=== PATIENT | female | born 1945 | race African-American/Black ===

== ENCOUNTER 2020-12-20 21:20 | Emergency (ER) | payer OTHER, SELFPAY ==
[2020-12-20 21:18] VITALS: BP 150/97; PULSE 90; RESP 14; TEMP 35.9; O2SAT 100
[2020-12-20 22:38] VITALS: PULSE 88; RESP 12; O2SAT 100
[2020-12-20 23:45] VITALS: PULSE 92; RESP 14
[2020-12-20 23:47] VITALS: BP 140/83; PULSE 92; RESP 13
[2020-12-21] VITALS: PULSE 93; RESP 16
[2020-12-21 00:02] VITALS: BP 143/106; PULSE 84; RESP 13
[2020-12-21 00:03] VITALS: PULSE 95; RESP 18
--- NOTE | 2020-12-21 01:14 | ED.WOUNDLAC ---
HPI - Wound/Laceration General Chief Complaint: Wound/Laceration Stated Complaint: leg pain Time Seen by Provider: 12/21/20 01:12 Source: EMS and RN notes reviewed Mode of arrival: EMS History of Present Illness HPI narrative: Patient is 75 years old -[place] female brought to the emergency room by ambulance from residential because of laceration at the left lower leg. Patient was trying to move out of their wheelchair to a bed and somehow lacerated her leg during this process. Patient denies other injuries. Related Data Allergies Allergy/AdvReac Type Severity Reaction Status Date / Time No Known Allergies Allergy Verified 12/20/20 21:56 Review of Systems Review of Systems: ROS unobtainable: Yes unobtainable due to mental status Exam Narrative: General appearance: Well-developed, well-nourished Skin: Normal color, laceration left ankle medially Head: Normocephalic, nontraumatic Eyes: Clear conjunctiva ENT: Oropharynx normal, ears normal, nose normal Neck: Supple, nontender Chest and respiratory: Airway patent, no respiratory distress, no accessory muscle use Heart: Regular rate/rhythm Abdomen: Soft, nontender, no organomegaly, quiet bowel sounds Vascular: Normal peripheral pulses, normal capillary refill. Musculoskeletal: Normal range of motion, nontender back Neurologic: Alert and oriented to her name and age only Course Course Emergency Course: Improved Vital Signs Vital signs: Vital Signs Temperature 35.9 C L 12/20/20 21:18 Pulse Rate 90 12/20/20 21:18 Respiratory Rate 14 12/20/20 21:18 Blood Pressure 150/97 H 12/20/20 21:18 Pulse Oximetry 100 12/20/20 21:18 Temperature 35.9 C L 12/20/20 21:18 Pulse Rate 90 12/20/20 21:18 Respiratory Rate 14 12/20/20 21:18 Blood Pressure 150/97 H 12/20/20 21:18 Pulse Oximetry 100 12/20/20 21:18 Procedures Laceration Laceration 1: Date: 12/21/20 Time: 01:29 Site: lower extremity Side (If applicable): left Size (cm): 7 Description: irregular Depth: simple, single layer Pre-repair: wound explored ====== Skin Level ====== Skin layer closed with: yoan (7) ====== Subcutaneous Layer ====== ====== Muscle Layer ====== ====== Tendon Layer ====== MDM - Wound/Laceration Differential Diagnosis Differential diagnosis: Likely laceration Critical Care Time Critical Care Time Critical Care Time: No Discharge Plan Discharge Clinical Impression: Laceration Patient Disposition: NH Correction/Asst Living Condition: Stable Instructions: Antibiotic Form, Laceration (DC) Additional Instructions: Return if symptoms are worsening , call your family physician for appointment, take Tylenol as as needed for aches and pain, continue home medications. Remove yoan in 10 days Prescriptions: New cephalexin 500 mg capsule 500 mg PO Q8H Qty: 30 RF: 0 Follow-up/Referrals: Keanu Bello MD [Physician] - UNKNOWN,DOCTOR [Primary Care Provider] -
[2020-12-21] MEDS: TETANUS,DIPHTHERIA,AC PERTUSSIS ADULT (0.5 ML) BOOSTRIX IM (03:15)
[2020-12-21] MEDS: CEPHALEXIN 500 MG CAPSULE PO (03:20)
--- NOTE | 2020-12-21 03:58 | PC.NURSE ---
Report to [facility] staff nurse at 0130.
== END 2020-12-21 04:06 ==
PROVIDERS: Emergency Provider Emergency Medicine
DX: S81.812A Laceration without foreign body, left lower leg, initial encounter (principal); W26.9XXA Contact with unspecified sharp object(s), initial encounter; Z23 Encounter for immunization
CPT/HCPCS: 12001; 90471; 90715; 99283; A9270

== ENCOUNTER 2022-04-28 10:43 | Inpatient (IN) | payer OTHER, SELFPAY ==
[2022-04-28] VITALS (20 sets, daily range): BP systolic 110–132; BP diastolic 57–75; PULSE 82–111; RESP 12–23; TEMP 35.8–36.2; O2SAT 96–100; BMI 21.4
--- NOTE | ~2022-04-28 | CT_ITS ---
EXAMINATION: CT abdomen pelvis w con DATE: 04/28/2022 12:21 INDICATION: Abdominal pain, nausea and vomiting TECHNIQUE: Computed tomography (CT) of the abdomen and pelvis was performed with 100 CC Omnipaque 350 intravenous contrast. Automated exposure control and iterative reconstruction technique were employe d. Exam dose: 580.06 mGy-cm total exam DLP. COMPARISON: None. FINDINGS: Mild atelectasis at the lung bases. Cardiomegaly. No pericardial or pleural effusion. Numerous stones and sludge are noted in the dependent aspect of the gallbladder. No gallbladder wall thickening or pericholecystic fluid or fat stranding is detected. No hepatic space-occupying mass lesion is detected. Normal splenic size. The pancreas is not optimall y outlined. No bile duct or pancreatic duct dilatation is evident. No adrenal mass lesion is evident. No renal mass lesion. Moderate bilateral hydronephrosis and very prominently distended urinary bladder. There is a Elias ca theter balloon inflated the junction of the urethra and urinary bladder. There is a very large uterus, measuring in excess of 20 cm vertical dimension with very prominent fib roid change of the fundus, which measures up to 9.7 cm AP dimension, with associated scattered calcif ications. There is atherosclerotic calcification of the abdominal aorta and iliac arteries; no abdominal aortic aneurysm. No bowel obstruction or intraperitoneal free air is evident. Diverticulosis of the colon; no apparent diverticulitis. Moderate anterior wedge compression fracture deformity of T12. Moderate chronic compression fracture deformity of L4. There is borderline grade 2/grade 3 anterolisthesis at L4-5 due to degenerative change at the apophys eal joints. There is moderately severe degenerative disc disease at L4-5. Moderately severe degenerative disc disease at L5-S1. IMPRESSION: Huge fibroid uterus Prominently distended urinary bladder; Elias catheter balloon inflated and junction of the urethra an d bladder; consider advancement of the Elias catheter further into the bladder. Moderate bilateral hydronephrosis Cholelithiasis Cardiomegaly Compression fracture deformities of T12 and L4 Borderline grade 2/grade 3 L4-5 anterolisthesis Moderately severe degenerative disc disease at L4-5 and L5-S1 Reviewed, dictated and finalized at [facility]. Reviewed, dictated and finalized at [facility]. [employer] SEWING MACHINE OPERATOR IMPRESSION: Huge fibroid uterus Prominently distended urinary bladder; Elias catheter balloon inflated and junc tion of the urethra and bladder; consider advancement of the Elias catheter fur ther into the bladder. Moderate bilateral hydronephrosis Cholelithiasis Cardiomegaly Compression fracture deformities of T12 and L4 Borderline grade 2/grade 3 L4-5 anterolisthesis Moderately severe degenerative disc disease at L4-5 and L5-S1
--- NOTE | 2022-04-28 11:02 | ECG_ITS ---
Measurements Intervals [place] Rate: 95 P: 71 SD: 223 QRS: -17 QRSD: 95 T: 42 QT: 381 QTc: 479 Interpretive Statements SINUS RHYTHM WITH FIRST DEGREE AV BLOCK NONSPECIFIC T-WAVE ABNORMALITY NO PREVIOUS ECG AVAILABLE FOR COMPARISON Electronically Signed On 04-28-2022 17:20:13 COSTUME TECHNICIAN by Jordon Crane M.D.
[2022-04-28] MEDS: ONDANSETRON INJ 4 MG/2 ML VIAL IV PUSH (11:12)
[2022-04-28] MEDS: LACTATED RINGERS 1,000 ML 999 ML IV CONT ×2 (11:13→13:45)
[2022-04-28 11:20] LABS: Basophils Percent Auto 0.2 % (0.2-1.2); Hematocrit 32.9 % (37.0-47.0); Hemoglobin 10.6 g/dL (12.0-15.0); Immature Granulocyte Absolute 0.04 K/mm3 (0.00-0.031); Immature Granulocyte Percent A 0.4 % (0-0.5); Lymphocytes Percent Auto 2.1 % (18.3-44.2); Mean Corpuscular HGB Conc 32.2 g/dl (32-36); Mean Corpuscular Hemoglobin 32.1 pg (26-34); Mean Corpuscular Volume 99.7 fl (80-100); Mean Platelet Volume 8.9 fl (7.4-10.4); Monocytes Absolute Auto 0.6 K/mm3 (0.1-0.6); Monocytes Percent Auto 5.8 % (2.6-8.5); Neutrophils Absolute Auto 8.6 K/mm3 (1.3-6.7); Neutrophils Percent Auto 91.5 % (45.5-73.1); Platelet Count Result 163 k/mm3 (150-375); White Blood Count 9.4 K/mm3 (4.5-10.0)
[2022-04-28 11:25] LABS: Alanine Aminotransferase 29 U/L (6-35); Albumin Level 3.8 g/dL (3.5-5.1); Alkaline Phosphatase 81 U/L (38-126); Anion Gap 7 mmol/L (8-16); Aspartate Amino Transferase 42 U/L (14-36); Bilirubin,Total 0.4 mg/dL (0.2-1.3); Blood Urea Nitrogen 30 mg/dL (7-17); Calcium 9.5 mg/dL (8.4-10.2); Carbon Dioxide 27 mmol/L (22-30); Chloride 105 mmol/L (98-107); Estimated CRCL calculation 37 ml/min; Estimated Glomerular Filt Rate > 60; Glucose 149 mg/dL (65-110); Lipase 39 U/L (23-300); Potassium 3.8 mmol/L (3.4-5.0); Sodium 139 mmol/L (137-145)
[2022-04-28 12:11] LABS: INR 1.5; Prothrombin Time 17.3 Seconds (11.1-14.7)
[2022-04-28 12:34] LABS: Lactic Acid Reflex 12.4 mmol/L (0.7-2.0)
[2022-04-28 12:38] LABS: Influenza A QL RT-PCR Negative (Negative); Influenza B QL RT-PCR Negative (Negative); SARS-CoV-2 RNA PCR Negative
[2022-04-28 12:59] LABS: Phenytoin Dilantin < 3 ug/mL (10-20)
--- NOTE | 2022-04-28 13:02 | ED.NAVMDI ---
HPI - Nausea/Vomiting/Diarrhea General Chief complaint: Nausea/Vomiting/Diarrhea Stated complaint: vomiting brown/green since last night Time Seen by Provider: 04/28/22 10:46 Source: EMS and RN notes reviewed Mode of arrival: EMS Limitations: other (poor historian) History of Present Illness HPI Narrative: This is a 76 year old female with history of epilepsy, hypertension, COPD who presents for evaluation of nausea and vomiting. Patient started having abdominal pain with nausea and vomiting last night. It is reported that she has green and brown emesis on her clothes. She also has chronic indwelling cohn catheter. FAmily reports patient had catheter changed last month when she was admitted to [facility] for a UTI. No fever, chills, chest pain or shortness of breath. Related Data Home Medications Medication Instructions Recorded Confirmed acetaminophen 325 mg capsule 650 mg PO ONCE PRN Pain 04/28/22 04/28/22 (Tylenol) amlodipine 10 mg tablet 10 mg PO DAILY 04/28/22 04/28/22 atorvastatin 80 mg tablet 80 mg PO HS 04/28/22 04/28/22 buspirone 7.5 mg tablet 7.5 mg PO BID 04/28/22 04/28/22 cholecalciferol (vitamin D3) 25 25 mcg PO DAILY 04/28/22 04/28/22 mcg (1,000 unit) tablet (Vitamin D3) diclofenac sodium 1 % topical gel 2 g topical QID PRN Pain 04/28/22 04/28/22 doxazosin 2 mg tablet 2 mg PO HS 04/28/22 04/28/22 ferrous sulfate 325 mg (65 mg 325 mg PO DAILY 04/28/22 04/28/22 iron) capsule,extended release hydralazine 25 mg tablet 25 mg PO BID 04/28/22 04/28/22 hydroxyzine pamoate 25 mg capsule 25 mg PO TID PRN Anxiety 04/28/22 04/28/22 (Vistaril) irbesartan 300 mg tablet (Avapro) 300 mg PO DAILY 04/28/22 04/28/22 multivit with minerals-iron 18 1 tablet PO DAILY 04/28/22 04/28/22 mg-folic ac 400 mcg-vit K 25 mcg tablet (Adults Multivitamin) tramadol 50 mg tablet 25 mg PO Q8H PRN Pain 04/28/22 04/28/22 trolamine salicylate 10 % topical 1 applic topical TID PRN Pain 04/28/22 04/28/22 cream Allergies Allergy/AdvReac Type Severity Reaction Status Date / Time No Known Allergies Allergy Verified 04/28/22 17:35 Review of Systems Review of Systems: All systems reviewed & are unremarkable except as noted in HPI and below Constitutional: Constitutional: Denies chills, Reports fatigue and Denies fever(s) Cardiovascular: Cardiovascular: Denies chest pain and Denies rapid heart rate Respiratory: Respiratory: Denies chest congestion, Denies cough and Denies dyspnea Musculoskeletal: Musculoskeletal: Reports back pain [facility] Past Medical History Medical History (Updated 04/28/22 @ 19:20 by Maryjo Corona MD) Hyperlipidemia Hypertension Surgical History Surgical History (Updated 04/28/22 @ 19:14 by Maryjo Corona MD) Surgical history unknown Social History Social History Alcohol intake: never Substance use: never Lack of Transportation: No Lack of Food: Never True Current Housing: I Have Housing Concerned About Future Housing: No Difficulty Paying Gas/Electric Bills: No Difficulty Paying for Meds: No Currently Unemployed: No Education: High School Diploma/GED Difficulty w/ Childcare or Family Care: No Spiritual care concerns: No Exam Const: General: no acute distress and alert Other: oriented to person, place and dater of HENMT: Face and sinus: normal facial exam Mouth: Yes Normal oral and palatal mucosa present, Yes lip normal and Yes moist mucous membranes Eyes: EOM: EOMs intact bilaterally Chest: Chest palpation & inspection: normal inspection of the chest Resp: Effort & Inspection: normal respiratory effort Auscultation: clear to auscultation bilaterally Cardio: Rate: regular rate Rhythm: regular rhythm Heart sounds: no murmurs GI: GI Palp: Yes Soft to palpation, Yes Tenderness to palpation present (GI) (Diffuse), No Guarding due to palpation present (GI), No Rigid due to palpation
[2022-04-28 13:25] LABS: Valproic Acid < 10.0 ug/mL (50-120)
[2022-04-28 13:35] LABS: Add Urine Microscopic? YES; Appearance Urine Turbid (Clear); Color Urine Yellow (Yellow)
[2022-04-28 13:50] LABS: Mucus Urine Heavy /lpf
[2022-04-28 14:02] LABS: Bacteria Urine 3+ /hpf; Triple Phosphate Crystal Urine Present /hpf
[2022-04-28 14:03] LABS: WBC Clumps Urine Present /hpf; WBC Urine >75 /hpf (0-3)
[2022-04-28 14:58] LABS: Reflex Lactic Acid Yes or No Add Lactic
[2022-04-28] MEDS: levoFLOXacin 500 MG/D5W 100 ML 500 MG/100 ML BAG 100 MG IVPB (15:02)
[2022-04-28 15:30] LABS: Lactic Acid 1.6 mmol/L (0.7-2.0)
[2022-04-28] MEDS: PANTOPRAZOLE SODIUM IV 40 MG VIAL IV PUSH ×2 (15:42→20:18)
[2022-04-28] MEDS: LACTATED RINGERS 1,000 ML 125 ML IV CONT (15:50)
--- NOTE | 2022-04-28 16:22 | PC.NURSE ---
regular diet tray ordered
--- NOTE | 2022-04-28 17:45 | ADMGEN ---
This patient, Jeane Villagomez, was admitted to Medical Room 347-. Patient/family oriented to hospital policies and general routines including ID bracelet, bed and alarms, visiting hours, pain management, procedures, bathroom and other care routines, personal items, smoking policy, room service/diet, and visiting hours. Information on how to activate the Rapid Response Team has been discussed. Patient/Family are encouraged to report perceived risks to care and to ask questions if they do not understand what they are told or what they should do.
--- NOTE | 2022-04-28 23:10 | PM.IMHP ---
H&P: HPI History of Present Illness Date/Time: 04/28/22 23:10 Chief Complaint: Nausea vomiting and diarrhea since last night. Narrative: This is a 76-year-old female patient who resides at [facility]. She does have a history of dementia and is a poor historian. The patient has a history of epilepsy, hypertension and COPD. The patient presented with evaluation for nausea vomiting. She also complained of abdominal pain. She has a chronic indwelling Elias catheter. The catheter was changed last month. The patient was recently treated at [facility] within the last couple weeks for UTI. The patient denies any fever chills or any shortness of breath. Abdominal pelvis CT was read as the following IMPRESSION:? Huge fibroid uterus Prominently distended urinary bladder; Elias catheter balloon inflated and junction of the urethra and bladder; consider advancement of the Elias catheter further into the bladder. Moderate bilateral hydronephrosis Cholelithiasis Cardiomegaly Compression fracture deformities of T12 and L4 Borderline grade 2/grade 3 L4-5 anterolisthesis Moderately severe degenerative disc disease at L4-5 and L5-S1 The Elias catheter was changed in the emergency room. H&H is 10.6 and 32.9. Neutrophil 91.5. Her lactic initially was 12.4 and the repeat was 1.6. Glucose 149. Patient was positive for UTI. Negative for influenza A/B and COVID. The patient was given Zofran, lactated Ringer's and Levaquin as well as Protonix in the emergency room. The patient is being admitted to observation status on the date of service of 04/28/2022. Review of Systems Review of Systems: See HPi All systems reviewed & are unremarkable except as noted in HPI and below Constitutional: Constitutional: Reports as per HPI and Reports no additional constitutional complaints Eyes: Eyes: Reports as per HPI and Reports no additional eye complaints ENT: Reports system reviewed and no additional complaints, except as documented and Reports Normal hearing present Cardiovascular: Cardiovascular: Reports no additional cardiovascular complaints Respiratory: Respiratory: Reports no additional respiratory complaints and Reports no additional respiratory complaints Gastrointestinal: Gastrointestinal: Reports as per HPI and Reports no additional gastrointestinal complaints Musculoskeletal: Musculoskeletal: Reports no additional musculoskeletal complaints Integumentary/Breasts: Skin/Breast: Reports system reviewed and no additional complaints, except as docu and Reports as per HPI Neurologic: Reports system reviewed and no additional complaints, except as documented, Reports as per HPI and Reports Normal hearing present Psychiatric: Psychiatric: Reports no additional psychiatric complaints and Reports as per HPI Endocrine: Endocrine: Reports no additional endocrine complaints Hematologic/Lymphatic: Hematologic/Lymphatic: Reports no additional hematologic/lymphatic complaints Allergic/Immunologic: Allergic/Immunologic: Reports no additional allergic/immunologic complaints [facility] Past Medical History Medical History (Updated 04/28/22 @ 23:17 by Darshana Booker NP) Anxiety Chronic indwelling Elias catheter Degenerative disc disease Dementia History of seizure disorder Hyperlipidemia Hypertension Neurogenic bladder Uterine fibroid UTI (urinary tract infection) Surgical History Surgical History (Updated 04/28/22 @ 19:14 by Maryjo Corona MD) Surgical history unknown Family History Family History (Updated 04/28/22 @ 23:18 by Darshana Booker NP) Unknown Unknown family medical history Social History Social History (Updated 04/28/22 @ 23:19 by Darshana Booker NP) Social History: The patient resides at [facility]. She tells me that she has 4 children and that she single. She stated that she has never smoked. She does not use alcohol marijuana or illicit drugs. According to the records she is and retir
[2022-04-29] MEDS: ATORVASTATIN 40 MG TABLET 80 MG PO ×2 (00:09→20:33)
[2022-04-29] MEDS: busPIRone HCL 2.5 MG TABLET PO ×3 (00:09→20:33)
[2022-04-29] MEDS: DOXAZOSIN MESYLATE 2 MG TABLET PO ×2 (00:09→20:33)
[2022-04-29] MEDS: busPIRone HCL 5 MG TABLET PO ×3 (00:10→20:33)
[2022-04-29] MEDS: LACTATED RINGERS 1,000 ML 125 ML IV CONT ×3 (00:10→20:34)
[2022-04-29] MEDS: hydrALAZINE HCL 25 MG TABLET PO ×3 (00:10→20:36)
[2022-04-29 06:00] VITALS: BP 109/53; PULSE 88; RESP 16; TEMP 35.8; O2SAT 98
[2022-04-29 07:27] LABS: Alanine Aminotransferase 29 U/L (6-35); Albumin Level 3.1 g/dL (3.5-5.1); Alkaline Phosphatase 61 U/L (38-126); Anion Gap 4 mmol/L (8-16); Aspartate Amino Transferase 57 U/L (14-36); Bilirubin,Total 0.8 mg/dL (0.2-1.3); Blood Urea Nitrogen 19 mg/dL (7-17); Calcium 8.8 mg/dL (8.4-10.2); Carbon Dioxide 26 mmol/L (22-30); Chloride 110 mmol/L (98-107); Estimated CRCL calculation 51 ml/min; Estimated Glomerular Filt Rate > 60; Glucose 75 mg/dL (65-110); Magnesium 1.6 mg/dL (1.6-2.3); Phosphorus 3.1 mg/dL (2.5-4.5); Potassium 3.7 mmol/L (3.4-5.0); Sodium 140 mmol/L (137-145)
[2022-04-29 08:43] LABS: Basophils Percent Auto 0.1 % (0.2-1.2); Eosinophils Percent Auto 0.3 % (0-4.4); Hematocrit 28.2 % (37.0-47.0); Immature Granulocyte Absolute 0.05 K/mm3 (0.00-0.031); Immature Granulocyte Percent A 0.4 % (0-0.5); Lymphocytes Absolute Auto 0.84 K/mm3 (0.9-3.2); Lymphocytes Percent Auto 7.4 % (18.3-44.2); Mean Corpuscular HGB Conc 31.9 g/dl (32-36); Mean Corpuscular Hemoglobin 31.7 pg (26-34); Mean Corpuscular Volume 99.3 fl (80-100); Mean Platelet Volume 9.1 fl (7.4-10.4); Monocytes Absolute Auto 0.7 K/mm3 (0.1-0.6); Monocytes Percent Auto 5.9 % (2.6-8.5); Neutrophils Absolute Auto 9.7 K/mm3 (1.3-6.7); Neutrophils Percent Auto 85.9 % (45.5-73.1); Platelet Count Result 132 k/mm3 (150-375); Red Blood Count 2.84 M/mm3 (4.2-5.4); White Blood Count 11.3 K/mm3 (4.5-10.0)
[2022-04-29] MEDS: amLODIPine BESYLATE 5 MG TABLET 10 MG PO (08:59)
[2022-04-29] MEDS: PANTOPRAZOLE SODIUM IV 40 MG VIAL IV PUSH ×2 (09:00→20:33)
[2022-04-29] MEDS: IRBESARTAN 150 MG TABLET 300 MG PO (09:00)
[2022-04-29] MEDS: MULTIVITAMINS /C LUTEIN (CENTRUM SILVER) TABLET *BKC 1 TAB PO (09:00)
[2022-04-29] MEDS: FERROUS SULFATE 324 MG TABLET PO ×2 (09:00→14:35)
[2022-04-29] MEDS: CHOLECALCIFEROL 1,000 UNITS TABLET 1000 UNITS PO (09:00)
--- NOTE | 2022-04-29 09:05 | PM.IMPN ---
Progress Note: A&P Assessment and Plan (1) UTI (urinary tract infection): Code(s): N39.0 - Urinary tract infection, site not specified Status: Acute Assessment and Plan: -lactic acid on admission 12.4 now stable at 1.6 -the patient was placed on Rocephin as per protocol. -tailor antibiotics to urine and blood cultures. -new Elias catheter placement (2) Chronic indwelling Elias catheter: Code(s): Z97.8 - Presence of other specified devices Status: Acute Assessment and Plan: The patient's Elias catheter was replaced in the emergency room. (3) Anemia: Code(s): D64.9 - Anemia, unspecified Status: Acute Assessment and Plan: Patient's hemoglobin on admission 10.6 and today hemoglobin 9.0 Trend H&H Anemia labs revealed low iron, TIBC and transferrin; normal ferritin Normal vitamin B12 and folate Stool occult blood ordered Protonix 40 mg b.i.d. Ferrous sulfate 324 mg daily ordered (4) Hypertension: Code(s): I10 - Essential (primary) hypertension Status: Acute Assessment and Plan: -continue with hydralazine -continue with Norvasc -continue with Avapro (5) Hyperlipidemia: Code(s): E78.5 - Hyperlipidemia, unspecified Status: Acute Assessment and Plan: -continue with atorvastatin (6) Neurogenic bladder: Code(s): N31.9 - Neuromuscular dysfunction of bladder, unspecified Status: Acute Assessment and Plan: Chronic indwelling Elias catheter (7) Anxiety: Code(s): F41.9 - Anxiety disorder, unspecified Status: Acute Assessment and Plan: Continue with hydroxyzine (8) Uterine fibroid: Code(s): D25.9 - Leiomyoma of uterus, unspecified Status: Acute Assessment and Plan: -I am not sure if the patient has followed up with Gynecology. A was an incidental finding on the CT scan (9) Degenerative disc disease: Status: Acute Assessment and Plan: Continue with tramadol and and continue with Aspercreme (10) Dementia: Code(s): F03.90 - Unspecified dementia, unspecified severity, without behavioral disturbance, psychotic disturbance, mood disturbance, and anxiety Status: Acute Assessment and Plan: The patient has been on BuSpar for behavior Continue with hydroxyzine for the anxiety Time Spent With Patient Time with patient: Greater than 35 minutes Subjective Date/time seen: 04/29/22 09:05 Interval history: 66-year-old female with a history of dementia, chronic indwelling catheter, seizure disorder, hypertension, neurogenic bladder, and hyperlipidemia. Patient is pleasantly confused when being interviewed. Patient does state that she has some abdominal pain but unable to elaborate. Patient denies chest pain, shortness a breath, nausea, vomiting, body aches and chills. Patient has not had an episode of emesis since arriving to the hospital. Patient's daughter is in the room during the interview. Answered all of patient's daughter's questions. Review of Systems Review of Systems: All systems reviewed & are unremarkable except as noted in HPI and below Exam Narrative: GENERAL: Comfortable, no acute distress, HENMT: moist mucous membranes NECK: no lymphadenopathy RESPIRATORY: clear to auscultation CARDIO: RRR GI: soft, nontender, bowel sounds present SKIN: no rashes EXTREMITIES: no edema, redness or tenderness NEURO: alert and oriented to time and self. Patient disoriented to place and situation. Objective Data Vital Signs Vital Signs: Vital Signs - 24 hr 04/28/22 10:49 04/28/22 11:31 04/28/22 11:46 Temperature 97.2 F L Pulse Rate 95 94 93 Respiratory Rate 16 19 15 Blood Pressure 132/75 125/72 121/74 Pulse Oximetry 100 99 100 Oxygen Delivery Room Air 04/28/22 11:47 04/28/22 12:30 04/28/22 12:52 Temperature Pulse Rate 94 95 93 Respiratory Rate 15 13 20 Blood Pressure Pulse Oximetry 100 100 97 Oxygen Delivery
[2022-04-29 11:16] LABS: Transferrin 138 mg/dL (206-381)
[2022-04-29 12:16] LABS: Folic Acid 15.3 ng/mL (2.76->20)
[2022-04-29 12:36] LABS: Iron 22 ug/dL (37-170)
[2022-04-29 12:45] LABS: Percent Iron Saturation 11 % (20-50)
[2022-04-29 13:08] LABS: Thyroid Stimulating Hormone Reflex 0.365 uIU/mL (0.465-4.68)
[2022-04-29 14:44] VITALS: BP 94/51; PULSE 74; RESP 14; TEMP 35.9; O2SAT 97
[2022-04-29 15:00] LABS: Free T4 Free Thyroxine Reflex 1.35 ng/dL (0.78-2.19)
[2022-04-29 16:10] LABS: Total Triiodothyronine (T3) 0.52 NG/ML (0.97-1.69)
[2022-04-29 16:30] LABS: Hemoglobin 9.1 g/dL (12.0-15.0)
[2022-04-29 20:23] VITALS: BP 147/63; PULSE 71; RESP 16; TEMP 36.4; O2SAT 97
[2022-04-29 22:07] LABS: Hematocrit 27.6 % (37.0-47.0); Hemoglobin 8.8 g/dL (12.0-15.0)
[2022-04-30 04:32] VITALS: BP 125/66; PULSE 79; RESP 18; TEMP 37.2; O2SAT 100
[2022-04-30] MEDS: LACTATED RINGERS 1,000 ML 125 ML IV CONT ×3 (04:38→20:22)
[2022-04-30 06:13] LABS: Hematocrit 28.1 % (37.0-47.0); Hemoglobin 8.8 g/dL (12.0-15.0)
[2022-04-30] MEDS: amLODIPine BESYLATE 5 MG TABLET 10 MG PO (08:33)
[2022-04-30] MEDS: FERROUS SULFATE 324 MG TABLET PO (08:33)
[2022-04-30] MEDS: busPIRone HCL 2.5 MG TABLET PO ×2 (08:33→20:21)
[2022-04-30] MEDS: CHOLECALCIFEROL 1,000 UNITS TABLET 1000 UNITS PO (08:33)
[2022-04-30] MEDS: busPIRone HCL 5 MG TABLET PO ×2 (08:33→20:22)
[2022-04-30] MEDS: hydrALAZINE HCL 25 MG TABLET PO ×2 (08:34→20:22)
[2022-04-30] MEDS: PANTOPRAZOLE SODIUM IV 40 MG VIAL IV PUSH ×2 (08:34→20:22)
[2022-04-30] MEDS: MULTIVITAMINS /C LUTEIN (CENTRUM SILVER) TABLET *BKC 1 TAB PO (08:34)
[2022-04-30] MEDS: IRBESARTAN 150 MG TABLET 300 MG PO (08:34)
[2022-04-30 10:37] LABS: Hematocrit 34.5 % (37.0-47.0); Hemoglobin 10.9 g/dL (12.0-15.0); Mean Corpuscular HGB Conc 31.6 g/dl (32-36); Mean Corpuscular Hemoglobin 31.3 pg (26-34); Mean Corpuscular Volume 99.1 fl (80-100); Mean Platelet Volume 9.2 fl (7.4-10.4); Platelet Count Result 155 k/mm3 (150-375); Red Blood Count 3.48 M/mm3 (4.2-5.4); Red Cell Distribution Width 13.8 % (11.5-14.5); White Blood Count 7.9 K/mm3 (4.5-10.0)
[2022-04-30 10:47] LABS: Anion Gap 6 mmol/L (8-16); Blood Urea Nitrogen 15 mg/dL (7-17); Calcium 9.3 mg/dL (8.4-10.2); Carbon Dioxide 29 mmol/L (22-30); Chloride 110 mmol/L (98-107); Estimated CRCL calculation 51 ml/min; Estimated Glomerular Filt Rate > 60; Glucose 117 mg/dL (65-110); Potassium 3.3 mmol/L (3.4-5.0); Sodium 145 mmol/L (137-145)
[2022-04-30] MEDS: POTASSIUM CHLORIDE 20 MEQ PACKET (FOR LIQUID) 40 MEQ PO (12:58)
[2022-04-30 13:58] VITALS: BP 116/54; PULSE 70; RESP 16; TEMP 36.2; O2SAT 99
--- NOTE | 2022-04-30 14:14 | PM.IMPN ---
Progress Note: A&P Assessment and Plan (1) UTI (urinary tract infection): Code(s): N39.0 - Urinary tract infection, site not specified Status: Acute Assessment and Plan: -lactic acid on admission 12.4 now stable at 1.6 -the patient was placed on Rocephin as per protocol. -1 blood culture preliminary result revealed staphylococcal epidermidis. This could possibly be a contaminant. Repeat blood culture pending. -urine culture revealed Gram-negative bacilli. -sensitivities pending. Will tailor antibiotics to appropriate treatment. (2) Chronic indwelling Elias catheter: Code(s): Z97.8 - Presence of other specified devices Status: Acute Assessment and Plan: The patient's Elias catheter was replaced in the emergency room. (3) Anemia: Code(s): D64.9 - Anemia, unspecified Status: Acute Assessment and Plan: Patient's hemoglobin on admission 10.6 and today hemoglobin 10.9 Trend H&H Anemia labs revealed low iron, TIBC and transferrin; normal ferritin Normal vitamin B12 and folate Stool occult blood ordered Protonix 40 mg b.i.d. Ferrous sulfate 324 mg daily ordered (4) Hypertension: Code(s): I10 - Essential (primary) hypertension Status: Acute Assessment and Plan: -continue with hydralazine -continue with Norvasc -continue with Avapro (5) Hyperlipidemia: Code(s): E78.5 - Hyperlipidemia, unspecified Status: Acute Assessment and Plan: -continue with atorvastatin (6) Neurogenic bladder: Code(s): N31.9 - Neuromuscular dysfunction of bladder, unspecified Status: Acute Assessment and Plan: Chronic indwelling Elias catheter (7) Anxiety: Code(s): F41.9 - Anxiety disorder, unspecified Status: Acute Assessment and Plan: Continue with hydroxyzine (8) Uterine fibroid: Code(s): D25.9 - Leiomyoma of uterus, unspecified Status: Acute Assessment and Plan: -I am not sure if the patient has followed up with Gynecology. A was an incidental finding on the CT scan -daughter unsure if they had known about the fibroid or not. (9) Degenerative disc disease: Status: Acute Assessment and Plan: Continue with tramadol and and continue with Aspercreme (10) Dementia: Code(s): F03.90 - Unspecified dementia, unspecified severity, without behavioral disturbance, psychotic disturbance, mood disturbance, and anxiety Status: Acute Assessment and Plan: The patient has been on BuSpar for behavior Continue with hydroxyzine for the anxiety Time Spent With Patient Time with patient: Greater than 35 minutes Subjective Date/time seen: 04/30/22 14:14 Interval history: 66-year-old female with a history of dementia, chronic indwelling catheter, seizure disorder, hypertension, neurogenic bladder, and hyperlipidemia. Patient is pleasantly confused when being interviewed. Patient states that she has some lower extremity pain the unable to describe to me the specifics. Patient does have a history of contracture on lower extremities. Patient denies chest pain, shortness a breath, nausea, vomiting, abdominal pain, diarrhea, fever, cough, congestion. Review of Systems Review of Systems: All systems reviewed & are unremarkable except as noted in HPI and below Exam Narrative: GENERAL: Comfortable, no acute distress, HENMT: moist mucous membranes NECK: no lymphadenopathy RESPIRATORY: clear to auscultation CARDIO: RRR GI: soft, nontender, bowel sounds present SKIN: Small sore/ulcer on left back upper leg/buttock EXTREMITIES: no edema, redness or tenderness NEURO: alert and oriented to time and self. Patient disoriented to place and situation. Objective Data Vital Signs Vital Signs: Vital Signs - 24 hr 04/29/22 14:44 04/29/22 20:23 04/30/22 04:32 Temperature 96.6 F L 97.6 F 98.9 F Pulse Rate 74 71 79
[2022-04-30 20:00] VITALS: PULSE 70; RESP 16; O2SAT 99
[2022-04-30] MEDS: ATORVASTATIN 40 MG TABLET 80 MG PO (20:21)
[2022-04-30] MEDS: DOXAZOSIN MESYLATE 2 MG TABLET PO (20:22)
[2022-04-30 22:00] VITALS: BP 139/80; PULSE 76; RESP 20; TEMP 37.3; O2SAT 100
[2022-05-01] MEDS: LACTATED RINGERS 1,000 ML 125 ML IV CONT ×3 (05:10→20:27)
[2022-05-01 06:00] VITALS: BP 130/78; PULSE 74; RESP 20; TEMP 37.2; O2SAT 100
[2022-05-01 06:08] LABS: Alanine Aminotransferase 28 U/L (6-35); Albumin Level 2.6 g/dL (3.5-5.1); Alkaline Phosphatase 60 U/L (38-126); Anion Gap 1 mmol/L (8-16); Aspartate Amino Transferase 50 U/L (14-36); Bilirubin,Total 0.5 mg/dL (0.2-1.3); Blood Urea Nitrogen 10 mg/dL (7-17); Calcium 8.3 mg/dL (8.4-10.2); Carbon Dioxide 28 mmol/L (22-30); Chloride 108 mmol/L (98-107); Estimated CRCL calculation 59 ml/min; Estimated Glomerular Filt Rate > 60; Glucose 91 mg/dL (65-110); Potassium 3.1 mmol/L (3.4-5.0); Sodium 137 mmol/L (137-145)
[2022-05-01 06:11] LABS: Hematocrit 27.9 % (37.0-47.0); Hemoglobin 8.8 g/dL (12.0-15.0); Immature Platelet Fraction Pct 1.7 % (0.9-11.2); Mean Corpuscular HGB Conc 31.5 g/dl (32-36); Mean Corpuscular Hemoglobin 31.7 pg (26-34); Mean Corpuscular Volume 100.4 fl (80-100); Mean Platelet Volume 9.5 fl (7.4-10.4); Platelet Count Result 148 k/mm3 (150-375); Red Blood Count 2.78 M/mm3 (4.2-5.4); Red Cell Distribution Width 13.6 % (11.5-14.5); White Blood Count 5.2 K/mm3 (4.5-10.0)
[2022-05-01] MEDS: amLODIPine BESYLATE 5 MG TABLET 10 MG PO (08:54)
[2022-05-01] MEDS: busPIRone HCL 2.5 MG TABLET PO ×2 (08:55→20:22)
[2022-05-01] MEDS: PANTOPRAZOLE SODIUM IV 40 MG VIAL IV PUSH ×2 (08:55→20:22)
[2022-05-01] MEDS: IRBESARTAN 150 MG TABLET 300 MG PO (08:55)
[2022-05-01] MEDS: hydrALAZINE HCL 25 MG TABLET PO ×2 (08:55→20:23)
[2022-05-01] MEDS: FERROUS SULFATE 324 MG TABLET PO (08:55)
[2022-05-01] MEDS: MULTIVITAMINS /C LUTEIN (CENTRUM SILVER) TABLET *BKC 1 TAB PO (08:55)
[2022-05-01] MEDS: CHOLECALCIFEROL 1,000 UNITS TABLET 1000 UNITS PO (08:55)
[2022-05-01] MEDS: busPIRone HCL 5 MG TABLET PO ×2 (08:55→20:22)
--- NOTE | 2022-05-01 09:35 | PM.IMPN ---
Progress Note: A&P Assessment and Plan (1) UTI (urinary tract infection): Code(s): N39.0 - Urinary tract infection, site not specified Status: Acute Assessment and Plan: -lactic acid on admission 12.4 now stable at 1.6 -the patient was placed on Rocephin as per protocol. -1 blood culture preliminary result revealed staphylococcal epidermidis. This could possibly be a contaminant. Repeat blood culture pending. -urine culture positive for Proteus mirabilis -sensitivity to ceftriaxone -continue current antibiotic regimen -it is unknown whether UTI was caused by catheter placement or not. Patient unable to be discharged today due to lack of placement. Hopefully plan for discharge tomorrow. (2) Chronic indwelling Elias catheter: Code(s): Z97.8 - Presence of other specified devices Status: Acute Assessment and Plan: The patient's Elias catheter was replaced in the emergency room. (3) Anemia: Code(s): D64.9 - Anemia, unspecified Status: Acute Assessment and Plan: Patient's hemoglobin on admission 10.6 and today hemoglobin 10.9 Trend H&H Anemia labs revealed low iron, TIBC and transferrin; normal ferritin Normal vitamin B12 and folate Stool occult blood ordered Protonix 40 mg b.i.d. Ferrous sulfate 324 mg daily ordered (4) Hypertension: Code(s): I10 - Essential (primary) hypertension Status: Acute Assessment and Plan: -continue with hydralazine -continue with Norvasc -continue with Avapro (5) Hyperlipidemia: Code(s): E78.5 - Hyperlipidemia, unspecified Status: Acute Assessment and Plan: -continue with atorvastatin (6) Neurogenic bladder: Code(s): N31.9 - Neuromuscular dysfunction of bladder, unspecified Status: Acute Assessment and Plan: Chronic indwelling Elias catheter (7) Anxiety: Code(s): F41.9 - Anxiety disorder, unspecified Status: Acute Assessment and Plan: Continue with hydroxyzine (8) Uterine fibroid: Code(s): D25.9 - Leiomyoma of uterus, unspecified Status: Acute Assessment and Plan: -I am not sure if the patient has followed up with Gynecology. A was an incidental finding on the CT scan -daughter unsure if they had known about the fibroid or not. (9) Degenerative disc disease: Status: Acute Assessment and Plan: Continue with tramadol and and continue with Aspercreme (10) Dementia: Code(s): F03.90 - Unspecified dementia, unspecified severity, without behavioral disturbance, psychotic disturbance, mood disturbance, and anxiety Status: Acute Assessment and Plan: The patient has been on BuSpar for behavior Continue with hydroxyzine for the anxiety (11) Hypokalemia: Code(s): E87.6 - Hypokalemia Status: Acute Assessment and Plan: Patient potassium this morning 3.1. Patient given 60 mEq of potassium. Time Spent With Patient Time with patient: Greater than 35 minutes Subjective Date/time seen: 05/01/22 09:35 Interval history: 66-year-old female with a history of dementia, chronic indwelling catheter, seizure disorder, hypertension, neurogenic bladder, and hyperlipidemia. Patient is pleasantly confused when being interviewed. Patient continues to have lower extremity pain. Patient denies chest pain, shortness a breath, nausea, vomiting, abdominal pain, diarrhea, fever, cough, congestion. Review of Systems Review of Systems: All systems reviewed & are unremarkable except as noted in HPI and below Exam Narrative: GENERAL: Comfortable, no acute distress, HENMT: moist mucous membranes NECK: no lymphadenopathy RESPIRATORY: clear to auscultation CARDIO: RRR GI: soft, nontender, bowel sounds present SKIN: Small sore/ulcer on left back upper leg/buttock EXTREMITIES: no edema, redness or tenderness NEURO: alert and oriented to time and ernie
[2022-05-01] MEDS: POTASSIUM CHLORIDE 20 MEQ PACKET (FOR LIQUID) 60 MEQ PO (10:04)
--- NOTE | 2022-05-01 13:24 | P.CDI_ITS ---
CDI Query Clarified Diagnosis Clarified Diagnosis: Urine culture from 04/28 grew >100,000 proteus mirabilis. Chronic indwelling catheter documented. Changed in ER. Pt started on Ceftriaxone. Clarification request - UTI has been documented, chronic indwelling cohn catheter documented. Please clarify if UTI is: * due to/associated with chronic indwelling cohn catheter * not due to/associated with chronic indwelling cohn catheter * unable to determine
--- NOTE | 2022-05-01 13:28 | PM.DS ---
DS: Admitting Diagnosis Discharge Date 05/01/2022 Admitting Diagnosis UTI, nausea vomiting DS: Discharge Diagnosis Discharge Diagnosis (1) UTI (urinary tract infection): Code(s): N39.0 - Urinary tract infection, site not specified Status: Acute (2) Chronic indwelling Elias catheter: Code(s): Z97.8 - Presence of other specified devices Status: Acute (3) Anemia: Code(s): D64.9 - Anemia, unspecified Status: Acute (4) Hypertension: Code(s): I10 - Essential (primary) hypertension Status: Acute (5) Hyperlipidemia: Code(s): E78.5 - Hyperlipidemia, unspecified Status: Acute (6) Neurogenic bladder: Code(s): N31.9 - Neuromuscular dysfunction of bladder, unspecified Status: Acute (7) Anxiety: Code(s): F41.9 - Anxiety disorder, unspecified Status: Acute (8) Uterine fibroid: Code(s): D25.9 - Leiomyoma of uterus, unspecified Status: Acute (9) Degenerative disc disease: Status: Acute (10) Dementia: Code(s): F03.90 - Unspecified dementia, unspecified severity, without behavioral disturbance, psychotic disturbance, mood disturbance, and anxiety Status: Acute (11) Hypokalemia: Code(s): E87.6 - Hypokalemia Status: Acute DS: Summary Hospital Course Reason for hospitalization: UTI, nausea vomiting Hospital Course: 76-year-old female with history of epilepsy, hypertension, COPD and dementia. Patient arrived to the ER on 04/28/2022 due to nausea vomiting. Patient has known chronic indwelling Elias catheter that had been changed last month when patient was admitted for UTI. CT abdomen pelvis revealed huge fibroid uterus, prominently distended urinary bladder, Elias catheter balloon inflated and junction of the urethra bladder, and moderate bilateral hydronephrosis. Patient's Elias catheter changed in ER. Patient's initial lactic acid 12.4 and repeat was 1.6. UA revealed 11-20 RBC, >75 WBC, heavy mucus, +3 bacteria. Patient's white blood cell count 11.3 on admission. White blood cell count trended down into normal range during patient's hospitalization. Patient was pleasantly confused during her stay. Patient was started on ceftriaxone 1 g IV. Urine culture revealed Proteus mirabilis. Sensitivity confirm that Proteus was sensitive to ceftriaxone. Patient had 1 blood culture positive for Staphylococcus epidermidis. Repeat blood cultures no growth to date. Will monitor blood culture. Under the assumption that Staph epidermis was a contaminant. Patient is stable for discharge. Will continue patient on p.o. antibiotics. Status at Discharge Functional status at discharge: wheelchair bound Overall status at discharge: patient is progressing back to baseline Time Spent with Patient Time attestation: Total time spent providing and/or coordinating discharge services: DS: Data Data Completed and Pending Labs on day of discharge: Labs from last 24 hours 05/01/22 05/01/22 05:39 05:39 WBC 5.2 RBC 2.78 L Hgb 8.8 L Hct 27.9 L MCV 100.4 H MCH 31.7 MCHC 31.5 L RDW 13.6 Plt Count 148 L MPV 9.5 % Immature Plt Fraction 1.7 Sodium 137 Potassium 3.1 L Chloride 108 H Carbon Dioxide 28 Anion Gap 1 L BUN 10 D Creatinine 0.60 L Estim Creat Clear Calc 59 Estimated GFR > 60 Glucose 91 Calcium 8.3 L Total Bilirubin 0.5 AST 50 H ALT 28 Alkaline Phosphatase 60 Total Protein 6.0 L Albumin 2.6 L Preliminary micro results at discharge 04/30/22 10:28 Blood Culture - Preliminary Blood 04/30/22 10:27 Blood Culture - Preliminary Blood 04/28/22 15:02 Blood Culture - Preliminary Blood Staphylococcus epidermis 04/28/22 15:02 Blood Culture - Preliminary Blood Discharge Plan Discharge Attending physician on discharge: Zach Cardona Discharging Clinician: Destiny Hernandez Patient Disposition: SNF Activity:
[2022-05-01 15:15] VITALS: BP 137/75; PULSE 73; RESP 18; TEMP 36.3; O2SAT 100
[2022-05-01 20:00] VITALS: PULSE 69; RESP 14; O2SAT 100
[2022-05-01] MEDS: ATORVASTATIN 40 MG TABLET 80 MG PO (20:22)
[2022-05-01] MEDS: DOXAZOSIN MESYLATE 2 MG TABLET PO (20:23)
[2022-05-01] MEDS: traMADol HCL (*CRX) 25 MG TABLET PO (20:23)
[2022-05-01 21:59] VITALS: BP 116/48; PULSE 69; RESP 14; TEMP 36.5; O2SAT 100
[2022-05-02 05:51] LABS: Hematocrit 31.8 % (37.0-47.0); Mean Corpuscular HGB Conc 31.4 g/dl (32-36); Mean Corpuscular Hemoglobin 31.6 pg (26-34); Mean Corpuscular Volume 100.6 fl (80-100); Mean Platelet Volume 9.3 fl (7.4-10.4); Platelet Count Result 140 k/mm3 (150-375); Red Blood Count 3.16 M/mm3 (4.2-5.4); Red Cell Distribution Width 13.2 % (11.5-14.5); White Blood Count 3.9 K/mm3 (4.5-10.0)
[2022-05-02 06:00] VITALS: BP 155/88; PULSE 69; RESP 16; TEMP 36.7; O2SAT 100
[2022-05-02 06:17] LABS: Alanine Aminotransferase 34 U/L (6-35); Alkaline Phosphatase 71 U/L (38-126); Anion Gap 2 mmol/L (8-16); Aspartate Amino Transferase 51 U/L (14-36); Bilirubin,Total 0.5 mg/dL (0.2-1.3); Blood Urea Nitrogen 6 mg/dL (7-17); Calcium 8.7 mg/dL (8.4-10.2); Carbon Dioxide 29 mmol/L (22-30); Chloride 110 mmol/L (98-107); Estimated CRCL calculation 69 ml/min; Estimated Glomerular Filt Rate > 60; Glucose 96 mg/dL (65-110); Potassium 3.4 mmol/L (3.4-5.0); Sodium 141 mmol/L (137-145)
[2022-05-02] MEDS: amLODIPine BESYLATE 5 MG TABLET 10 MG PO (09:16)
[2022-05-02] MEDS: CHOLECALCIFEROL 1,000 UNITS TABLET 1000 UNITS PO (09:16)
[2022-05-02] MEDS: IRBESARTAN 150 MG TABLET 300 MG PO (09:16)
[2022-05-02] MEDS: hydrALAZINE HCL 25 MG TABLET PO (09:17)
[2022-05-02] MEDS: FERROUS SULFATE 324 MG TABLET PO (09:17)
[2022-05-02] MEDS: busPIRone HCL 2.5 MG TABLET PO (09:17)
[2022-05-02] MEDS: busPIRone HCL 5 MG TABLET PO (09:17)
[2022-05-02] MEDS: MULTIVITAMINS /C LUTEIN (CENTRUM SILVER) TABLET *BKC 1 TAB PO (09:18)
[2022-05-02 14:00] VITALS: BP 120/76; PULSE 79; RESP 16; TEMP 36.3; O2SAT 100
--- NOTE | 2022-05-02 15:47 | PM.DS ---
DS: Admitting Diagnosis Discharge Date 05/02/22 Admitting Diagnosis UTI, nausea vomiting DS: Discharge Diagnosis Discharge Diagnosis (1) UTI (urinary tract infection): Code(s): N39.0 - Urinary tract infection, site not specified Status: Acute (2) Chronic indwelling Elias catheter: Code(s): Z97.8 - Presence of other specified devices Status: Acute (3) Anemia: Code(s): D64.9 - Anemia, unspecified Status: Acute (4) Hypertension: Code(s): I10 - Essential (primary) hypertension Status: Acute (5) Hyperlipidemia: Code(s): E78.5 - Hyperlipidemia, unspecified Status: Acute (6) Neurogenic bladder: Code(s): N31.9 - Neuromuscular dysfunction of bladder, unspecified Status: Acute (7) Anxiety: Code(s): F41.9 - Anxiety disorder, unspecified Status: Acute (8) Uterine fibroid: Code(s): D25.9 - Leiomyoma of uterus, unspecified Status: Acute (9) Degenerative disc disease: Status: Acute (10) Dementia: Code(s): F03.90 - Unspecified dementia, unspecified severity, without behavioral disturbance, psychotic disturbance, mood disturbance, and anxiety Status: Acute (11) Hypokalemia: Code(s): E87.6 - Hypokalemia Status: Acute DS: Summary Hospital Course Reason for hospitalization: UTI, nausea vomiting Hospital Course: 76-year-old female with history of epilepsy, hypertension, COPD and dementia.? Patient arrived to the ER on 04/28/2022 due to nausea vomiting.? Patient has known chronic indwelling Elias catheter that had been changed last month when patient was admitted for UTI.? CT abdomen pelvis revealed huge fibroid uterus, prominently distended urinary bladder, Elias catheter balloon inflated and junction of the urethra bladder, and moderate bilateral hydronephrosis.? Patient's Elias catheter changed in ER.? Patient's initial lactic acid 12.4 and repeat was 1.6.? UA revealed 11-20 RBC, >75 WBC, heavy mucus, +3 bacteria.? Patient's white blood cell count 11.3 on admission.? White blood cell count trended down into normal range during patient's hospitalization.? Patient was pleasantly confused during her stay.? Patient was started on ceftriaxone 1 g IV.? Urine culture revealed Proteus mirabilis.? Sensitivity confirm that Proteus was sensitive to ceftriaxone.? Patient had 1 blood culture positive for Staphylococcus epidermidis.? Repeat blood cultures no growth to date.? Will monitor blood culture.? Under the assumption that Staph epidermis was a contaminant.? Patient discharged after 48 hours of clear blood cultures. Blood cultures will be monitored until finalized. Patient will be contacted if necessary pending culture results. Patient is stable for discharge.? Will continue patient on p.o. antibiotics. Time Spent with Patient Time attestation: Total time spent providing and/or coordinating discharge services: Exam Narrative: GENERAL: Comfortable, no acute distress, HENMT: moist mucous membranes NECK: no lymphadenopathy RESPIRATORY: clear to auscultation CARDIO: RRR GI: soft, nontender, bowel sounds present SKIN: Small sore/ulcer on left back upper leg/buttock EXTREMITIES: no edema, redness or tenderness NEURO: alert and oriented to time and self. Patient disoriented to place and situation. DS: Data Data Completed and Pending Labs on day of discharge: Labs from last 24 hours 05/02/22 05/02/22 05:37 05:37 WBC 3.9 L RBC 3.16 L Hgb 10.0 L Hct 31.8 L MCV 100.6 H MCH 31.6 MCHC 31.4 L RDW 13.2 Plt Count 140 L MPV 9.3 Sodium 141 Potassium 3.4 Chloride 110 H Carbon Dioxide 29 Anion Gap 2 L BUN 6 L Creatinine 0.50 L Estim Creat Clear Calc 69 Estimated GFR > 60 Glucose 96 Calcium 8.7 Total Bilirubin 0.5 AST 51 H ALT 34 Alkaline Phosphatase 71 Total Protein 6.0 L Albumin 3.0 L Preliminary micro results at discharge
[2022-05-02 17:41] LABS: EDCOVIDSCREEN Negative (Negative)
--- NOTE | 2022-05-06 13:32 | PC.NURSE ---
Blood cx are negative.
== END 2022-05-02 19:30 | DRG 463 ==
LOC: ANHED 11:58 → ANH3MED 16:57
PROVIDERS: Nurse Practitioner; Admitting Provider Family Medicine; Emergency Provider General Practice; Visit Provider Internal Medicine Critical Care Medicine
DX: N39.0 Urinary tract infection, site not specified (principal); D64.9 Anemia, unspecified; N31.9 Neuromuscular dysfunction of bladder, unspecified; B96.4 Proteus (mirabilis) (morganii) as the cause of diseases classified elsewhere; E87.6 Hypokalemia; E86.0 Dehydration; I10 Essential (primary) hypertension; J44.9 Chronic obstructive pulmonary disease, unspecified; E78.5 Hyperlipidemia, unspecified; D25.9 Leiomyoma of uterus, unspecified; M51.36 Other intervertebral disc degeneration, lumbar region; G40.909 Epilepsy, unspecified, not intractable, without status epilepticus; F41.9 Anxiety disorder, unspecified; F03.90 Unspecified dementia, unspecified severity, without behavioral disturbance, psychotic disturbance, mood disturbance, and anxiety; Z20.822 Contact with and (suspected) exposure to COVID-19; Z96.0 Presence of urogenital implants; Z97.8 Presence of other specified devices
CPT/HCPCS: 36415; 51702; 74177; 80048; 80053; 80164; 80185; 81001; 82607; 82728; 82746; 83540; 83550; 83605; 83690; 83735; 84100; 84439; 84443; 84466; 84480; 85014; 85018; 85025; 85027; 85055; 85610; 85730; 87040; 87077; 87086; 87147; 87181; 87186; 87426; 87636; 93005; 96361; 96365; 96375; 96376; 99285; A9270; C9113; C9803; G0378; G0379; J0131; J0696; J1956; J2405; J7120; Q9967

== ENCOUNTER 2023-12-29 11:29 | Inpatient (IN) | payer OTHER, SELFPAY ==
[2023-12-29] VITALS (26 sets, daily range): BP systolic 90–154; BP diastolic 59–130; PULSE 79–112; RESP 16–22; TEMP 36.5–37.9; O2SAT 95–100; BMI 25.1
--- NOTE | ~2023-12-29 | XR_ITS ---
MODIFIED ESOPHAGRAM HISTORY: Dysphagia. TECHNIQUE: Modified barium esophagram was performed on 12/31/2023. I administered fluoroscopy and perf ormed the exam with speech pathologist. Patient was seated for lateral fluoroscopic imaging for mary alice stion of thin liquids, pudding, solids and quantified amounts, followed by thin liquids in uncontroll ed amounts. This was recorded on tape. A single fluoroscopic spot image was also recorded. The DAP fo r this procedure was 3.96 Gycm2. The amount of fluoroscopy time used during this procedure was 1.5 mi nutes. FINDINGS: Oral stage: There is abnormal oral holding. Additionally oral residue spilled into the pharynx. Pharyngeal stage: Couple episodes of flash laryngeal penetration small amount of contrast which immed iately cleared without aspiration. There is with retention of residual contrast within the vallecula and in the capacious piriform sinuses. Cervical/esophageal stage: Adequate function. IMPRESSION: Oropharyngeal dysphagia with flash laryngeal penetration without aspiration. Please senthil elate with speech pathologist findings and specific feeding recommendations. Reviewed, dictated and finalized at location A. IMPRESSION: Oropharyngeal dysphagia with flash laryngeal penetration without as piration. Please correlate with speech pathologist findings and specific feedi ng recommendations.
--- NOTE | ~2023-12-29 | US_ITS ---
EXAMINATION: US abdomen limited DATE: 12/29/2023 16:13 INDICATION: Abnormal liver function tests. TECHNIQUE: Multiple grayscale and Doppler ultrasound images of the abdomen were obtained. COMPARISON: CT abdomen and pelvis 04/28/2022 FINDINGS: The visualized portions of the head and body of the pancreas are normal. The liver is boni l without focal lesion. There is normal flow in main portal vein. The gallbladder is normal in size a nd contains gallstones. No gallbladder wall thickening or sonographic Carlson sign. The common duct is normal and measures 3 mm. IMPRESSION: 1. Cholelithiasis. No evidence of acute cholecystitis. Reviewed, dictated and finalized at location E.
--- NOTE | ~2023-12-29 | MR_ITS ---
EXAMINATION: MR brain/brain stem wo con DATE: 12/30/2023 12:50 INDICATION: Altered mental status. TECHNIQUE: Magnetic resonance imaging (MRI) of the brain and brainstem was performed without intraven ous contrast. COMPARISON: Head CT 12/29/2023 FINDINGS: There are old infarcts involving the left temporal, parietal, and occipital lobes and left insula. There is an old infarct in right frontal parietal region. There are old infarcts in the bilat eral thalami and right basal ganglia. There are scattered areas of nonspecific increased T2-weighted signal intensity in the cerebral white matter. There is no intracranial hemorrhage, acute infarction, or abnormal intracranial mass lesion. There is ex vacuo dilatation of left lateral ventricle. There is mucosal thickening in the paranasal sinuses. The orbits are normal. The mastoid air cells are norm al. IMPRESSION: 1. Old infarcts in the brain. 2. Moderate nonspecific cerebral white matter disease, which likely represents chronic small vessel i schemic disease. Reviewed, dictated and finalized at location E. IMPRESSION: 1. Old infarcts in the brain. 2. Moderate nonspecific cerebral white matter disease, which likely represents chronic small vessel ischemic disease.
--- NOTE | ~2023-12-29 | XR_ITS ---
EXAMINATION: XR chest 1V DATE: 12/29/2023 13:11 INDICATION: Altered mental status. Fever. TECHNIQUE: A single frontal view of the chest was obtained. COMPARISON: CT abdomen and pelvis 04/28/2022 FINDINGS: There are airspace opacities in right perihilar region and at right lung base. No pleural e ffusion or pneumothorax. The heart size is normal. IMPRESSION: 1. Airspace opacities in right perihilar region and at right lung base, consistent with atelectasis/s carring versus pneumonia. Reviewed, dictated and finalized at location A. IMPRESSION: 1. Airspace opacities in right perihilar region and at right lung base, consist ent with atelectasis/scarring versus pneumonia.
--- NOTE | ~2023-12-29 | CT_ITS ---
EXAMINATION: CT brain wo con DATE: 12/29/2023 13:20 INDICATION: Altered mental status. TECHNIQUE: Computed tomography (CT) of the head was performed without intravenous contrast. The mA wa s adjusted according to patient size. Iterative reconstruction technique was employed. The dose-lengt h product was 605.33 mGy-cm. COMPARISON: None FINDINGS: There is an old infarct involving left temporal, parietal, and occipital lobes and left ins jaron. There is an old infarct in right frontal parietal region. There are old infarcts in the bilatera l thalami. There are scattered areas of low attenuation in the cerebral white matter. There is no in tracranial hemorrhage, acute infarction, or abnormal intracranial mass lesion. There is ex vacuo dila tation of left lateral ventricle. The paranasal sinuses are clear. The orbits are normal. The mastoid air cells are normal. There is cerumen in the external auditory canals. IMPRESSION: 1. Old infarcts involving the left temporal, parietal, and occipital lobes and left insula, right frontal parietal region, and bilateral thalami. 2. Moderate nonspecific cerebral white matter disease, which likely represents chronic small vessel i schemic disease. Reviewed, dictated and finalized at location A. IMPRESSION: 1. Old infarcts involving the left temporal, parietal, and occipital lobes and left insula, right frontal parietal region, and bilater al thalami. 2. Moderate nonspecific cerebral white matter disease, which likely represents chronic small vessel ischemic disease.
--- NOTE | 2023-12-29 11:42 | ECG_ITS ---
Test Date: 2023-12-29 13:26:54 Measurements Intervals [place] Rate: 89 P: 45 AL: 223 QRS: -26 QRSD: 112 T: 134 QT: 356 QTc: 435 Interpretive Statements SINUS RHYTHM WITH FIRST DEGREE AV BLOCK WITH OCCASIONAL ECTOPIC PREMATURE COMPLEXES BORDERLINE LEFT AXIS DEVIATION [QRS AXIS < -20] MODERATE INTRAVENTRICULAR CONDUCTION DELAY [110+ ms QRS DURATION] NONSPECIFIC ST & T-WAVE ABNORMALITY No previous ECG available for comparison Electronically Signed On 12-30-2023 13:37:40 CDT by Frank Kirkland M.D.
--- NOTE | 2023-12-29 12:08 | ED.AMS ---
HPI - Altered Mental Status General Chief Complaint: Altered Mental Status Stated Complaint: FTT Time Seen by Provider: 12/29/23 11:52 Source: patient, family (daughters) and EMS Mode of arrival: EMS Limitations: altered mental status History of Present Illness HPI narrative: Patient presents initially with 2 daughters (later a third) who provide history. Initially reported to be presenting for failure to thrive by EMS. Family reports patient has baseline anxiety and it was reported that she had been having decreased sleep and increased anxiety recently so facility started her on Xanax and trazodone but then she became altered/more somnolent. Given this, they discontinued these medications, last dose Xanax on Sunday and last dose Trazodone on Sunday. She has had more swelling in her hands and face since Sunday. She continued to be less alert/oriented than normal so was taken to [place] on and diagnosed with a UTI; given IV antibiotic dose and discharged with Rx for PO but patient has had decreased oral intake (food or drink) for the past 2 days so hasn't been taking it. At baseline she is occasionally confused but generally normally very talkative. Lately she has not been following commands which is unusual. Not normally on O2. No history of diabetes mellitus. EMS noted her initial blood sugar was 50mg/dL for which she was given glucagon. Related Data Home Medications Medication Instructions Recorded Confirmed acetaminophen 325 mg capsule 650 mg PO ONCE PRN Pain 04/28/22 12/29/23 (Tylenol) amlodipine 10 mg tablet 10 mg PO DAILY 04/28/22 12/29/23 atorvastatin 80 mg tablet 80 mg PO HS 04/28/22 12/29/23 cholecalciferol (vitamin D3) 25 25 mcg PO DAILY 04/28/22 12/29/23 mcg (1,000 unit) tablet (Vitamin D3) diclofenac sodium 1 % topical gel 2 g topical QID PRN Pain 04/28/22 12/29/23 doxazosin 2 mg tablet 2 mg PO HS 04/28/22 12/29/23 ferrous sulfate 325 mg (65 mg 325 mg PO DAILY 04/28/22 12/29/23 iron) capsule,extended release hydralazine 25 mg tablet 25 mg PO BID 04/28/22 12/29/23 irbesartan 300 mg tablet (Avapro) 300 mg PO DAILY 04/28/22 12/29/23 tramadol 50 mg tablet 25 mg PO BID PRN Pain 04/28/22 12/29/23 trolamine salicylate 10 % topical 1 applic topical TID PRN Pain 04/28/22 12/29/23 cream Adults Multivitamin 1 tablet PO DAILY 12/29/23 12/29/23 buspirone 10 mg tablet 10 mg PO TID 12/29/23 12/29/23 cephalexin 500 mg capsule 500 mg PO Q6H 12/29/23 12/29/23 levothyroxine 75 mcg tablet 37.5 mcg PO DAILY 12/29/23 12/29/23 mirtazapine 15 mg tablet 15 mg PO HS 12/29/23 12/29/23 Allergies Allergy/AdvReac Type Severity Reaction Status Date / Time No Known Allergies Allergy Verified 04/28/22 17:35 [facility] Past Medical History Medical History Anemia Anxiety Cerebrovascular accident Chronic indwelling Elias catheter Degenerative disc disease Dementia Hyperlipidemia Hypertension Hypothyroidism Neurogenic bladder Osteoarthritis Seizure disorder Uterine fibroid Surgical History Surgical History (Updated 12/29/23 @ 21:46 by Nadira Wright PA-C) History of section Family History Family History Unknown Unknown family medical history Social History Social History Social History: Patient has 3 daughters and a son Code status: Full code. Code status full code per ME documentation and POLST signed 12/09/20; confirmed by family in conversation 12/29/2023 Smoking status: Never smoker Alcohol intake: never Substance use: never Do You Feel Safe in your Home?: Yes Lack of Transportation: No Lack of Food: Never True Current Housing: I Have Housing Concerned About Future Housing: No Difficulty Paying Gas/Electric Bills: No Difficulty Paying for Meds: No Currently Unemployed: No Education: High School Diploma/GED Difficulty w/ Childcare or Family Care: No Additional living arrangements comments: . Lives at [facility] in [place]. Spiritual care concerns: No Exam Narrative: HEAD: Normocephalic, atraumatic. EYES: Non injected, non icteric ENT: Nares clear, no rhinorrhea or epistaxis. Dry lips and mucous membranes. NECK: Supple. CHEST: No respiratory distress. HEART: Regular rate and rhythm. . ABDOMEN: Soft, nondistended. EXTREMITIES: Lower extremity edema and edema in RUE. SKIN: Warm, dry, no rash. NEURO:Alert to verbal stimuli but not following commands. PSYCH: Congruent mood and affect. Course Vital Signs Vital signs: Vital Signs Temperature 100.3 F H 12/29/23 11:34 Pulse Rate 95 12/29/23 11:34 Respiratory Rate 22 H 12/29/23 11:34 Blood Pressure 125/75 12/29/23 11:34 Pulse Oximetry 95 12/29/23 11:34 Oxygen Delivery Nasal Cannula 12/29/23 11:34 Oxygen Flow Rate 2 12/29/23 11:34 Temperature 98.0 F 12/30/23 20:37 Pulse Rate 76 12/30/23 20:37 Respiratory Rate 16 12/30/23 20:37 Blood Pressure 100/58 L 12/30/23 20:37 Pulse Oximetry 95 12/30/23 20:37 Oxygen Delivery Room Air 12/30/23 10:00 Oxygen Flow Rate 2 12/29/23 21:05 MDM - Altered Mental Status MDM Narrative Medical decision making narrative: Patient initially reports with report of Failure to thrive given decreased PO intake for 2 days. Family reports she had been having decreased sleep and report of increased anxiety for which she was started on both Xanax and trazodone but became somnolent with this so discontinued; last dose of each Sunday and Sunday respectively. Diagnosed with a UTI at [place] on and given IV Abx but not taking PO Abx given not eating/drinking since. Patient arrives to the Emergency Department on nasal cannula at 2 liters/minute and is borderline febrile at 100.3 F with mild tachypnea but otherwise without tachycardia (though borderline) and not hypotension. EMS had noted BS 50mg/dL s/p administration of glucagon. Given concern for sepsis, will try to identify a source of infection with UA and CXR and obtain labs as well as blood culture and give IV fluids; no contraindication per review of NH documentation however she does have some edema in her arms (R > L) so will defer full 30cc/kg at this time and reassess. Will also given acetaminophen initially with low threshold to initiate antibiotics. Patient was diagnosed with a urinary tract infection when she was seen at [place] emergency department on and received 1 dose of IV antibiotics with a prescription for the rest but has not been tolerating p.o. thus has not had antibiotics since . Will attempt to obtain results of urinalysis and urine culture if available and will initiate broad spectrum antibiotics in the interim. Cr is double what it had been previously and BUN 4 fold higher than previous consistent with acute kidney injury and possible degree of acute renal failure. She also has transaminitis and mild hypoalbuminemia. Normocytic anemia which has been chronic/stable from previous. Patient has also had a chronic thrombocytopenia with slight worsening today. Given constellation of borderline febrile, anemia, thrombocytopenia, renal dysfunction, and mental status changes in addition with liver abnormalities, there is concern for TTP. Discussed with lab via phone at 13:40 regarding the CBC with diff and clinical laboratory technician reviews slides and confirms none initially seen but will add a manual differential. ADAMTS 13 is a send out lab which won't result same day. Lab returns phone call at 14:00; morphology has been entered. Schistocytes NOT seen. PLASMIC Score 4 points (+1 for INR <1.5, +1 for Cr <2.0, +1 for No active cancer , +1 no history solid organ/stem cell transplant); low risk, 0% risk of [id number] deficiency. DIMER slightly elevated though can be age-adjusted so will defer further investigation to assess for PE. Will add azithromycin for full broad-spectrum coverage given consideration of possible pneumonia. Patient admitted to on-call hospitalist Dr. Zavaleta after discussing with WILLIAM Mccarthy who recommends adding on RUQ US given elevated LFTs. Ordered and phone call placed given weekend coverage. Family updated and in agreement. Patient is slightly more alert, opening her eyes and intermittently following commands but still not verbally providing responses. Abnormal TSH results; T4 and T3 ordered. Gonzalez-Wartofsky Point Scale for Thyrotoxicosis Predicts likelihood that biochemical thyrotoxicosis is thyroid storm. Temperature: +10 TEST DEVELOPMENT ENGINEER effects: +20 GI-hepatic dysfunction: 0 HR (bpm): +5 CHF: +5 Atrial fibrillation present: 0 Precipitating event: 0 Result: 40, suggests possible impending thyroid storm. I do believe patient has multiple other reasons for her mentation changes as above however did notify WILLIAM Waddell who will watch for T4 and T3 results and assess. Notified her RUQ was also performed and resulted. Differential Diagnosis Differential diagnosis: Likely altered mental status, delirium, dementia, hypoglycemia, hyponatremia, subarachnoid hemorrhage and sepsis (infection due to UTI versus PNA vs alternative infection; considered TTP as above; PE; acute heart failure) Lab Data Attestation: I reviewed the patient's lab results. 12/30/23 04:48 12/30/23 16:08 Labs: Lab Results 12/29/23 12/29/23 12/29/23 Range/Units 12:10 12:11 12:13 WBC 9.4 (4.5-10.0) K/mm3 RBC 3.65 L (4.2-5.4) M/mm3 Hgb 10.8 L (12.0-15.0) g/dL Hct 33.9 L (37.0-47.0) % MCV 92.9 (80-100) fl MCH 29.6 (26-34) pg MCHC 31.9 L (32-36) g/dl RDW 14.1 (11.5-14.5) % Plt Count 87 L (150-375) k/mm3 MPV 11.3 H (7.4-10.4) fl Immature Gran % (Auto) 0.3 (0-0.5) % Neut % (Auto) 87.8 H (45.5-73.1) % Lymph % (Auto) 5.8 L (18.3-44.2) % [place] % (Auto) 5.7 (2.6-8.5) % Eos % (Auto) 0.1 (0-4.4) % Baso % (Auto) 0.3 (0.2-1.2) % Lymph # (Auto) 0.54 L (0.9-3.2) K/mm3 [place] # (Auto) 0.5 (0.1-0.6) K/mm3 Eos # (Auto) 0.0 (0-0.3) K/mm3 Baso # (Auto) 0.0 (0.0-0.1) K/mm3 Abs Immat Gran (auto) 0.03 (0.00-0.031) K/mm3 Absolute Neuts (auto) 8.2 H (1.3-6.7) K/mm3 Absolute Nucleated RBC 0.030 H (0.0-0.012) K/mm3 Nucleated RBC % 0.3 H (0.0-0.2) % Platelet Estimate Decreased (Adequate) % Immature Plt Fraction 7.2 (0.9-11.2) % Hypochromasia 1+ Poikilocytosis Anisocytosis 1+ Microcytosis 1+ (NORMAL) Ovalocytes 1+ [place] Cells 1+ Schistocytes None seen ESR (0-20) mm/hr Absolute Retic 0.02 (0.02-0.10) 10^6/uL Percent Retic 0.64 L (0.7-4.3) % Immature Retic Fraction 8.6 (3.0-15.9) % Retic Hgb Content 33.6 (28.2-36.6) pg Haptoglobin Pending PT 14.8 H (11.1-14.7) Seconds INR 1.1 APTT 33.7 (22.3-36.8) Seconds Fibrinogen 436 (215-510) mg/dl D-Dimer 0.73 H (<0.48) ug/mL [id number] Activity [id number] Activity Intrp Sodium 143 (137-145) mmol/L Potassium 3.5 (3.4-5.0) mmol/L Chloride 109 H (98-107) mmol/L Carbon Dioxide 21 L (22-30) mmol/L Anion Gap 13 H (4-12) mmol/L BUN 37 H D (7-17) mg/dL Creatinine 1.10 H (0.7-1.0) mg/dL Estim Creat Clear Calc Not Reportable Estimated GFR 58 L (59 - ) Glucose 62 L (65-110) mg/dL POC Capillary Glucose (65-105) mg/dl Lactic Acid 0.6 L (0.7-2.0) mmol/L Calcium 9.2 (8.4-10.2) mg/dL Magnesium 1.8 (1.6-2.3) mg/dL Iron (37-170) ug/dL TIBC (261-462) ug/dL % Saturation (20-50) % Ferritin (11.1-264) ng/mL Total Bilirubin 1.1 (0.2-1.3) mg/dL AST 246 H (14-36) U/L ALT 230 H (6-35) U/L Alkaline Phosphatase 150 H (38-126) U/L Ammonia (9-30) umol/L Lactate Dehydrogenase 247 H (120-246) U/L Total Creatine Kinase (30-135) U/L Troponin I 0.019 (0.000-0.034) ng/mL C-Reactive Protein 0.6 (<1.0) mg/dL NT-Pro-B Natriuret Pep 1040 H (19.9-100) pg/mL Total Protein 7.0 (6.3-8.2) g/dL Albumin 3.3 L (3.5-5.1) g/dL Vitamin B12 (239-931) pg/mL Folate (2.76->20) ng/mL TSH (0.465-4.680) uIU/mL TSH (Reflex) (0.465-4.68) uIU/mL Free T4 (0.78-2.19) ng/mL Free T3 pg/mL Total T3 (0.97-1.69) NG/ML Urine Color (Yellow) Urine Appearance (Clear) Urine pH (5.0-9.0) Ur Specific [place] (1.001-1.035) Urine Protein (Negative) mg/dL Urine Glucose (UA) (Negative) mg/dL Urine Ketones (Negative) mg/dL Ur Blood (Man) (Negative) Urine Nitrate (Negative) Urine Bilirubin (Negative) Urine Urobilinogen (<2.0) mg/dL Leukocyte Esterase Rfl (Negative) SHAMEKA/UL Urine RBC (0-2) /hpf Urine WBC (0-3) /hpf Ur Squamous Epith Cells (Few) /hpf Urine Bacteria /hpf Urine Casts Nasal MRSA (PCR) (NOT DETECTE) Salicylates < 1.0 L (2-20) mg/dL Urine Opiates Screen (Negative) Urine Methadone Screen (Negative) Acetaminophen < 10 L (10-30) ug/mL Ur Barbiturates Screen (Negative) Ur Phencyclidine Scrn (Negative) Ur Amphetamine Screen (Negative) U Benzodiazepines Scrn (Negative) Urine Cocaine Screen (Negative) U Cannabinoids Screen (Negative) Hepatitis A IgM Ab (Negative) Hep Bs Antigen (Negative) Hep B Core IgM Ab (Negative) Hepatitis C Ab Screen (Negative) Influenza A (RT-PCR) (Negative) Influenza B (RT-PCR) (Negative) RSV (RT-PCR) (Negative) SARS-CoV-2 RNA (RT-PCR) (Negative) 12/29/23 12/29/23 12/29/23 Range/Units 13:48 13:49 13:54 WBC (4.5-10.0) K/mm3 RBC (4.2-5.4) M/mm3 Hgb (12.0-15.0) g/dL Hct (37.0-47.0) % MCV (80-100) fl MCH (26-34) pg MCHC (32-36) g/dl RDW (11.5-14.5) % Plt Count (150-375) k/mm3 MPV (7.4-10.4) fl Immature Gran % (Auto) (0-0.5) % Neut % (Auto) (45.5-73.1) % Lymph % (Auto) (18.3-44.2) % [place] % (Auto) (2.6-8.5) % Eos % (Auto) (0-4.4) % Baso % (Auto) (0.2-1.2) % Lymph # (Auto) (0.9-3.2) K/mm3 [place] # (Auto) (0.1-0.6) K/mm3 Eos # (Auto) (0-0.3) K/mm3 Baso # (Auto) (0.0-0.1) K/mm3 Abs Immat Gran (auto) (0.00-0.031) K/mm3 Absolute Neuts (auto) (1.3-6.7) K/mm3 Absolute Nucleated RBC (0.0-0.012) K/mm3 Nucleated RBC % (0.0-0.2) % Platelet Estimate (Adequate) % Immature Plt Fraction (0.9-11.2) % Hypochromasia Poikilocytosis Anisocytosis Microcytosis (NORMAL) Ovalocytes [place] Cells Schistocytes ESR (0-20) mm/hr Absolute Retic (0.02-0.10) 10^6/uL Percent Retic (0.7-4.3) % Immature Retic Fraction (3.0-15.9) % Retic Hgb Content (28.2-36.6) pg Haptoglobin PT (11.1-14.7) Seconds INR APTT (22.3-36.8) Seconds Fibrinogen (215-510) mg/dl D-Dimer (<0.48) ug/mL [id number] Activity Pending [id number] Activity Intrp Pending Sodium (137-145) mmol/L Potassium (3.4-5.0) mmol/L Chloride (98-107) mmol/L Carbon Dioxide (22-30) mmol/L Anion Gap (4-12) mmol/L BUN (7-17) mg/dL Creatinine (0.7-1.0) mg/dL Estim Creat Clear Calc Estimated GFR (59 - ) Glucose (65-110) mg/dL POC Capillary Glucose (65-105) mg/dl Lactic Acid (0.7-2.0) mmol/L Calcium (8.4-10.2) mg/dL Magnesium (1.6-2.3) mg/dL Iron (37-170) ug/dL TIBC (261-462) ug/dL % Saturation (20-50) % Ferritin (11.1-264) ng/mL Total Bilirubin (0.2-1.3) mg/dL AST (14-36) U/L ALT (6-35) U/L Alkaline Phosphatase (38-126) U/L Ammonia (9-30) umol/L Lactate Dehydrogenase (120-246) U/L Total Creatine Kinase (30-135) U/L Troponin I (0.000-0.034) ng/mL C-Reactive Protein (<1.0) mg/dL NT-Pro-B Natriuret Pep (19.9-100) pg/mL Total Protein (6.3-8.2) g/dL Albumin (3.5-5.1) g/dL Vitamin B12 (239-931) pg/mL Folate (2.76->20) ng/mL TSH (0.465-4.680) uIU/mL TSH (Reflex) (0.465-4.68) uIU/mL Free T4 (0.78-2.19) ng/mL Free T3 pg/mL Total T3 (0.97-1.69) NG/ML Urine Color Yellow (Yellow) Urine Appearance Clear (Clear) Urine pH 5.5 (5.0-9.0) Ur Specific [place] 1.021 (1.001-1.035) Urine Protein Trace (Negative) mg/dL Urine Glucose (UA) Negative (Negative) mg/dL Urine Ketones 2+ H (Negative) mg/dL Ur Blood (Man) 2+ H (Negative) Urine Nitrate Negative (Negative) Urine Bilirubin Negative (Negative) Urine Urobilinogen 0.2 (<2.0) mg/dL Leukocyte Esterase Rfl 2+ H (Negative) SHAMEKA/UL Urine RBC 0-2 (0-2) /hpf Urine WBC 21-50 H (0-3) /hpf Ur Squamous Epith Cells None seen (Few) /hpf Urine Bacteria None seen /hpf Urine Casts 0-2 Nasal MRSA (PCR) (NOT DETECTE) Salicylates (2-20) mg/dL Urine Opiates Screen Negative (Negative) Urine Methadone Screen Negative (Negative) Acetaminophen (10-30) ug/mL Ur Barbiturates Screen Negative (Negative) Ur Phencyclidine Scrn Negative (Negative) Ur Amphetamine Screen Negative (Negative) U Benzodiazepines Scrn Negative (Negative) Urine Cocaine Screen Negative (Negative) U Cannabinoids Screen Negative (Negative) Hepatitis A IgM Ab (Negative) Hep Bs Antigen (Negative) Hep B Core IgM Ab (Negative) Hepatitis C Ab Screen (Negative) Influenza A (RT-PCR) Negative (Negative) Influenza B (RT-PCR) Negative (Negative) RSV (RT-PCR) Negative (Negative) SARS-CoV-2 RNA (RT-PCR) Negative (Negative) 12/29/23 12/29/23 12/29/23 Range/Units 14:25 15:49 17:02 WBC (4.5-10.0) K/mm3 RBC (4.2-5.4) M/mm3 Hgb (12.0-15.0) g/dL Hct (37.0-47.0) % MCV (80-100) fl MCH (26-34) pg MCHC (32-36) g/dl RDW (11.5-14.5) % Plt Count (150-375) k/mm3 MPV (7.4-10.4) fl Immature Gran % (Auto) (0-0.5) % Neut % (Auto) (45.5-73.1) % Lymph % (Auto) (18.3-44.2) % [place] % (Auto) (2.6-8.5) % Eos % (Auto) (0-4.4) % Baso % (Auto) (0.2-1.2) % Lymph # (Auto) (0.9-3.2) K/mm3 [place] # (Auto) (0.1-0.6) K/mm3 Eos # (Auto) (0-0.3) K/mm3 Baso # (Auto) (0.0-0.1) K/mm3 Abs Immat Gran (auto) (0.00-0.031) K/mm3 Absolute Neuts (auto) (1.3-6.7) K/mm3 Absolute Nucleated RBC (0.0-0.012) K/mm3 Nucleated RBC % (0.0-0.2) % Platelet Estimate (Adequate) % Immature Plt Fraction (0.9-11.2) % Hypochromasia Poikilocytosis Anisocytosis Microcytosis (NORMAL) Ovalocytes [place] Cells Schistocytes ESR 134 H (0-20) mm/hr Absolute Retic (0.02-0.10) 10^6/uL Percent Retic (0.7-4.3) % Immature Retic Fraction (3.0-15.9) % Retic Hgb Content (28.2-36.6) pg Haptoglobin PT (11.1-14.7) Seconds INR APTT (22.3-36.8) Seconds Fibrinogen (215-510) mg/dl D-Dimer (<0.48) ug/mL [id number] Activity [id number] Activity Intrp Sodium (137-145) mmol/L Potassium (3.4-5.0) mmol/L Chloride (98-107) mmol/L Carbon Dioxide (22-30) mmol/L Anion Gap (4-12) mmol/L BUN (7-17) mg/dL Creatinine (0.7-1.0) mg/dL Estim Creat Clear Calc Estimated GFR (59 - ) Glucose (65-110) mg/dL POC Capillary Glucose (65-105) mg/dl Lactic Acid (0.7-2.0) mmol/L Calcium (8.4-10.2) mg/dL Magnesium (1.6-2.3) mg/dL Iron 70 (37-170) ug/dL TIBC 245 L (261-462) ug/dL % Saturation 29 (20-50) % Ferritin 279.00 H (11.1-264) ng/mL Total Bilirubin (0.2-1.3) mg/dL AST (14-36) U/L ALT (6-35) U/L Alkaline Phosphatase (38-126) U/L Ammonia < 9 L (9-30) umol/L Lactate Dehydrogenase (120-246) U/L Total Creatine Kinase 313 H (30-135) U/L Troponin I (0.000-0.034) ng/mL C-Reactive Protein (<1.0) mg/dL NT-Pro-B Natriuret Pep (19.9-100) pg/mL Total Protein (6.3-8.2) g/dL Albumin (3.5-5.1) g/dL Vitamin B12 > 1000.0 H (239-931) pg/mL Folate > 20.0 H (2.76->20) ng/mL TSH 0.249 L (0.465-4.680) uIU/mL TSH (Reflex) 0.240 L (0.465-4.68) uIU/mL Free T4 1.53 (0.78-2.19) ng/mL Free T3 pg/mL Total T3 (0.97-1.69) NG/ML Urine Color (Yellow) Urine Appearance (Clear) Urine pH (5.0-9.0) Ur Specific [place] (1.001-1.035) Urine Protein (Negative) mg/dL Urine Glucose (UA) (Negative) mg/dL Urine Ketones (Negative) mg/dL Ur Blood (Man) (Negative) Urine Nitrate (Negative) Urine Bilirubin (Negative) Urine Urobilinogen (<2.0) mg/dL Leukocyte Esterase Rfl (Negative) SHAMEKA/UL Urine RBC (0-2) /hpf Urine WBC (0-3) /hpf Ur Squamous Epith Cells (Few) /hpf Urine Bacteria /hpf Urine Casts Nasal MRSA (PCR) Not detected (NOT DETECTE) Salicylates (2-20) mg/dL Urine Opiates Screen (Negative) Urine Methadone Screen (Negative) Acetaminophen (10-30) ug/mL Ur Barbiturates Screen (Negative) Ur Phencyclidine Scrn (Negative) Ur Amphetamine Screen (Negative) U Benzodiazepines Scrn (Negative) Urine Cocaine Screen (Negative) U Cannabinoids Screen (Negative) Hepatitis A IgM Ab (Negative) Hep Bs Antigen (Negative) Hep B Core IgM Ab (Negative) Hepatitis C Ab Screen (Negative) Influenza A (RT-PCR) (Negative) Influenza B (RT-PCR) (Negative) RSV (RT-PCR) (Negative) SARS-CoV-2 RNA (RT-PCR) (Negative) 12/29/23 12/29/23 12/29/23 Range/Units 17:02 17:16 20:57 WBC (4.5-10.0) K/mm3 RBC (4.2-5.4) M/mm3 Hgb (12.0-15.0) g/dL Hct (37.0-47.0) % MCV (80-100) fl MCH (26-34) pg MCHC (32-36) g/dl RDW (11.5-14.5) % Plt Count (150-375) k/mm3 MPV (7.4-10.4) fl Immature Gran % (Auto) (0-0.5) % Neut % (Auto) (45.5-73.1) % Lymph % (Auto) (18.3-44.2) % [place] % (Auto) (2.6-8.5) % Eos % (Auto) (0-4.4) % Baso % (Auto) (0.2-1.2) % Lymph # (Auto) (0.9-3.2) K/mm3 [place] # (Auto) (0.1-0.6) K/mm3 Eos # (Auto) (0-0.3) K/mm3 Baso # (Auto) (0.0-0.1) K/mm3 Abs Immat Gran (auto) (0.00-0.031) K/mm3 Absolute Neuts (auto) (1.3-6.7) K/mm3 Absolute Nucleated RBC (0.0-0.012) K/mm3 Nucleated RBC % (0.0-0.2) % Platelet Estimate (Adequate) % Immature Plt Fraction (0.9-11.2) % Hypochromasia Poikilocytosis Anisocytosis Microcytosis (NORMAL) Ovalocytes [place] Cells Schistocytes ESR (0-20) mm/hr Absolute Retic (0.02-0.10) 10^6/uL Percent Retic (0.7-4.3) % Immature Retic Fraction (3.0-15.9) % Retic Hgb Content (28.2-36.6) pg Haptoglobin PT (11.1-14.7) Seconds INR APTT (22.3-36.8) Seconds Fibrinogen (215-510) mg/dl D-Dimer (<0.48) ug/mL [id number] Activity [id number] Activity Intrp Sodium (137-145) mmol/L Potassium (3.4-5.0) mmol/L Chloride (98-107) mmol/L Carbon Dioxide (22-30) mmol/L Anion Gap (4-12) mmol/L BUN (7-17) mg/dL Creatinine (0.7-1.0) mg/dL Estim Creat Clear Calc Estimated GFR (59 - ) Glucose (65-110) mg/dL POC Capillary Glucose 73 113 H (65-105) mg/dl Lactic Acid (0.7-2.0) mmol/L Calcium (8.4-10.2) mg/dL Magnesium (1.6-2.3) mg/dL Iron (37-170) ug/dL TIBC (261-462) ug/dL % Saturation (20-50) % Ferritin (11.1-264) ng/mL Total Bilirubin (0.2-1.3) mg/dL AST (14-36) U/L ALT (6-35) U/L Alkaline Phosphatase (38-126) U/L Ammonia (9-30) umol/L Lactate Dehydrogenase (120-246) U/L Total Creatine Kinase (30-135) U/L Troponin I (0.000-0.034) ng/mL C-Reactive Protein (<1.0) mg/dL NT-Pro-B Natriuret Pep (19.9-100) pg/mL Total Protein (6.3-8.2) g/dL Albumin (3.5-5.1) g/dL Vitamin B12 (239-931) pg/mL Folate (2.76->20) ng/mL TSH (0.465-4.680) uIU/mL TSH (Reflex) (0.465-4.68) uIU/mL Free T4 1.37 (0.78-2.19) ng/mL Free T3 pg/mL Pending Total T3 0.60 L (0.97-1.69) NG/ML Urine Color (Yellow) Urine Appearance (Clear) Urine pH (5.0-9.0) Ur Specific [place] (1.001-1.035) Urine Protein (Negative) mg/dL Urine Glucose (UA) (Negative) mg/dL Urine Ketones (Negative) mg/dL Ur Blood (Man) (Negative) Urine Nitrate (Negative) Urine Bilirubin (Negative) Urine Urobilinogen (<2.0) mg/dL Leukocyte Esterase Rfl (Negative) SHAMEKA/UL Urine RBC (0-2) /hpf Urine WBC (0-3) /hpf Ur Squamous Epith Cells (Few) /hpf Urine Bacteria /hpf Urine Casts Nasal MRSA (PCR) (NOT DETECTE) Salicylates (2-20) mg/dL Urine Opiates Screen (Negative) Urine Methadone Screen (Negative) Acetaminophen (10-30) ug/mL Ur Barbiturates Screen (Negative) Ur Phencyclidine Scrn (Negative) Ur Amphetamine Screen (Negative) U Benzodiazepines Scrn (Negative) Urine Cocaine Screen (Negative) U Cannabinoids Screen (Negative) Hepatitis A IgM Ab Negative (Negative) Hep Bs Antigen Negative (Negative) Hep B Core IgM Ab Negative (Negative) Hepatitis C Ab Screen Negative (Negative) Influenza A (RT-PCR) (Negative) Influenza B (RT-PCR) (Negative) RSV (RT-PCR) (Negative) SARS-CoV-2 RNA (RT-PCR) (Negative) 12/30/23 12/30/23 12/30/23 Range/Units 00:21 04:48 05:11 WBC 5.6 (4.5-10.0) K/mm3 RBC 3.10 L (4.2-5.4) M/mm3 Hgb 9.1 L (12.0-15.0) g/dL Hct 29.1 L (37.0-47.0) % MCV 93.9 (80-100) fl MCH 29.4 (26-34) pg MCHC 31.3 L (32-36) g/dl RDW 13.9 (11.5-14.5) % Plt Count 77 L (150-375) k/mm3 MPV 10.9 H (7.4-10.4) fl Immature Gran % (Auto) 0.2 (0-0.5) % Neut % (Auto) 77.6 H (45.5-73.1) % Lymph % (Auto) 13.2 L (18.3-44.2) % [place] % (Auto) 8.1 (2.6-8.5) % Eos % (Auto) 0.7 (0-4.4) % Baso % (Auto) 0.2 (0.2-1.2) % Lymph # (Auto) 0.74 L (0.9-3.2) K/mm3 [place] # (Auto) 0.5 (0.1-0.6) K/mm3 Eos # (Auto) 0.0 (0-0.3) K/mm3 Baso # (Auto) 0.0 (0.0-0.1) K/mm3 Abs Immat Gran (auto) 0.01 (0.00-0.031) K/mm3 Absolute Neuts (auto) 4.3 (1.3-6.7) K/mm3 Absolute Nucleated RBC 0.020 H (0.0-0.012) K/mm3 Nucleated RBC % 0.4 H (0.0-0.2) % Platelet Estimate Decreased (Adequate) % Immature Plt Fraction 7.5 (0.9-11.2) % Hypochromasia 1+ Poikilocytosis 1+ Anisocytosis 1+ Microcytosis 1+ (NORMAL) Ovalocytes 1+ [place] Cells Schistocytes None seen ESR (0-20) mm/hr Absolute Retic (0.02-0.10) 10^6/uL Percent Retic (0.7-4.3) % Immature Retic Fraction (3.0-15.9) % Retic Hgb Content (28.2-36.6) pg Haptoglobin PT (11.1-14.7) Seconds INR APTT (22.3-36.8) Seconds Fibrinogen (215-510) mg/dl D-Dimer (<0.48) ug/mL [id number] Activity [id number] Activity Intrp Sodium 146 H (137-145) mmol/L Potassium 3.6 (3.4-5.0) mmol/L Chloride 115 H (98-107) mmol/L Carbon Dioxide 25 (22-30) mmol/L Anion Gap 6 (4-12) mmol/L BUN 29 H (7-17) mg/dL Creatinine 0.80 (0.7-1.0) mg/dL Estim Creat Clear Calc 40 Estimated GFR > 60 (59 - ) Glucose 96 (65-110) mg/dL POC Capillary Glucose 117 H 93 (65-105) mg/dl Lactic Acid (0.7-2.0) mmol/L Calcium 8.5 (8.4-10.2) mg/dL Magnesium 1.8 (1.6-2.3) mg/dL Iron (37-170) ug/dL TIBC (261-462) ug/dL % Saturation (20-50) % Ferritin (11.1-264) ng/mL Total Bilirubin 1.2 (0.2-1.3) mg/dL AST 187 H (14-36) U/L ALT 186 H (6-35) U/L Alkaline Phosphatase 119 (38-126) U/L Ammonia (9-30) umol/L Lactate Dehydrogenase (120-246) U/L Total Creatine Kinase 296 H (30-135) U/L Troponin I (0.000-0.034) ng/mL C-Reactive Protein (<1.0) mg/dL NT-Pro-B Natriuret Pep (19.9-100) pg/mL Total Protein 6.0 L (6.3-8.2) g/dL Albumin 2.9 L (3.5-5.1) g/dL Vitamin B12 (239-931) pg/mL Folate (2.76->20) ng/mL TSH (0.465-4.680) uIU/mL TSH (Reflex) (0.465-4.68) uIU/mL Free T4 (0.78-2.19) ng/mL Free T3 pg/mL Total T3 (0.97-1.69) NG/ML Urine Color (Yellow) Urine Appearance (Clear) Urine pH (5.0-9.0) Ur Specific [place] (1.001-1.035) Urine Protein (Negative) mg/dL Urine Glucose (UA) (Negative) mg/dL Urine Ketones (Negative) mg/dL Ur Blood (Man) (Negative) Urine Nitrate (Negative) Urine Bilirubin (Negative) Urine Urobilinogen (<2.0) mg/dL Leukocyte Esterase Rfl (Negative) SHAMEKA/UL Urine RBC (0-2) /hpf Urine WBC (0-3) /hpf Ur Squamous Epith Cells (Few) /hpf Urine Bacteria /hpf Urine Casts Nasal MRSA (PCR) (NOT DETECTE) Salicylates (2-20) mg/dL Urine Opiates Screen (Negative) Urine Methadone Screen (Negative) Acetaminophen (10-30) ug/mL Ur Barbiturates Screen (Negative) Ur Phencyclidine Scrn (Negative) Ur Amphetamine Screen (Negative) U Benzodiazepines Scrn (Negative) Urine Cocaine Screen (Negative) U Cannabinoids Screen (Negative) Hepatitis A IgM Ab (Negative) Hep Bs Antigen (Negative) Hep B Core IgM Ab (Negative) Hepatitis C Ab Screen (Negative) Influenza A (RT-PCR) (Negative) Influenza B (RT-PCR) (Negative) RSV (RT-PCR) (Negative) SARS-CoV-2 RNA (RT-PCR) (Negative) 12/30/23 12/30/23 12/30/23 Range/Units 13:34 16:08 16:12 WBC (4.5-10.0) K/mm3 RBC (4.2-5.4) M/mm3 Hgb (12.0-15.0) g/dL Hct (37.0-47.0) % MCV (80-100) fl MCH (26-34) pg MCHC (32-36) g/dl RDW (11.5-14.5) % Plt Count (150-375) k/mm3 MPV (7.4-10.4) fl Immature Gran % (Auto) (0-0.5) % Neut % (Auto) (45.5-73.1) % Lymph % (Auto) (18.3-44.2) % [place] % (Auto) (2.6-8.5) % Eos % (Auto) (0-4.4) % Baso % (Auto) (0.2-1.2) % Lymph # (Auto) (0.9-3.2) K/mm3 [place] # (Auto) (0.1-0.6) K/mm3 Eos # (Auto) (0-0.3) K/mm3 Baso # (Auto) (0.0-0.1) K/mm3 Abs Immat Gran (auto) (0.00-0.031) K/mm3 Absolute Neuts (auto) (1.3-6.7) K/mm3 Absolute Nucleated RBC (0.0-0.012) K/mm3 Nucleated RBC % (0.0-0.2) % Platelet Estimate (Adequate) % Immature Plt Fraction (0.9-11.2) % Hypochromasia Poikilocytosis Anisocytosis Microcytosis (NORMAL) Ovalocytes [place] Cells Schistocytes ESR (0-20) mm/hr Absolute Retic (0.02-0.10) 10^6/uL Percent Retic (0.7-4.3) % Immature Retic Fraction (3.0-15.9) % Retic Hgb Content (28.2-36.6) pg Haptoglobin PT (11.1-14.7) Seconds INR APTT (22.3-36.8) Seconds Fibrinogen (215-510) mg/dl D-Dimer (<0.48) ug/mL [id number] Activity [id number] Activity Intrp Sodium 146 H (137-145) mmol/L Potassium 3.3 L (3.4-5.0) mmol/L Chloride 114 H (98-107) mmol/L Carbon Dioxide 23 (22-30) mmol/L Anion Gap 9 (4-12) mmol/L BUN 25 H (7-17) mg/dL Creatinine 0.80 (0.7-1.0) mg/dL Estim Creat Clear Calc 40 Estimated GFR > 60 (59 - ) Glucose 86 (65-110) mg/dL POC Capillary Glucose 82 82 (65-105) mg/dl Lactic Acid (0.7-2.0) mmol/L Calcium 8.9 (8.4-10.2) mg/dL Magnesium (1.6-2.3) mg/dL Iron (37-170) ug/dL TIBC (261-462) ug/dL % Saturation (20-50) % Ferritin (11.1-264) ng/mL Total Bilirubin (0.2-1.3) mg/dL AST (14-36) U/L ALT (6-35) U/L Alkaline Phosphatase (38-126) U/L Ammonia (9-30) umol/L Lactate Dehydrogenase (120-246) U/L Total Creatine Kinase (30-135) U/L Troponin I (0.000-0.034) ng/mL C-Reactive Protein (<1.0) mg/dL NT-Pro-B Natriuret Pep (19.9-100) pg/mL Total Protein (6.3-8.2) g/dL Albumin (3.5-5.1) g/dL Vitamin B12 (239-931) pg/mL Folate (2.76->20) ng/mL TSH (0.465-4.680) uIU/mL TSH (Reflex) (0.465-4.68) uIU/mL Free T4 (0.78-2.19) ng/mL Free T3 pg/mL Total T3 (0.97-1.69) NG/ML Urine Color (Yellow) Urine Appearance (Clear) Urine pH (5.0-9.0) Ur Specific [place] (1.001-1.035) Urine Protein (Negative) mg/dL Urine Glucose (UA) (Negative) mg/dL Urine Ketones (Negative) mg/dL Ur Blood (Man) (Negative) Urine Nitrate (Negative) Urine Bilirubin (Negative) Urine Urobilinogen (<2.0) mg/dL Leukocyte Esterase Rfl (Negative) SHAMEKA/UL Urine RBC (0-2) /hpf Urine WBC (0-3) /hpf Ur Squamous Epith Cells (Few) /hpf Urine Bacteria /hpf Urine Casts Nasal MRSA (PCR) (NOT DETECTE) Salicylates (2-20) mg/dL Urine Opiates Screen (Negative) Urine Methadone Screen (Negative) Acetaminophen (10-30) ug/mL Ur Barbiturates Screen (Negative) Ur Phencyclidine Scrn (Negative) Ur Amphetamine Screen (Negative) U Benzodiazepines Scrn (Negative) Urine Cocaine Screen (Negative) U Cannabinoids Screen (Negative) Hepatitis A IgM Ab (Negative) Hep Bs Antigen (Negative) Hep B Core IgM Ab (Negative) Hepatitis C Ab Screen (Negative) Influenza A (RT-PCR) (Negative) Influenza B (RT-PCR) (Negative) RSV (RT-PCR) (Negative) SARS-CoV-2 RNA (RT-PCR) (Negative) ABG Data ABG results: 12/29/23 12:36 Puncture Site Right radial ABG pH 7.446 ABG pCO2 35.0 ABG pO2 82.4 ABG PO2/FiO2 Ratio 2.75 ABG HCO3 23.6 ABG O2 Saturation 96.6 ABG O2 Content 15.7 L ABG Base Excess -0.1 A-a Gradient 90.4 Oxyhemoglobin 95.2 Total Hemoglobin 11.7 L O2 Delivery Device Nasal cannula O2 Liters/Min 2.5 FiO2 30 Attestation: I personally reviewed and interpreted this ABG as follows: Interpretation: Acute Primary respiratory alkalosis with metabolic acidosis; appropriate compensation Imaging Data Attestation: I personally reviewed and interpreted this imaging study as follows: My impression: Nondescript findings at right lung base Radiologist's impression: Impressions Chest X-Ray 12/29/23 13:16 IMPRESSION: 1. Airspace opacities in right perihilar region and at right lung base, consistent with atelectasis/scarring versus pneumonia. Head CT 12/29/23 13:34 IMPRESSION: 1. Old infarcts involving the left temporal, parietal, and occipital lobes and left insula, right frontal parietal region, and bilateral thalami. 2. Moderate nonspecific cerebral white matter disease, which likely represents chronic small vessel ischemic disease. ECG Data EKG #1: Attestation: I personally reviewed and interpreted this ECG as follows: ECG completion date: 12/29/23 ECG completion time: 13:26 Interpretation: Normal sinus rhythm at a rate of 89 beats per minute. Prolonged HI interval at 223 milliseconds consistent with a first-degree AV block. QRS 112. QT/QTC 356/403. Occasional ectopic complexes. Poor R-wave progression across the precordial leads. No T-wave inversions except those associated with aberrant beats. Discharge Plan Discharge Clinical Impression: Acute kidney injury, Edema due to hypoalbuminemia, Hypoalbuminemia, Transaminitis, Normocytic anemia, Thrombocytopenia, UTI (urinary tract infection), Elevated brain natriuretic peptide (BNP) level, Altered mental status, Cholelithiasis Patient Disposition: Still a Patient Condition: Serious
[2023-12-29 12:26] LABS: Basophils Percent Auto 0.3 % (0.2-1.2); Eosinophils Percent Auto 0.1 % (0-4.4); Hematocrit 33.9 % (37.0-47.0); Hemoglobin 10.8 g/dL (12.0-15.0); Immature Granulocyte Absolute 0.03 K/mm3 (0.00-0.031); Immature Granulocyte Percent A 0.3 % (0-0.5); Immature Platelet Fraction Pct 7.2 % (0.9-11.2); Lymphocytes Absolute Auto 0.54 K/mm3 (0.9-3.2); Lymphocytes Percent Auto 5.8 % (18.3-44.2); Mean Corpuscular HGB Conc 31.9 g/dl (32-36); Mean Corpuscular Hemoglobin 29.6 pg (26-34); Mean Corpuscular Volume 92.9 fl (80-100); Mean Platelet Volume 11.3 fl (7.4-10.4); Monocytes Absolute Auto 0.5 K/mm3 (0.1-0.6); Monocytes Percent Auto 5.7 % (2.6-8.5); Neutrophils Absolute Auto 8.2 K/mm3 (1.3-6.7); Neutrophils Percent Auto 87.8 % (45.5-73.1); Nucleated Red Blood Cells Perc 0.3 % (0.0-0.2); Platelet Count Result 87 k/mm3 (150-375); Red Blood Count 3.65 M/mm3 (4.2-5.4); Red Cell Distribution Width 14.1 % (11.5-14.5); White Blood Count 9.4 K/mm3 (4.5-10.0)
[2023-12-29 12:34] LABS: Alanine Aminotransferase 230 U/L (6-35); Albumin Level 3.3 g/dL (3.5-5.1); Alkaline Phosphatase 150 U/L (38-126); Anion Gap 13 mmol/L (4-12); Aspartate Amino Transferase 246 U/L (14-36); Bilirubin,Total 1.1 mg/dL (0.2-1.3); Blood Urea Nitrogen 37 mg/dL (7-17); Calcium 9.2 mg/dL (8.4-10.2); Carbon Dioxide 21 mmol/L (22-30); Chloride 109 mmol/L (98-107); Estimated Glomerular Filt Rate 58; Glucose 62 mg/dL (65-110); Potassium 3.5 mmol/L (3.4-5.0); Sodium 143 mmol/L (137-145)
[2023-12-29 12:35] LABS: Lactic Acid Reflex 0.6 mmol/L (0.7-2.0)
[2023-12-29 12:44] LABS: INR 1.1; Prothrombin Time 14.8 Seconds (11.1-14.7)
[2023-12-29 12:45] LABS: Partial Thromboplastin Time 33.7 Seconds (22.3-36.8)
[2023-12-29 12:48] LABS: Alveolar/Arterial O2 Gradient 90.4 mmHg; Base Excess ABG -0.1 mEq/l (+/-2.0); Device NASAL CANNULA; Fractional Inspired Oxygen 30 %; HCO3 ABG 23.6 mEq/l (22.0-26.0); Liters per Minute 2.5 LPM; Modified Allen's Test Pass; Oxygen Content ABG 15.7 %vol (16.0-22.0); Oxygen Saturation ABG 96.6 % (95.0-100.0); Oxyhemoglobin 95.2 % THb (90.0-100.0); PO2 ABG 82.4 mmHg (80.0-100.0); PO2 FiO2 Ratio Arterial Blood 2.75 %; Site Drawn RIGHT RADIAL; Total Hemoglobin 11.7 g/dL (12.0-18.0); pH ABG 7.446 (7.350-7.450)
[2023-12-29 13:14] LABS: Acetaminophen < 10 ug/mL (10-30); Salicylate < 1.0 mg/dL (2-20)
[2023-12-29 13:21] LABS: Troponin I 0.019 ng/mL (0.000-0.034)
[2023-12-29 13:30] LABS: CRP 0.6 mg/dL (<1.0)
[2023-12-29] MEDS: SODIUM CHLORIDE 0.9% IV 1,000 ML 999 ML IV CONT (13:35)
[2023-12-29] MEDS: ACETAMINOPHEN 650 MG SUPPOSITORY RECTAL (13:36)
[2023-12-29 13:46] LABS: Platelet Estimate Decreased (Adequate)
[2023-12-29 13:47] LABS: Anisocytosis 1+; Burr Cells 1+; Hypochromasia 1+; Microcytosis 1+ (NORMAL)
[2023-12-29 13:48] LABS: Ovalocytes 1+; Schistocytes None Seen
[2023-12-29 13:51] LABS: Fibrinogen 436 mg/dl (215-510)
[2023-12-29 13:54] LABS: Immature Reticulocyte Fraction 8.6 % (3.0-15.9); Reticulocyte Hemoglobin Conten 33.6 pg (28.2-36.6); Reticulocyte Percent 0.64 % (0.7-4.3); Reticulocytes Absolute 0.02 10^6/uL (0.02-0.10)
[2023-12-29 13:59] LABS: Magnesium 1.8 mg/dL (1.6-2.3)
[2023-12-29 14:00] LABS: Lactate Dehydrogenase 247 U/L (120-246)
[2023-12-29 14:01] LABS: D Dimer 0.73 ug/mL (<0.48)
[2023-12-29 14:06] LABS: NT Pro B Type Natriuretic Pept 1040 pg/mL (19.9-100)
[2023-12-29 14:14] LABS: Add Urine Microscopic? YES; Appearance Urine Clear (Clear); Bacteria Urine None Seen /hpf; Bilirubin Urine Negative (Negative); Blood Urine 2+ (Negative); Color Urine Yellow (Yellow); Glucose Urine UA Negative (Negative); Ketones Urine 2+ mg/dL (Negative); Leukocyte Esterase Ur 2+ LEU/UL (Negative); Nitrate Urine Negative (Negative); Non Pathogenic Casts 0-2; Protein Urine Trace mg/dL (Negative); RBC Urine 0-2 /hpf (0-2); Specific Grav Ur 1.021 (1.001-1.035); Squamous Epithelial Cell Urine None Seen /hpf (Few); Urobilinogen Urine 0.2 mg/dL (<2.0); WBC Urine 21-50 /hpf (0-3); pH Urine 5.5 (5.0-9.0)
[2023-12-29 14:28] LABS: Amphetamine Screen Urine Negative (Negative); Barbiturate Screen Urine Negative (Negative); Benzodiazepines Screen Urine Negative (Negative); Cannabinoid Screen Urine Negative (Negative); Cocaine Screen Urine Negative (Negative); Methadone Screen Urine Negative (Negative); Opiate Screen Urine Negative (Negative); Phencyclidine Screen Urine Negative (Negative)
[2023-12-29] MEDS: CEFEPIME 1 GM/NS 50 ML 1 GM/50 ML BAG IVPB (14:31)
[2023-12-29] MEDS: VANCOMYCIN 1,500 MG/NS 500 ML 1,500 MG/500 ML BAG 250 MG IVPB (14:37)
[2023-12-29 14:48] LABS: Influenza A QL RT-PCR Negative (Negative); Influenza B QL RT-PCR Negative (Negative); RSV RNA, RT-PCR Negative (Negative); SARS-CoV-2 RNA PCR Negative (Negative)
[2023-12-29 15:51] LABS: MRSA (PCR) NOT DETECTED (NOT DETECTE)
--- NOTE | 2023-12-29 16:10 | P.HP_ITS ---
H&P: HPI History of Present Illness Date/Time: 12/29/23 16:10 Chief Complaint: Altered mental status. Narrative: This is a 78-year-old female with history of stroke, seizures, dementia, hypertension, and hyperlipidemia who presented to the emergency department via EMS from [facility] in [place] for evaluation of altered mental status. She is not able to provide an accurate history and a majority the following is obtained via a review of her EMR as well as information provided by her family. According to family members she is typically able to hold a conversation but she does have good and bad days with regards to confusion. The last several days she has been essentially babbling and unable to hold conversation. She has not been eating or drinking much either. She was seen in the ED at [facility] several days ago for evaluation and she was diagnosed with urinary tract infection. She has not been taking her antibiotics however as her daughter states ?it seems like she forgot how to swallow.? With further questioning the daughter reports that the patient was recently started on alprazolam and trazodone as she seems to have become increasingly more anxious though it does not sound as though she has had those medications for days either. There have been no reports of fever, cough, vomiting, diarrhea, falls, or focal neurologic changes from baseline. In the ED: Temperature was 100.3? F on arrival. She had 1 blood pressure of 90/77 but the remainder of her blood pressures have been well within normal limits. She is in sinus tachycardia with rates in the 90s to low 100s. Labs are significant for WBC count of 9.4, hemoglobin 10.8, platelet 87, BUN 37, creatinine 1.10, lactic acid 0.6, total bilirubin 1.1, AST 246, ALT 230, alkaline phosphatase 150, CRP 0.6, proBNP 1040. Urinalysis was positive for 2+ ketones, 2+ blood, 2+ leukocyte esterase, 21 to 50 WBC; no bacteria were seen on microscopy. Urine drug screen was negative. She tested negative for influenza, RSV, and COVID. Brain CT showed no acute findings. Chest x-ray showed airspace opacities in the right perihilar region at the right lung base consistent with atelectasis/scarring versus pneumonia. She was given a dose of azithromycin, cefepime, and vancomycin in addition to 1800 mL normal saline bolus and she is being admitted in this setting for further treatment and evaluation. Review of Systems Review of Systems: Unable to be obtained accurately given altered mental status. [facility] Past Medical History Medical History Anemia Anxiety Cerebrovascular accident Chronic indwelling Elias catheter Degenerative disc disease Dementia Hyperlipidemia Hypertension Hypothyroidism Neurogenic bladder Osteoarthritis Seizure disorder Uterine fibroid Surgical History Surgical History (Updated 12/29/23 @ 21:46 by Nadira Wright PA-C) History of section Family History Family History Unknown Unknown family medical history Social History Social History Social History: Code status: Full code. Code status full code per [place] documentation and POLST signed 12/09/20; confirmed by family in conversation 12/29/2023 Smoking status: Never smoker Alcohol intake: never Substance use: never Do You Feel Safe in your Home?: Yes Lack of Transportation: No Lack of Food: Never True Current Housing: I Have Housing Concerned About Future Housing: No Difficulty Paying Gas/Electric Bills: No Difficulty Paying for Meds: No Currently Unemployed: No Education: High School Diploma/GED Difficulty w/ Childcare or Family Care: No Additional living arrangements comments: . Lives at [facility] in [place]. Spiritual care concerns: No Meds Home Medications and Allergies Home Medications Medication Instructions Recorded Confirmed Type acetaminophen 325 mg capsule 650 mg PO ONCE PRN Pain 04/28/22 12/29/23 History (Tylenol) amlodipine 10 mg tablet 10 mg PO DAILY 04/28/22 12/29/23 History atorvastatin 80 mg tablet 80 mg PO HS 04/28/22 12/29/23 History cholecalciferol (vitamin D3) 25 25 mcg PO DAILY 04/28/22 12/29/23 History mcg (1,000 unit) tablet (Vitamin D3) diclofenac sodium 1 % topical gel 2 g topical QID PRN Pain 04/28/22 12/29/23 History doxazosin 2 mg tablet 2 mg PO HS 04/28/22 12/29/23 History ferrous sulfate 325 mg (65 mg 325 mg PO DAILY 04/28/22 12/29/23 History iron) capsule,extended release hydralazine 25 mg tablet 25 mg PO BID 04/28/22 12/29/23 History irbesartan 300 mg tablet (Avapro) 300 mg PO DAILY 04/28/22 12/29/23 History tramadol 50 mg tablet 25 mg PO BID PRN Pain 04/28/22 12/29/23 History trolamine salicylate 10 % topical 1 applic topical TID PRN Pain 04/28/22 12/29/23 History cream Adults Multivitamin 1 tablet PO DAILY 12/29/23 12/29/23 History buspirone 10 mg tablet 10 mg PO TID 12/29/23 12/29/23 History cephalexin 500 mg capsule 500 mg PO Q6H 12/29/23 12/29/23 History levothyroxine 75 mcg tablet 37.5 mcg PO DAILY 12/29/23 12/29/23 History mirtazapine 15 mg tablet 15 mg PO HS 12/29/23 12/29/23 History Allergies Allergy/AdvReac Type Severity Reaction Status Date / Time No Known Allergies Allergy Verified 04/28/22 17:35 Vital Signs Vital Signs - 24 hr 12/29/23 11:34 12/29/23 11:40 12/29/23 11:41 Temperature 100.3 F H Pulse Rate 95 96 Respiratory Rate 22 H Blood Pressure 125/75 Pulse Oximetry 95 96 Oxygen Delivery Nasal Cannula Nasal Cannula Oxygen Flow Rate 2 2 12/29/23 11:45 12/29/23 14:20 12/29/23 12:00 Temperature 99.0 F Pulse Rate 96 92 94 Respiratory Rate 20 21 H 20 Blood Pressure 126/87 90/77 L 127/88 Pulse Oximetry 96 100 98 Oxygen Delivery Oxygen Flow Rate 12/29/23 12:15 12/29/23 12:30 12/29/23 12:46 Temperature Pulse Rate 94 93 91 Respiratory Rate 20 22 H 20 Blood Pressure 105/62 124/69 121/90 Pulse Oximetry 99 98 99 Oxygen Delivery Oxygen Flow Rate 12/29/23 13:30 12/29/23 13:45 12/29/23 14:00 Temperature Pulse Rate 99 89 88 Respiratory Rate 20 20 20 Blood Pressure 118/72 128/73 123/82 Pulse Oximetry 97 100 100 Oxygen Delivery Oxygen Flow Rate 12/29/23 14:55 12/29/23 15:01 12/29/23 15:02 Temperature Pulse Rate 91 79 94 Respiratory Rate 22 H 20 20 Blood Pressure 105/93 H Pulse Oximetry 97 97 98 Oxygen Delivery Oxygen Flow Rate 12/29/23 15:15 12/29/23 15:17 12/29/23 15:30 Temperature Pulse Rate 92 95 112 H Respiratory Rate 20 21 H 17 Blood Pressure 122/98 H Pulse Oximetry 97 97 96 Oxygen Delivery Oxygen Flow Rate 12/29/23 15:31 12/29/23 15:46 12/29/23 14:06 Temperature 99.0 F Pulse Rate 89 92 Respiratory Rate 18 18 Blood Pressure 154/130 H Pulse Oximetry 97 96 Oxygen Delivery Oxygen Flow Rate Exam Narrative: General: Mildly ill-appearing female in the semi-Monreal position in bed. Weight: 62.3 kg. BMI: 25.1. HEENT: Normocephalic, atraumatic. PERRL, EOMI. Sclera anicteric. Dry mucous membranes. Oropharynx not visualized as she would not open her mouth very far for exam. Neck: Supple. No obvious JVD, lymphadenopathy, or thyromegaly. Respiratory: Respirations are nonlabored. Lung sounds are a bit coarse with inspiration at the right base but are otherwise clear to auscultation. Cardiovascular: Regular rate and rhythm with S1-S2. Gastrointestinal: Abdomen is soft, nontender, and nondistended with positive bowel sounds. No obvious organomegaly. No guarding or rebound tenderness. Skin: Warm and dry. Extremities: No cyanosis, clubbing, or significant edema. Radial and pedal pulses intact. Neurological: Alert. She does not answer questions or follow commands but she does track with her eyes. Cranial nerves 2-12 are grossly intact. She babbles but her words are nonsensical. No obvious facial asymmetry. She has chronic left-sided weakness from a prior stroke and is contracted the lower extremities which family members state is baseline. Psychiatric: Pleasantly confused. H&P: Results Labs Labs: Short CBC 12/29/23 Range/Units 12:10 WBC 9.4 (4.5-10.0) K/mm3 Hgb 10.8 L (12.0-15.0) g/dL Hct 33.9 L (37.0-47.0) % Plt Count 87 L (150-375) k/mm3 [facility] 12/29/23 12:10 Sodium 143 Potassium 3.5 Chloride 109 H Carbon Dioxide 21 L BUN 37 H D Creatinine 1.10 H Glucose 62 L Calcium 9.2 Cardiac Enzymes 12/29/23 Range/Units 12:10 Troponin I 0.019 (0.000-0.034) ng/mL Liver Function 12/29/23 Range/Units 12:10 Total Bilirubin 1.1 (0.2-1.3) mg/dL AST 246 H (14-36) U/L ALT 230 H (6-35) U/L Alkaline Phosphatase 150 H (38-126) U/L Albumin 3.3 L (3.5-5.1) g/dL Urine 12/29/23 Range/Units 13:49 Urine Color Yellow (Yellow) Urine Appearance Clear (Clear) Urine pH 5.5 (5.0-9.0) Ur Specific [place] 1.021 (1.001-1.035) Urine Protein Trace (Negative) mg/dL Urine Glucose (UA) Negative (Negative) mg/dL Imaging Chest X-Ray 12/29/23 13:16 IMPRESSION: 1. Airspace opacities in right perihilar region and at right lung base, consistent with atelectasis/scarring versus pneumonia. Head CT 12/29/23 13:34 IMPRESSION: 1. Old infarcts involving the left temporal, parietal, and occipital lobes and left insula, right frontal parietal region, and bilateral thalami. 2. Moderate nonspecific cerebral white matter disease, which likely represents chronic small vessel ischemic disease. Assessment and Plan Assessment and plan (1) Encephalopathy: Code(s): G93.40 - Encephalopathy, unspecified Status: Acute Assessment and Plan: Etiology is not entirely clear; consider infection (UTI), medication-related (alprazolam and trazodone), dehydration, stroke, other. Continue empiric antibiotics and IV fluid rehydration. Urine drug screen is negative; hold alprazolam and trazodone. Check TSH, B12, and ammonia rule out other causes. Consider brain MRI if no improvement tomorrow. (2) Recent urinary tract infection: Code(s): Z87.440 - Personal history of urinary (tract) infections Status: Acute Assessment and Plan: Continue ceftriaxone pending urine culture. Records request from [facility] from recent ED visit. (3) Hypoxia: Code(s): R09.02 - Hypoxemia Status: Acute Assessment and Plan: Chest x-ray shows airspace opacities the right perihilar region and at the right lung base. Currently on 2 L nasal cannula with an SpO2 of 100%; wean oxygen as tolerated. Add azithromycin to ceftriaxone to cover possible underlying pneumonia. Modified barium swallow study ordered given daughters concerns that she ?forgot how to swallow.? (4) Acute kidney injury: Code(s): N17.9 - Acute kidney failure, unspecified Status: Acute Assessment and Plan: She has not had labs done at this facility for over 1.5 years but at that time her creatinine was 0.50. Creatinine today is 1.10 and is most likely related to dehydration given poor oral intake the last several days. Continue IV fluid rehydration overnight with repeat renal function in a.m. (5) Thrombocytopenia: Code(s): D69.6 - Thrombocytopenia, unspecified Status: Acute Assessment and Plan: Platelets have been low before but she is currently 87,000 today. No recent heparin to family's knowledge. (6) Transaminitis: Code(s): R74.01 - Elevation of levels of liver transaminase levels Status: Acute Assessment and Plan: AST and ALT are elevated with normal total bilirubin and alkaline phosphatase. Abdominal exam is benign and right upper quadrant ultrasound did not show any acute findings but did note cholelithiasis. Check CK and hepatitis panel and monitor closely for now. Hold statin. (7) Hypertension: Code(s): I10 - Essential (primary) hypertension Status: Acute Assessment and Plan: Blood pressures were reviewed and she has had some readings at the low end of normal. Antihypertensives will be reviewed and resumed as appropriate. Plan The patient has been admitted under observation status. Quality VTE Prophylaxis VTE prophylaxis: mechanical ordered If No VTE Prophylaxis Answer both mechanical and pharmacologic: Reason no pharmacologic proph: medical contraindication thrombocytopenia Hospitalist [facility] Advance Care Plan I have confirmed that the patient's Advanced Care Plan is present, code status is documented, or surrogate decision maker is listed in patient medical record.: Yes Medication Reconciliation I have utilized all available resources to obtain, update and review the patients current medications (includes all prescriptions, OTC, herbals, cannabis, and nutritional supplements).: Yes
--- NOTE | 2023-12-29 16:30 | ADMGEN ---
This patient, Jeane Villagomez, was admitted to Medical Room 250-01. Patient/family oriented to hospital policies and general routines including ID bracelet, bed and alarms, visiting hours, pain management, procedures, bathroom and other care routines, personal items, smoking policy, room service/diet, and visiting hours. Information on how to activate the Rapid Response Team has been discussed. Patient/Family are encouraged to report perceived risks to care and to ask questions if they do not understand what they are told or what they should do.
[2023-12-29 16:35] LABS: Thyroid Stimulating Hormone 0.249 uIU/mL (0.465-4.680)
[2023-12-29 17:22] LABS: Glucose Point of Care 73 mg/dl (65-105)
[2023-12-29 17:24] LABS: Ammonia < 9 umol/L (9-30); Creatine Kinase 313 U/L (30-135)
[2023-12-29] MEDS: AZITHROMYCIN 500 MG/NS 250 ML 500 MG/250 ML BAG 250 MG IVPB (17:30)
[2023-12-29] MEDS: DEXTROSE 5%/0.9% SOD CHL 1,000 ML 100 ML IV CONT (17:30)
[2023-12-29 17:38] LABS: Iron 70 ug/dL (37-170)
[2023-12-29 17:48] LABS: Percent Iron Saturation 29 % (20-50); TOTAL IRON BINDING CAPACITY 245 ug/dL (261-462)
[2023-12-29 17:55] LABS: Erythrocyte Sedimentation Rate 134 mm/hr (0-20); Free T4 Free Thyroxine 1.53 ng/mL (0.78-2.19)
[2023-12-29 18:32] LABS: Folic Acid > 20.0 ng/mL (2.76->20); Vitamin B12 > 1000.0 pg/mL (239-931)
[2023-12-29 21:28] LABS: Free T4 Free Thyroxine Reflex 1.37 ng/dL (0.78-2.19)
[2023-12-29 22:01] LABS: Glucose Point of Care 113 mg/dl (65-105)
[2023-12-30] VITALS (10 sets, daily range): BP systolic 100–124; BP diastolic 58–70; PULSE 71–85; RESP 16–18; TEMP 36.1–36.7; O2SAT 93–98
[2023-12-30 00:26] LABS: Glucose Point of Care 117 mg/dl (65-105)
[2023-12-30 05:02] LABS: Basophils Percent Auto 0.2 % (0.2-1.2); Eosinophils Percent Auto 0.7 % (0-4.4); Hematocrit 29.1 % (37.0-47.0); Hemoglobin 9.1 g/dL (12.0-15.0); Immature Granulocyte Absolute 0.01 K/mm3 (0.00-0.031); Immature Granulocyte Percent A 0.2 % (0-0.5); Immature Platelet Fraction Pct 7.5 % (0.9-11.2); Lymphocytes Absolute Auto 0.74 K/mm3 (0.9-3.2); Lymphocytes Percent Auto 13.2 % (18.3-44.2); Mean Corpuscular HGB Conc 31.3 g/dl (32-36); Mean Corpuscular Hemoglobin 29.4 pg (26-34); Mean Corpuscular Volume 93.9 fl (80-100); Mean Platelet Volume 10.9 fl (7.4-10.4); Monocytes Absolute Auto 0.5 K/mm3 (0.1-0.6); Monocytes Percent Auto 8.1 % (2.6-8.5); Neutrophils Absolute Auto 4.3 K/mm3 (1.3-6.7); Neutrophils Percent Auto 77.6 % (45.5-73.1); Nucleated Red Blood Cells Perc 0.4 % (0.0-0.2); Red Cell Distribution Width 13.9 % (11.5-14.5); White Blood Count 5.6 K/mm3 (4.5-10.0)
[2023-12-30 05:17] LABS: Glucose Point of Care 93 mg/dl (65-105)
[2023-12-30 05:27] LABS: Alanine Aminotransferase 186 U/L (6-35); Albumin Level 2.9 g/dL (3.5-5.1); Alkaline Phosphatase 119 U/L (38-126); Anion Gap 6 mmol/L (4-12); Aspartate Amino Transferase 187 U/L (14-36); Bilirubin,Total 1.2 mg/dL (0.2-1.3); Blood Urea Nitrogen 29 mg/dL (7-17); Calcium 8.5 mg/dL (8.4-10.2); Carbon Dioxide 25 mmol/L (22-30); Chloride 115 mmol/L (98-107); Creatine Kinase 296 U/L (30-135); Estimated CRCL calculation 40 ml/min; Estimated Glomerular Filt Rate > 60; Glucose 96 mg/dL (65-110); Magnesium 1.8 mg/dL (1.6-2.3); Potassium 3.6 mmol/L (3.4-5.0); Sodium 146 mmol/L (137-145)
[2023-12-30 05:28] LABS: Platelet Count Result 77 k/mm3 (150-375)
[2023-12-30 05:30] LABS: Platelet Estimate Decreased (Adequate)
[2023-12-30 05:31] LABS: Anisocytosis 1+; Hypochromasia 1+; Microcytosis 1+ (NORMAL); Ovalocytes 1+; Poikilocytosis 1+; Schistocytes None Seen
--- NOTE | 2023-12-30 06:56 | PM.IMPN ---
Progress Note: A&P Assessment and Plan (1) Encephalopathy: Code(s): G93.40 - Encephalopathy, unspecified Status: Acute Assessment and Plan: Etiology is not entirely clear; consider infection (UTI), medication-related (alprazolam and trazodone), dehydration, stroke, other. Continue empiric antibiotics and IV fluid rehydration. Urine drug screen is negative; hold alprazolam and trazodone. Check TSH, B12, and ammonia rule out other causes. Brain MRI ordered and pending (2) Recent urinary tract infection: Code(s): Z87.440 - Personal history of urinary (tract) infections Status: Acute Assessment and Plan: Continue ceftriaxone pending urine culture. Records request from [facility] from recent ED visit. (3) Hypoxia: Code(s): R09.02 - Hypoxemia Status: Acute Assessment and Plan: Chest x-ray shows airspace opacities the right perihilar region and at the right lung base. Currently on 2 L nasal cannula with an SpO2 of 100%; wean oxygen as tolerated. Add azithromycin to ceftriaxone to cover possible underlying pneumonia. Modified barium swallow study ordered given daughters concerns that she ?forgot how to swallow.? MRSA negative, d/c'd vancomycin (4) Acute kidney injury: Code(s): N17.9 - Acute kidney failure, unspecified Status: Acute Assessment and Plan: She has not had labs done at this facility for over 1.5 years but at that time her creatinine was 0.50. Creatinine POA was 1.10 and is most likely related to dehydration given poor oral intake the last several days. Cr improved with IV fluids (5) Thrombocytopenia: Code(s): D69.6 - Thrombocytopenia, unspecified Status: Acute Assessment and Plan: Platelets have been low before but she is currently 87,000 today. No recent heparin to family's knowledge. [id number] pending Haptoglobin pending (6) Transaminitis: Code(s): R74.01 - Elevation of levels of liver transaminase levels Status: Acute Assessment and Plan: AST and ALT are elevated with normal total bilirubin and alkaline phosphatase. Liver enzymes are downtrending after IV fluids. Possible shock from dehydration, hypotension prior to admission? Abdominal exam is benign and right upper quadrant ultrasound did not show any acute findings but did note cholelithiasis. Check CK and hepatitis panel and monitor closely for now. Hold statin. (7) Hypertension: Code(s): I10 - Essential (primary) hypertension Status: Acute Assessment and Plan: Blood pressures were reviewed and she has had some readings at the low end of normal. Antihypertensives will be reviewed and resumed as appropriate. Plan DVT prophylaxis: SCD GI prophylaxis: N/A Glycemic control: hypoglycemia protocol ordered Code Status: Full code Disposition: 78 year old female who [facility] with concerns for worsening mental status with poor oral intake. Imaging is concerning for possible pneumonia. She was recently treated for a UTI at [facility] ED. She was started on IV antibiotics and admitted for further observation. Anticipate return to previous penitentiary at discharge. Medication reconciliation obtained via the following: Nurse completed on admission The file time of this note does not necessarily represent the time the patient was seen. Advance Care Plan I have confirmed that the patient's Advanced Care Plan is present, code status is documented, or surrogate decision maker is listed in patient medical record.: Yes Medication Reconciliation I have utilized all available resources to obtain, update and review the patients current medications (includes all prescriptions, OTC, herbals, cannabis, and nutritional supplements).: Yes Subjective Date/time seen: 12/30/23 06:56 Interval history: This is a 78-year-old female with history of stroke, seizures, dementia, hypertension, and hyperlipidemia who presented to the emergency department via EMS from [facility] in [place] for evaluation of altered mental status. 12/29: Patient is alert and talking to herself on high arrived at the bedside. She acknowledges me but she is difficult to understand as she is missing her teeth and she has garbled speech. When I ask her if she is short of breath I am able to understand that she says no and that she just wants to go home. Her lips are dry and cracked and mucous membranes tacky. There were concerns that she has been aspirating. Review of Systems Review of Systems: Unable to be obtained accurately given altered mental status. Exam Narrative: General: well appearing, appears stated age. HEENT: normocephalic, atraumatic. Mucous membranes moist. EOMI, PERRLA, bilateral sclera anicteric, no conjunctival injection. Neck supple without JVD, lymphadenopathy, or bruit. Respiratory: clear to auscultation bilaterally. No rales/rhonic/wheezes. Cardiovascular: Regular rate and rhythm, normal S1-S2 upon auscultation. No murmurs, rubs, or clicks. PMI is nondisplaced, capillary refill less than 3 second. Abdomen: Soft, round, no pulsatile masses, nondistended and nontender. No rebound, no guarding. No CVA tenderness, no hepatosplenomegaly. Bowel sounds present to all four quadrants. No high pitch or tinkling sounds, resonant to percussion. Extremities: No cyanosis, clubbing, or edema present. Pulses are palpable 2/2. Active ROM to all four extremities. Neuro: Alert and orientated x 4. PERRLA. Cranial nerves 2-12 intact without focal deficit. Skin: Warm, dry, and intact, without rash, erythema, or lesion. Lines: Incisions: Psych: pleasant, cooperative, normal speech, normal affect, no hallucinations, no dysarthria Objective Data Vital Signs Vital Signs: Vital Signs - 24 hr 12/29/23 11:34 12/29/23 11:40 12/29/23 11:41 Temperature 100.3 F H Pulse Rate 95 96 Respiratory Rate 22 H Blood Pressure 125/75 Pulse Oximetry 95 96 Oxygen Delivery Nasal Cannula Nasal Cannula Oxygen Flow Rate 2 2 12/29/23 11:45 12/29/23 14:20 12/29/23 12:00 Temperature 99.0 F Pulse Rate 96 92 94 Respiratory Rate 20 21 H 20 Blood Pressure 126/87 90/77 L 127/88 Pulse Oximetry 96 100 98 Oxygen Delivery Oxygen Flow Rate 12/29/23 12:15 12/29/23 12:30 12/29/23 12:46 Temperature Pulse Rate 94 93 91 Respiratory Rate 20 22 H 20 Blood Pressure 105/62 124/69 121/90 Pulse Oximetry 99 98 99 Oxygen Delivery Oxygen Flow Rate 12/29/23 13:30 12/29/23 13:45 12/29/23 14:00 Temperature Pulse Rate 99 89 88 Respiratory Rate 20 20 20 Blood Pressure 118/72 128/73 123/82 Pulse Oximetry 97 100 100 Oxygen Delivery Oxygen Flow Rate 12/29/23 14:55 12/29/23 15:01 12/29/23 15:02 Temperature Pulse Rate 91 79 94 Respiratory Rate 22 H 20 20 Blood Pressure 105/93 H Pulse Oximetry 97 97 98 Oxygen Delivery Oxygen Flow Rate 12/29/23 15:15 12/29/23 15:17 12/29/23 15:30 Temperature Pulse Rate 92 95 112 H Respiratory Rate 20 21 H 17 Blood Pressure 122/98 H Pulse Oximetry 97 97 96 Oxygen Delivery Oxygen Flow Rate 12/29/23 15:31 12/29/23 15:46 12/29/23 14:06 Temperature 99.0 F Pulse Rate 89 92 Respiratory Rate 18 18 Blood Pressure 154/130 H Pulse Oximetry 97 96 Oxygen Delivery Oxygen Flow Rate 12/29/23 16:42 12/29/23 17:21 12/29/23 18:00 Temperature 97.7 F Pulse Rate 88 86 Respiratory Rate 20 18 Blood Pressure 108/72 108/83 Pulse Oximetry 96 100 100 Oxygen Delivery Nasal Cannula Oxygen Flow Rate 2 12/29/23 20:50 12/29/23 21:05 12/30/23 04:58 Temperature 97.9 F 97.7 F Pulse Rate 100 82 Respiratory Rate 16 16 Blood Pressure 101/59 L 124/70 Pulse Oximetry 100 100 96 Oxygen Delivery Nasal Cannula Oxygen Flow Rate 2 12/30/23 00:00 12/30/23 04:00 Temperature Pulse Rate 80 85 Respiratory Rate Blood Pressure Pulse Oximetry Oxygen Delivery Oxygen Flow Rate Intake/Output Intake/Output: Intake & Output 12/27/23 12/28/23 12/29/23 12/30/23 23:59 23:59 23:59 23:59 Intake Total 2550 100 Balance 2550 100 Meds/Results Medications: Active Medications Generic Name Dose Route Start Last Admin Trade Name Freq PRN Reason Stop Dose Admin Acetaminophen 650 mg 12/29/23 15:18 Acetaminophen 325 Mg Tablet PO Q4H PRN Mild Pain (1-3) or Fever Buspirone HCl 10 mg 12/29/23 22:10 12/30/23 04:02 Buspirone Hcl 10 Mg Tablet PO Not Given TID [facility] Dextrose 12.5 gm 12/29/23 17:54 Dextrose 50% 25 Gm/50 Ml Syringe IV PUSH PRN PRN Hypoglycemia Protocol Diclofenac Sodium 1 applic 12/29/23 21:59 Diclofenac Sodium 1% 100 Gm Gel (*Bk) TOPICAL QID PRN ARTHRITIS PAIN Ferrous Sulfate 325 mg 12/30/23 09:00 Ferrous Sulfate [address] PO DAILY TIFFANY Glucagon 1 mg 12/29/23 17:54 Glucagon For Inj 1 Mg Vial IM PRN PRN Hypoglycemia Protocol Glucose 15 gm 12/29/23 17:54 Glucose Oral Gel 15 Gm Of Glucse In 37.5 Gm Tube PO PRN PRN Hypoglycemia Protocol Dextrose 1,000 mls @ 100 mls/hr 12/29/23 17:54 Dextrose 5% 1,000 Ml IVPB PRN PRN Hypoglycemia Protocol Ceftriaxone Sodium 1 gm in 50 mls @ 100 mls/hr 12/29/23 22:10 12/30/23 06:41 Rocephin 1 Gm/Ns 50 Ml IVPB Not Given HS [facility] Azithromycin 500 mg in 250 mls @ 250 mls/hr 12/30/23 18:00 Zithromax IVPB Q24H TIFFANY Vancomycin HCl 1,250 mg in 250 mls @ 166.667 mls/hr 12/30/23 15:00 Vancomycin 1,250 Mg/Ns 250 Ml IVPB Q24H [facility] Levothyroxine Sodium 25 mcg 12/30/23 06:30 12/30/23 06:41 Levothyroxine Sodium 25 Mcg Tablet PO Not Given DAILY@0630 [facility] Levothyroxine Sodium 12.5 mcg 12/30/23 06:30 12/30/23 06:41 Levothyroxine Sodium 12.5 Mcg Tablet PO Not Given DAILY@0630 [facility] Ondansetron HCl 4 mg 12/29/23 15:18 Ondansetron Inj 4 Mg/2 Ml Vial IV PUSH Q4H PRN Nausea Vitamin D 1,000 units 12/30/23 09:00 Cholecalciferol 1,000 Units Tablet PO DAILY TIFFANY Radiology Results: ITS Impressions Chest X-Ray 12/29/23 13:16 IMPRESSION: 1. Airspace opacities in right perihilar region and at right lung base, consistent with atelectasis/scarring versus pneumonia. Head CT 12/29/23 13:34 IMPRESSION: 1. Old infarcts involving the left temporal, parietal, and occipital lobes and left insula, right frontal parietal region, and bilateral thalami. 2. Moderate nonspecific cerebral white matter disease, which likely represents chronic small vessel ischemic disease. Abdomen Ultrasound 12/29/23 16:17 IMPRESSION: 1. Cholelithiasis. No evidence of acute cholecystitis. Labs Labs: Laboratory Results - last 24 hr 12/29/23 12/29/23 12/29/23 12:10 12:11 12:13 WBC 9.4 RBC 3.65 L Hgb 10.8 L Hct 33.9 L MCV 92.9 MCH 29.6 MCHC 31.9 L RDW 14.1 Plt Count 87 L MPV 11.3 H Immature Gran % (Auto) 0.3 Neut % (Auto) 87.8 H Lymph % (Auto) 5.8 L Wilkin % (Auto) 5.7 Eos % (Auto) 0.1 Baso % (Auto) 0.3 Lymph # (Auto) 0.54 L Wilkin # (Auto) 0.5 Eos # (Auto) 0.0 Baso # (Auto) 0.0 Abs Immat Gran (auto) 0.03 Absolute Neuts (auto) 8.2 H Absolute Nucleated RBC 0.030 H Nucleated RBC % 0.3 H Platelet Estimate Decreased % Immature Plt Fraction 7.2 Hypochromasia 1+ Poikilocytosis Anisocytosis 1+ Microcytosis 1+ Ovalocytes 1+ [place]ub[place] Cells 1+ Schistocytes None seen ESR Absolute Retic 0.02 Percent Retic 0.64 L Immature Retic Fraction 8.6 Retic Hgb Content 33.6 PT 14.8 H INR 1.1 APTT 33.7 Fibrinogen 436 D-Dimer 0.73 H Puncture Site ABG pH ABG pCO2 ABG pO2 ABG PO2/FiO2 Ratio ABG HCO3 ABG O2 Saturation ABG O2 Content ABG Base Excess A-a Gradient Oxyhemoglobin Total Hemoglobin O2 Delivery Device O2 Liters/Min FiO2 Sodium 143 Potassium 3.5 Chloride 109 H Carbon Dioxide 21 L Anion Gap 13 H BUN 37 H D Creatinine 1.10 H Estim Creat Clear Calc Not Reportable Estimated GFR 58 L Glucose 62 L POC Capillary Glucose Lactic Acid 0.6 L Calcium 9.2 Magnesium 1.8 Iron TIBC % Saturation Ferritin Total Bilirubin 1.1 AST 246 H ALT 230 H Alkaline Phosphatase 150 H Ammonia Lactate Dehydrogenase 247 H Total Creatine Kinase Troponin I 0.019 C-Reactive Protein 0.6 NT-Pro-B Natriuret Pep 1040 H Total Protein 7.0 Albumin 3.3 L Vitamin B12 Folate TSH TSH (Reflex) Free T4 Total T3 Urine Color Urine Appearance Urine pH Ur Specific [place] Urine Protein Urine Glucose (UA) Urine Ketones Ur Blood (Man) Urine Nitrate Urine Bilirubin Urine Urobilinogen Leukocyte Esterase Rfl Urine RBC Urine WBC Ur Squamous Epith Cells Urine Bacteria Urine Casts Nasal MRSA (PCR) Salicylates < 1.0 L Urine Opiates Screen Urine Methadone Screen Acetaminophen < 10 L Ur Barbiturates Screen Ur Phencyclidine Scrn Ur Amphetamine Screen U Benzodiazepines Scrn Urine Cocaine Screen U Cannabinoids Screen Influenza A (RT-PCR) Influenza B (RT-PCR) RSV (RT-PCR) SARS-CoV-2 RNA (RT-PCR) 12/29/23 12/29/23 12/29/23 12:36 13:48 13:49 WBC RBC Hgb Hct MCV MCH MCHC RDW Plt Count MPV Immature Gran % (Auto) Neut % (Auto) Lymph % (Auto) Wilkin % (Auto) Eos % (Auto) Baso % (Auto) Lymph # (Auto) Wil[place] # (Auto) Eos # (Auto) Baso # (Auto) Abs Immat Gran (auto) Absolute Neuts (auto) Absolute Nucleated RBC Nucleated RBC % Platelet Estimate % Immature Plt Fraction Hypochromasia Poikilocytosis Anisocytosis Microcytosis Ovalocytes [place] Cells Schistocytes ESR Absolute Retic Percent Retic Immature Retic Fraction Retic Hgb Content PT INR APTT Fibrinogen D-Dimer Puncture Site Right radial ABG pH 7.446 ABG pCO2 35.0 ABG pO2 82.4 ABG PO2/FiO2 Ratio 2.75 ABG HCO3 23.6 ABG O2 Saturation 96.6 ABG O2 Content 15.7 L ABG Base Excess -0.1 A-a Gradient 90.4 Oxyhemoglobin 95.2 Total Hemoglobin 11.7 L O2 Delivery Device Nasal cannula O2 Liters/Min 2.5 FiO2 30 Sodium Potassium Chloride Carbon Dioxide Anion Gap BUN Creatinine Estim Creat Clear Calc Estimated GFR Glucose POC Capillary Glucose Lactic Acid Calcium Magnesium Iron TIBC % Saturation Ferritin Total Bilirubin AST ALT Alkaline Phosphatase Ammonia Lactate Dehydrogenase Total Creatine Kinase Troponin I C-Reactive Protein NT-Pro-B Natriuret Pep Total Protein Albumin Vitamin B12 Folate TSH TSH (Reflex) Free T4 Total T3 Urine Color Yellow Urine Appearance Clear Urine pH 5.5 Ur Specific [place] 1.021 Urine Protein Trace Urine Glucose (UA) Negative Urine Ketones 2+ H Ur Blood (Man) 2+ H Urine Nitrate Negative Urine Bilirubin Negative Urine Urobilinogen 0.2 Leukocyte Esterase Rfl 2+ H Urine RBC 0-2 Urine WBC 21-50 H Ur Squamous Epith Cells None seen Urine Bacteria None seen Urine Casts 0-2 Nasal MRSA (PCR) Salicylates Urine Opiates Screen Negative Urine Methadone Screen Negative Acetaminophen Ur Barbiturates Screen Negative Ur Phencyclidine Scrn Negative Ur Amphetamine Screen Negative U Benzodiazepines Scrn Negative Urine Cocaine Screen Negative U Cannabinoids Screen Negative Influenza A (RT-PCR) Negative Influenza B (RT-PCR) Negative RSV (RT-PCR) Negative SARS-CoV-2 RNA (RT-PCR) Negative 12/29/23 12/29/23 12/29/23 14:25 15:49 17:02 WBC RBC Hgb Hct MCV MCH MCHC RDW Plt Count MPV Immature Gran % (Auto) Neut % (Auto) Lymph % (Auto) Wil[place] % (Auto) Eos % (Auto) Baso % (Auto) Lymph # (Auto) [place] # (Auto) Eos # (Auto) Baso # (Auto) Abs Immat Gran (auto) Absolute Neuts (auto) Absolute Nucleated RBC Nucleated RBC % Platelet Estimate % Immature Plt Fraction Hypochromasia Poikilocytosis Anisocytosis Microcytosis Ovalocytes [place] Cells Schistocytes ESR 134 H Absolute Retic Percent Retic Immature Retic Fraction Retic Hgb Content PT INR APTT Fibrinogen D-Dimer Puncture Site ABG pH ABG pCO2 ABG pO2 ABG PO2/FiO2 Ratio ABG HCO3 ABG O2 Saturation ABG O2 Content ABG Base Excess A-a Gradient Oxyhemoglobin Total Hemoglobin O2 Delivery Device O2 Liters/Min FiO2 Sodium Potassium Chloride Carbon Dioxide Anion Gap BUN Creatinine Estim Creat Clear Calc Estimated GFR Glucose POC Capillary Glucose Lactic Acid Calcium Magnesium Iron 70 TIBC 245 L % Saturation 29 Ferritin 279.00 H Total Bilirubin AST ALT Alkaline Phosphatase Ammonia < 9 L Lactate Dehydrogenase Total Creatine Kinase 313 H Troponin I C-Reactive Protein NT-Pro-B Natriuret Pep Total Protein Albumin Vitamin B12 > 1000.0 H Folate > 20.0 H TSH 0.249 L TSH (Reflex) 0.240 L Free T4 1.53 Total T3 Urine Color Urine Appearance Urine pH Ur Specific [place] Urine Protein Urine Glucose (UA) Urine Ketones Ur Blood (Man) Urine Nitrate Urine Bilirubin Urine Urobilinogen Leukocyte Esterase Rfl Urine RBC Urine WBC Ur Squamous Epith Cells Urine Bacteria Urine Casts Nasal MRSA (PCR) Not detected Salicylates Urine Opiates Screen Urine Methadone Screen Acetaminophen Ur Barbiturates Screen Ur Phencyclidine Scrn Ur Amphetamine Screen U Benzodiazepines Scrn Urine Cocaine Screen U Cannabinoids Screen Influenza A (RT-PCR) Influenza B (RT-PCR) RSV (RT-PCR) SARS-CoV-2 RNA (RT-PCR) 12/29/23 12/29/23 12/29/23 17:02 17:16 20:57 WBC RBC Hgb Hct MCV MCH MCHC RDW Plt Count MPV Immature Gran % (Auto) Neut % (Auto) Lymph % (Auto) [place] % (Auto) Eos % (Auto) Baso % (Auto) Lymph # (Auto) [place] # (Auto) Eos # (Auto) Baso # (Auto) Abs Immat Gran (auto) Absolute Neuts (auto) Absolute Nucleated RBC Nucleated RBC % Platelet Estimate % Immature Plt Fraction Hypochromasia Poikilocytosis Anisocytosis Microcytosis Ovalocytes [place]ubia Cells Schistocytes ESR Absolute Retic Percent Retic Immature Retic Fraction Retic Hgb Content PT INR APTT Fibrinogen D-Dimer Puncture Site ABG pH ABG pCO2 ABG pO2 ABG PO2/FiO2 Ratio ABG HCO3 ABG O2 Saturation ABG O2 Content ABG Base Excess A-a Gradient Oxyhemoglobin Total Hemoglobin O2 Delivery Device O2 Liters/Min FiO2 Sodium Potassium Chloride Carbon Dioxide Anion Gap BUN Creatinine Estim Creat Clear Calc Estimated GFR Glucose POC Capillary Glucose 73 113 H Lactic Acid Calcium Magnesium Iron TIBC % Saturation Ferritin Total Bilirubin AST ALT Alkaline Phosphatase Ammonia Lactate Dehydrogenase Total Creatine Kinase Troponin I C-Reactive Protein NT-Pro-B Natriuret Pep Total Protein Albumin Vitamin B12 Folate TSH TSH (Reflex) Free T4 1.37 Total T3 0.60 L Urine Color Urine Appearance Urine pH Ur Specific [place] Urine Protein Urine Glucose (UA) Urine Ketones Ur Blood (Man) Urine Nitrate Urine Bilirubin Urine Urobilinogen Leukocyte Esterase Rfl Urine RBC Urine WBC Ur Squamous Epith Cells Urine Bacteria Urine Casts Nasal MRSA (PCR) Salicylates Urine Opiates Screen Urine Methadone Screen Acetaminophen Ur Barbiturates Screen Ur Phencyclidine Scrn Ur Amphetamine Screen U Benzodiazepines Scrn Urine Cocaine Screen U Cannabinoids Screen Influenza A (RT-PCR) Influenza B (RT-PCR) RSV (RT-PCR) SARS-CoV-2 RNA (RT-PCR) 12/30/23 12/30/23 12/30/23 00:21 04:48 05:11 WBC 5.6 RBC 3.10 L Hgb 9.1 L Hct 29.1 L MCV 93.9 MCH 29.4 MCHC 31.3 L RDW 13.9 Plt Count 77 L MPV 10.9 H Immature Gran % (Auto) 0.2 Neut % (Auto) 77.6 H Lymph % (Auto) 13.2 L [place] % (Auto) 8.1 Eos % (Auto) 0.7 Baso % (Auto) 0.2 Lymph # (Auto) 0.74 L [place] # (Auto) 0.5 Eos # (Auto) 0.0 Baso # (Auto) 0.0 Abs Immat Gran (auto) 0.01 Absolute Neuts (auto) 4.3 Absolute Nucleated RBC 0.020 H Nucleated RBC % 0.4 H Platelet Estimate Decreased % Immature Plt Fraction 7.5 Hypochromasia 1+ Poikilocytosis 1+ Anisocytosis 1+ Microcytosis 1+ Ovalocytes 1+ [place] Cells Schistocytes None seen ESR Absolute Retic Percent Retic Immature Retic Fraction Retic Hgb Content PT INR APTT Fibrinogen D-Dimer Puncture Site ABG pH ABG pCO2 ABG pO2 ABG PO2/FiO2 Ratio ABG HCO3 ABG O2 Saturation ABG O2 Content ABG Base Excess A-a Gradient Oxyhemoglobin Total Hemoglobin O2 Delivery Device O2 Liters/Min FiO2 Sodium 146 H Potassium 3.6 Chloride 115 H Carbon Dioxide 25 Anion Gap 6 BUN 29 H Creatinine 0.80 Estim Creat Clear Calc 40 Estimated GFR > 60 Glucose 96 POC Capillary Glucose 117 H 93 Lactic Acid Calcium 8.5 Magnesium 1.8 Iron TIBC % Saturation Ferritin Total Bilirubin 1.2 AST 187 H ALT 186 H Alkaline Phosphatase 119 Ammonia Lactate Dehydrogenase Total Creatine Kinase 296 H Troponin I C-Reactive Protein NT-Pro-B Natriuret Pep Total Protein 6.0 L Albumin 2.9 L Vitamin B12 Folate TSH TSH (Reflex) Free T4 Total T3 Urine Color Urine Appearance Urine pH Ur Specific [place] Urine Protein Urine Glucose (UA) Urine Ketones Ur Blood (Man) Urine Nitrate Urine Bilirubin Urine Urobilinogen Leukocyte Esterase Rfl Urine RBC Urine WBC Ur Squamous Epith Cells Urine Bacteria Urine Casts Nasal MRSA (PCR) Salicylates Urine Opiates Screen Urine Methadone Screen Acetaminophen Ur Barbiturates Screen Ur Phencyclidine Scrn Ur Amphetamine Screen U Benzodiazepines Scrn Urine Cocaine Screen U Cannabinoids Screen Influenza A (RT-PCR) Influenza B (RT-PCR) RSV (RT-PCR) SARS-CoV-2 RNA (RT-PCR) Quality VTE Prophylaxis VTE prophylaxis: mechanical ordered
[2023-12-30 08:36] LABS: Hepatitis B Surface Antigen Negative (Negative)
[2023-12-30 08:42] LABS: HAV RESULT Negative (Negative); Hepatitis B Core IgM Result Negative (Negative)
[2023-12-30 08:53] LABS: Hepatitis C Virus Antibody Negative (Negative)
[2023-12-30] MEDS: SODIUM CHLORIDE 0.9% IV 250 ML 50 ML IV CONT (10:16)
[2023-12-30 13:38] LABS: Glucose Point of Care 82 mg/dl (65-105)
--- NOTE | 2023-12-30 13:53 | PCSTNOTE ---
Spoke to nsg regarding MBS to be done tomorrow morning. Physician made aware. Pt confused and having trouble with following directions at this time, presumably due to infection.
--- NOTE | 2023-12-30 15:30 | PC.NURSE ---
faxed release of medical records to [facility] for urine culture results
[2023-12-30 16:15] LABS: Glucose Point of Care 82 mg/dl (65-105)
[2023-12-30 16:29] LABS: Anion Gap 9 mmol/L (4-12); Blood Urea Nitrogen 25 mg/dL (7-17); Calcium 8.9 mg/dL (8.4-10.2); Carbon Dioxide 23 mmol/L (22-30); Chloride 114 mmol/L (98-107); Estimated CRCL calculation 40 ml/min; Estimated Glomerular Filt Rate > 60; Glucose 86 mg/dL (65-110); Potassium 3.3 mmol/L (3.4-5.0); Sodium 146 mmol/L (137-145)
[2023-12-30] MEDS: VANCOMYCIN 1,250 MG/NS 250 ML 1,250 MG/250 ML BAG 166.67 MG IVPB (16:40)
[2023-12-30 18:23] LABS: Influenza A QL RT-PCR Negative (Negative); Influenza B QL RT-PCR Negative (Negative); RSV RNA, RT-PCR Negative (Negative); SARS-CoV-2 RNA PCR Negative (Negative)
[2023-12-30] MEDS: AZITHROMYCIN 500 MG/NS 250 ML 500 MG/250 ML BAG 250 MG IVPB (18:29)
[2023-12-30] MEDS: GLUCOSE ORAL GEL 15 GM OF GLUCSE IN 37.5 GM TUBE PO (20:50)
[2023-12-30 21:41] LABS: Glucose Point of Care 77 mg/dl (65-105)
[2023-12-30 22:15] LABS: Glucose Point of Care 92 mg/dl (65-105)
[2023-12-31] VITALS (9 sets, daily range): BP systolic 121–142; BP diastolic 63–75; PULSE 65–76; RESP 14–20; TEMP 36.6–37; O2SAT 98–100
[2023-12-31 00:31] LABS: Glucose Point of Care 92 mg/dl (65-105)
[2023-12-31 05:15] LABS: Basophils Percent Auto 0.2 % (0.2-1.2); Eosinophils Absolute Auto 0.1 K/mm3 (0-0.3); Eosinophils Percent Auto 2.7 % (0-4.4); Hematocrit 29.4 % (37.0-47.0); Hemoglobin 9.1 g/dL (12.0-15.0); Immature Granulocyte Absolute 0.02 K/mm3 (0.00-0.031); Immature Granulocyte Percent A 0.4 % (0-0.5); Immature Platelet Fraction Pct 8.1 % (0.9-11.2); Lymphocytes Absolute Auto 0.75 K/mm3 (0.9-3.2); Lymphocytes Percent Auto 14.5 % (18.3-44.2); Mean Corpuscular Hemoglobin 28.9 pg (26-34); Mean Corpuscular Volume 93.3 fl (80-100); Mean Platelet Volume 10.9 fl (7.4-10.4); Monocytes Absolute Auto 0.4 K/mm3 (0.1-0.6); Monocytes Percent Auto 7.1 % (2.6-8.5); Neutrophils Absolute Auto 3.9 K/mm3 (1.3-6.7); Neutrophils Percent Auto 75.1 % (45.5-73.1); Nucleated Red Blood Cells Perc 0.8 % (0.0-0.2); Platelet Count Result 87 k/mm3 (150-375); Red Blood Count 3.15 M/mm3 (4.2-5.4); White Blood Count 5.2 K/mm3 (4.5-10.0)
[2023-12-31 05:28] LABS: Alanine Aminotransferase 171 U/L (6-35); Albumin Level 3.1 g/dL (3.5-5.1); Alkaline Phosphatase 120 U/L (38-126); Anion Gap 6 mmol/L (4-12); Aspartate Amino Transferase 143 U/L (14-36); Bilirubin,Total 1.1 mg/dL (0.2-1.3); Blood Urea Nitrogen 19 mg/dL (7-17); Carbon Dioxide 25 mmol/L (22-30); Chloride 114 mmol/L (98-107); Estimated CRCL calculation 45 ml/min; Estimated Glomerular Filt Rate > 60; Glucose 84 mg/dL (65-110); Magnesium 1.8 mg/dL (1.6-2.3); Potassium 3.2 mmol/L (3.4-5.0); Sodium 145 mmol/L (137-145)
[2023-12-31 05:47] LABS: Anisocytosis 1+; Hypochromasia 1+; Ovalocytes 1+; Platelet Estimate Decreased (Adequate); Schistocytes None Seen
[2023-12-31 06:35] LABS: Glucose Point of Care 75 mg/dl (65-105)
[2023-12-31] MEDS: DEXTROSE 50% 25 GM/50 ML SYRINGE IV PUSH (06:51)
--- NOTE | 2023-12-31 07:14 | PM.IMPN ---
Progress Note: A&P Assessment and Plan (1) Encephalopathy: Code(s): G93.40 - Encephalopathy, unspecified Status: Acute Assessment and Plan: Etiology is not entirely clear; consider infection (UTI), medication-related (alprazolam and trazodone), dehydration, stroke, other Continue empiric antibiotics and IV fluid rehydration Urine drug screen is negative; hold alprazolam and trazodone Check TSH, B12, and ammonia rule out other causes Brain MRI shows old infarcts and nonspecific white matter disease Blood cultures are growing GPC in clusters x 2 bottles--staph epidermis in 1 bottle (2) Recent urinary tract infection: Code(s): Z87.440 - Personal history of urinary (tract) infections Status: Acute Assessment and Plan: Continue ceftriaxone Records request from [place] from recent ED visit Urine culture here was negative (3) Hypoxia: Code(s): R09.02 - Hypoxemia Status: Acute Assessment and Plan: Chest x-ray shows airspace opacities the right perihilar region and at the right lung base. Off of oxygen, on room air Add azithromycin to ceftriaxone to cover possible underlying pneumonia. Modified barium swallow study ordered given daughters concerns that she ?forgot how to swallow.? Speech recommended pureed and thin liquids (4) Acute kidney injury: Code(s): N17.9 - Acute kidney failure, unspecified Status: Acute Assessment and Plan: She has not had labs done at this facility for over 1.5 years but at that time her creatinine was 0.50. Creatinine POA was 1.10 and is most likely related to dehydration given poor oral intake the last several days. Cr improved with IV fluids (5) Thrombocytopenia: Code(s): D69.6 - Thrombocytopenia, unspecified Status: Acute Assessment and Plan: Platelets have been low before but she is currently 87,000 today. No recent heparin to family's knowledge. [id number] pending Haptoglobin pending (6) Transaminitis: Code(s): R74.01 - Elevation of levels of liver transaminase levels Status: Acute Assessment and Plan: AST and ALT are elevated with normal total bilirubin and alkaline phosphatase. Liver enzymes are downtrending after IV fluids. Possible shock from dehydration, hypotension prior to admission? Abdominal exam is benign and right upper quadrant ultrasound did not show any acute findings but did note cholelithiasis. Check CK and hepatitis panel and monitor closely for now. Hold statin. (7) Hypertension: Code(s): I10 - Essential (primary) hypertension Status: Acute Assessment and Plan: Blood pressures were reviewed and she has had some readings at the low end of normal. Antihypertensives will be reviewed and resumed as appropriate. Plan DVT prophylaxis: SCD GI prophylaxis: N/A Glycemic control: hypoglycemia protocol ordered Code Status: Full code Disposition: 78 year old female who presents from a [facility] with concerns for worsening mental status with poor oral intake. Imaging is concerning for possible pneumonia. She was recently treated for a UTI at [facility] ED. She was started on IV antibiotics and admitted for further observation. Her mental status is improving with antibiotics. She passed her modified barium swallow with speech recommending pureed and thins. Medication reconciliation obtained via the following: Nurse completed on admission The file time of this note does not necessarily represent the time the patient was seen. Subjective Date/time seen: 12/31/23 07:14 Interval history: This is a 78-year-old female with history of stroke, seizures, dementia, hypertension, and hyperlipidemia who presented to the emergency department via EMS from [facility] in [place] for evaluation of altered mental status. 12/29: Patient is alert and talking to herself on high arrived at the bedside. She acknowledges me but she is difficult to understand as she is missing her teeth and she has garbled speech. When I ask her if she is short of breath I am able to understand that she says no and that she just wants to go home. Her lips are dry and cracked and mucous membranes tacky. There were concerns that she has been aspirating. 12/30: Mrs Villagomez looks better today. She is more alert and is speaking more clearly. She was able to tell the nurse she is at the hospital. Blood cultures are initially growing GPC in clusters, suspect contamination as she has been afebrile. Review of Systems Review of Systems: Unable to be obtained accurately given altered mental status. Exam Narrative: General: elderly, thin, frail, appears stated age. HEENT: normocephalic, atraumatic. Mucous membranes moist. EOMI, PERRLA, bilateral sclera anicteric, no conjunctival injection. Neck supple without JVD, lymphadenopathy, or bruit. Respiratory: clear to auscultation bilaterally. No rales/rhonic/wheezes. Cardiovascular: Regular rate and rhythm, normal S1-S2 upon auscultation. No murmurs, rubs, or clicks. PMI is nondisplaced, capillary refill less than 3 second. Abdomen: Soft, round, no pulsatile masses, nondistended and nontender. No rebound, no guarding. No CVA tenderness, no hepatosplenomegaly. Bowel sounds present to all four quadrants. No high pitch or tinkling sounds, resonant to percussion. Extremities: No cyanosis, clubbing, or edema present. Pulses are palpable 2/2. Active ROM to all four extremities. Neuro: Alert and orientated x 2. PERRLA. Cranial nerves 2-12 intact without focal deficit. Skin: Warm, dry, and intact, without rash, erythema, or lesion. Lines: PIV Incisions: Psych: pleasant, normal speech, no hallucinations, no dysarthria, confusion Objective Data Vital Signs Vital Signs: Vital Signs - 24 hr 12/30/23 08:20 12/30/23 14:00 12/30/23 08:00 Temperature 97.0 F L Pulse Rate 71 75 Respiratory Rate 18 Blood Pressure 116/67 Pulse Oximetry 93 98 Oxygen Delivery Room Air 12/30/23 12:00 12/30/23 10:00 12/30/23 16:00 Temperature Pulse Rate 71 71 Respiratory Rate Blood Pressure Pulse Oximetry Oxygen Delivery Room Air 12/30/23 20:37 12/30/23 20:00 12/30/23 20:00 Temperature 98.0 F Pulse Rate 76 71 Respiratory Rate 16 Blood Pressure 100/58 L Pulse Oximetry 95 Oxygen Delivery Room Air 12/31/23 00:00 12/31/23 04:00 12/31/23 06:21 Temperature 98.6 F Pulse Rate 70 74 73 Respiratory Rate 20 Blood Pressure 142/75 H Pulse Oximetry 98 Oxygen Delivery Intake/Output Intake/Output: Intake & Output 12/28/23 12/29/23 12/30/23 12/31/23 23:59 23:59 23:59 23:59 Intake Total 2550 350 0 Balance 2550 350 0 Meds/Results Medications: Active Medications Generic Name Dose Route Start Last Admin Trade Name Freq PRN Reason Stop Dose Admin Acetaminophen 650 mg 12/29/23 15:18 Acetaminophen 325 Mg Tablet PO Q4H PRN Mild Pain (1-3) or Fever Buspirone HCl 10 mg 12/29/23 22:10 12/30/23 16:40 Buspirone Hcl 10 Mg Tablet PO Not Given TID TIFFANY Dextrose 12.5 gm 12/29/23 17:54 12/31/23 06:51 Dextrose 50% 25 Gm/50 Ml Syringe IV PUSH 12.5 gm PRN PRN Administration Hypoglycemia Protocol Diclofenac Sodium 1 applic 12/29/23 21:59 Diclofenac Sodium 1% 100 Gm Gel (*Bkc) TOPICAL QID PRN ARTHRITIS PAIN Ferrous Sulfate 325 mg 12/30/23 09:00 12/30/23 10:11 Ferrous Sulfate [address] PO Not Given DAILY TIFFANY Glucagon 1 mg 12/29/23 17:54 Glucagon For Inj 1 Mg Vial IM PRN PRN Hypoglycemia Protocol Glucose 15 gm 12/29/23 17:54 12/30/23 20:50 Glucose Oral Gel 15 Gm Of Glucse In 37.5 Gm Tube PO 15 gm PRN PRN Administration Hypoglycemia Protocol Dextrose 1,000 mls @ 100 mls/hr 12/29/23 17:54 Dextrose 5% 1,000 Ml IVPB PRN PRN Hypoglycemia Protocol Ceftriaxone Sodium 1 gm in 50 mls @ 100 mls/hr 12/29/23 22:10 12/30/23 20:50 Rocephin 1 Gm/Ns 50 Ml IVPB 100 mls/hr HS TIFFANY Administration Azithromycin 500 mg in 250 mls @ 250 mls/hr 12/30/23 18:00 12/30/23 18:29 Zithromax IVPB 250 mls/hr Q24H TIFFANY Administration Vancomycin HCl 1,250 mg in 250 mls @ 166.667 mls/hr 12/30/23 15:00 12/30/23 18:10 Vancomycin 1,250 Mg/Ns 250 Ml IVPB Infused Q24H TIFFANY Infusion Dextrose 1,000 mls @ 75 mls/hr 12/31/23 07:00 Dextrose 10% IV CONT .[id number] [facility] Levothyroxine Sodium 25 mcg 12/30/23 06:30 12/31/23 05:53 Levothyroxine Sodium 25 Mcg Tablet PO Not Given DAILY@0630 [facility] Levothyroxine Sodium 12.5 mcg 12/30/23 06:30 12/31/23 05:54 Levothyroxine Sodium 12.5 Mcg Tablet PO Not Given DAILY@0630 [facility] Ondansetron HCl 4 mg 12/29/23 15:18 Ondansetron Inj 4 Mg/2 Ml Vial IV PUSH Q4H PRN Nausea Vitamin D 1,000 units 12/30/23 09:00 12/30/23 10:11 Cholecalciferol 1,000 Units Tablet PO Not Given DAILY [facility] Radiology Results: ITS Impressions Chest X-Ray 12/29/23 13:16 IMPRESSION: 1. Airspace opacities in right perihilar region and at right lung base, consistent with atelectasis/scarring versus pneumonia. Head CT 12/29/23 13:34 IMPRESSION: 1. Old infarcts involving the left temporal, parietal, and occipital lobes and left insula, right frontal parietal region, and bilateral thalami. 2. Moderate nonspecific cerebral white matter disease, which likely represents chronic small vessel ischemic disease. Abdomen Ultrasound 12/29/23 16:17 IMPRESSION: 1. Cholelithiasis. No evidence of acute cholecystitis. Brain MRI 12/30/23 13:02 IMPRESSION: 1. Old infarcts in the brain. 2. Moderate nonspecific cerebral white matter disease, which likely represents chronic small vessel ischemic disease. Labs Labs: Laboratory Results - last 24 hr 12/29/23 12/30/23 12/30/23 17:02 13:34 16:08 WBC RBC Hgb Hct MCV MCH MCHC RDW Plt Count MPV Immature Gran % (Auto) Neut % (Auto) Lymph % (Auto) [place] % (Auto) Eos % (Auto) Baso % (Auto) Lymph # (Auto) [place] # (Auto) Eos # (Auto) Baso # (Auto) Abs Immat Gran (auto) Absolute Neuts (auto) Absolute Nucleated RBC Nucleated RBC % Platelet Estimate % Immature Plt Fraction Hypochromasia Anisocytosis Ovalocytes Schistocytes Sodium 146 H Potassium 3.3 L Chloride 114 H Carbon Dioxide 23 Anion Gap 9 BUN 25 H Creatinine 0.80 Estim Creat Clear Calc 40 Estimated GFR > 60 Glucose 86 POC Capillary Glucose 82 Calcium 8.9 Magnesium Total Bilirubin AST ALT Alkaline Phosphatase Total Protein Albumin Hepatitis A IgM Ab Negative Hep Bs Antigen Negative Hep B Core IgM Ab Negative Hepatitis C Ab Screen Negative Influenza A (RT-PCR) Influenza B (RT-PCR) RSV (RT-PCR) SARS-CoV-2 RNA (RT-PCR) 12/30/23 12/30/23 12/30/23 16:12 17:31 20:40 WBC RBC Hgb Hct MCV MCH MCHC RDW Plt Count MPV Immature Gran % (Auto) Neut % (Auto) Lymph % (Auto) [place] % (Auto) Eos % (Auto) Baso % (Auto) Lymph # (Auto) [place] # (Auto) Eos # (Auto) Baso # (Auto) Abs Immat Gran (auto) Absolute Neuts (auto) Absolute Nucleated RBC Nucleated RBC % Platelet Estimate % Immature Plt Fraction Hypochromasia Anisocytosis Ovalocytes Schistocytes Sodium Potassium Chloride Carbon Dioxide Anion Gap BUN Creatinine Estim Creat Clear Calc Estimated GFR Glucose POC Capillary Glucose 82 77 Calcium Magnesium Total Bilirubin AST ALT Alkaline Phosphatase Total Protein Albumin Hepatitis A IgM Ab Hep Bs Antigen Hep B Core IgM Ab Hepatitis C Ab Screen Influenza A (RT-PCR) Negative Influenza B (RT-PCR) Negative RSV (RT-PCR) Negative SARS-CoV-2 RNA (RT-PCR) Negative 12/30/23 12/31/23 12/31/23 22:11 00:19 05:03 WBC 5.2 RBC 3.15 L Hgb 9.1 L Hct 29.4 L MCV 93.3 MCH 28.9 MCHC 31.0 L RDW 14.0 Plt Count 87 L MPV 10.9 H Immature Gran % (Auto) 0.4 Neut % (Auto) 75.1 H Lymph % (Auto) 14.5 L [place] % (Auto) 7.1 Eos % (Auto) 2.7 Baso % (Auto) 0.2 Lymph # (Auto) 0.75 L [place] # (Auto) 0.4 Eos # (Auto) 0.1 Baso # (Auto) 0.0 Abs Immat Gran (auto) 0.02 Absolute Neuts (auto) 3.9 Absolute Nucleated RBC 0.040 H Nucleated RBC % 0.8 H Platelet Estimate Decreased % Immature Plt Fraction 8.1 Hypochromasia 1+ Anisocytosis 1+ Ovalocytes 1+ Schistocytes None seen Sodium 145 Potassium 3.2 L Chloride 114 H Carbon Dioxide 25 Anion Gap 6 BUN 19 H Creatinine 0.70 Estim Creat Clear Calc 45 Estimated GFR > 60 Glucose 84 POC Capillary Glucose 92 92 Calcium 9.0 Magnesium 1.8 Total Bilirubin 1.1 AST 143 H ALT 171 H Alkaline Phosphatase 120 Total Protein 7.0 Albumin 3.1 L Hepatitis A IgM Ab Hep Bs Antigen Hep B Core IgM Ab Hepatitis C Ab Screen Influenza A (RT-PCR) Influenza B (RT-PCR) RSV (RT-PCR) SARS-CoV-2 RNA (RT-PCR) 12/31/23 06:32 WBC RBC Hgb Hct MCV MCH MCHC RDW Plt Count MPV Immature Gran % (Auto) Neut % (Auto) Lymph % (Auto) [place] % (Auto) Eos % (Auto) Baso % (Auto) Lymph # (Auto) [place] # (Auto) Eos # (Auto) Baso # (Auto) Abs Immat Gran (auto) Absolute Neuts (auto) Absolute Nucleated RBC Nucleated RBC % Platelet Estimate % Immature Plt Fraction Hypochromasia Anisocytosis Ovalocytes Schistocytes Sodium Potassium Chloride Carbon Dioxide Anion Gap BUN Creatinine Estim Creat Clear Calc Estimated GFR Glucose POC Capillary Glucose 75 Calcium Magnesium Total Bilirubin AST ALT Alkaline Phosphatase Total Protein Albumin Hepatitis A IgM Ab Hep Bs Antigen Hep B Core IgM Ab Hepatitis C Ab Screen Influenza A (RT-PCR) Influenza B (RT-PCR) RSV (RT-PCR) SARS-CoV-2 RNA (RT-PCR) Quality VTE Prophylaxis VTE prophylaxis: mechanical ordered
[2023-12-31] MEDS: POTASSIUM CHLORIDE INJ 40 MEQ in SODIUM CHLORIDE 0.9% IV 500 ML 130 MEQ IVPB (07:42)
[2023-12-31 08:16] LABS: Glucose Point of Care 100 mg/dl (65-105)
[2023-12-31 11:50] LABS: Glucose Point of Care 99 mg/dl (65-105)
--- NOTE | 2023-12-31 12:16 | PCSTNOTE ---
Please refer to the Modified Barium Swallow Evaluation in the EMR. The above pleasantly but very confused (edentulous) pt was seen for a modified barium swallow; she was positioned upright with pillows for optimal ability to swallow/decreasing aspiration risk and presented with 5cc thin liquids, pudding in 1 tsp amounts, and small sips via cup and straw. Pt's constant talking through testing interfered with bolus prep and formation. Loss of bolus control, premature spill into the pharynx, and trace generalized residue occurred. During the pharyngeal stage intermittent laryngeal penetration occurred before &/or during the swallow which was felt to be related to the premature spill. The trace oral residual spilled into the pharynx and pooled in the pyriform sinuses. Verbal cues and pressure to dorsum still resulted in a delayed dry swallow which did clear contents. Aspiration did not occur but pt is at risk. Impressions: mild dysphagia Recommendations: pureed diet with thin liquids but the following are recommended in order to prevent aspiration - discourage talking during all oral intake & minimize distractions - small sips and bites - short pause between bites to allow pt time to dry swallow,
[2023-12-31] MEDS: busPIRone HCL 10 MG TABLET PO ×2 (13:05→17:28)
[2023-12-31] MEDS: CHOLECALCIFEROL 1,000 UNITS TABLET 1000 UNITS PO (13:05)
[2023-12-31 15:12] LABS: Vancomycin Trough 5.9 ug/mL (10.0-20.0)
[2023-12-31] MEDS: FERROUS SULFATE LIQUID 325 MG/7.4 ML ELIXIR PO (15:23)
[2023-12-31] MEDS: VANCOMYCIN 1,250 MG/NS 250 ML 1,250 MG/250 ML BAG 166.67 MG IVPB (15:59)
[2023-12-31 17:06] LABS: Glucose Point of Care 113 mg/dl (65-105)
[2023-12-31] MEDS: AMOXICILLIN/CLAVULANATE K 875-125 MG TAB 1 TABLET PO (20:11)
[2023-12-31] MEDS: AZITHROMYCIN 250 MG TABLET 500 MG PO (20:11)
[2023-12-31 21:13] LABS: Glucose Point of Care 103 mg/dl (65-105)
[2024-01-01] VITALS (11 sets, daily range): BP systolic 133–147; BP diastolic 76–91; PULSE 50–75; RESP 14–16; TEMP 36.4–36.8; O2SAT 97–100
[2024-01-01 00:06] LABS: Glucose Point of Care 91 mg/dl (65-105)
[2024-01-01] MEDS: VANCOMYCIN 1,250 MG/NS 250 ML 1,250 MG/250 ML BAG 166.67 MG IVPB (03:19)
[2024-01-01 04:42] LABS: Glucose Point of Care 90 mg/dl (65-105)
[2024-01-01] MEDS: LEVOTHYROXINE SODIUM 12.5 MCG TABLET PO (05:29)
[2024-01-01] MEDS: LEVOTHYROXINE SODIUM 25 MCG TABLET PO (05:29)
[2024-01-01 06:43] LABS: Basophils Percent Auto 0.2 % (0.2-1.2); Eosinophils Absolute Auto 0.2 K/mm3 (0-0.3); Eosinophils Percent Auto 2.8 % (0-4.4); Hematocrit 30.8 % (37.0-47.0); Hemoglobin 9.6 g/dL (12.0-15.0); Immature Granulocyte Absolute 0.02 K/mm3 (0.00-0.031); Immature Granulocyte Percent A 0.3 % (0-0.5); Lymphocytes Absolute Auto 0.83 K/mm3 (0.9-3.2); Lymphocytes Percent Auto 14.3 % (18.3-44.2); Mean Corpuscular HGB Conc 31.2 g/dl (32-36); Mean Corpuscular Hemoglobin 29.5 pg (26-34); Mean Corpuscular Volume 94.8 fl (80-100); Mean Platelet Volume 11.7 fl (7.4-10.4); Monocytes Absolute Auto 0.4 K/mm3 (0.1-0.6); Monocytes Percent Auto 7.2 % (2.6-8.5); Neutrophils Absolute Auto 4.4 K/mm3 (1.3-6.7); Neutrophils Percent Auto 75.2 % (45.5-73.1); Platelet Count Result 99 k/mm3 (150-375); Red Blood Count 3.25 M/mm3 (4.2-5.4); Red Cell Distribution Width 13.7 % (11.5-14.5); White Blood Count 5.8 K/mm3 (4.5-10.0)
[2024-01-01 06:50] LABS: Alanine Aminotransferase 139 U/L (6-35); Albumin Level 3.2 g/dL (3.5-5.1); Alkaline Phosphatase 119 U/L (38-126); Anion Gap 3 mmol/L (4-12); Aspartate Amino Transferase 101 U/L (14-36); Blood Urea Nitrogen 18 mg/dL (7-17); Calcium 9.2 mg/dL (8.4-10.2); Carbon Dioxide 30 mmol/L (22-30); Chloride 111 mmol/L (98-107); Estimated CRCL calculation 45 ml/min; Estimated Glomerular Filt Rate > 60; Glucose 95 mg/dL (65-110); Magnesium 1.8 mg/dL (1.6-2.3); Potassium 3.5 mmol/L (3.4-5.0); Sodium 144 mmol/L (137-145)
--- NOTE | 2024-01-01 07:12 | P.PNIM_ITS ---
Progress Note: A&P Assessment and Plan (1) Encephalopathy: Code(s): G93.40 - Encephalopathy, unspecified Status: Acute Assessment and Plan: Etiology is not entirely clear; consider infection (UTI), medication-related (alprazolam and trazodone), dehydration, stroke, other Continue empiric antibiotics and IV fluid rehydration Urine drug screen is negative; hold alprazolam and trazodone Check TSH, B12, and ammonia rule out other causes Brain MRI shows old infarcts and nonspecific white matter disease Blood cultures are growing GPC in clusters x 2 bottles--staph epidermis in 2 bottles. Initially I thought contamination but given her clinical improvement it may have been a true result. Will discuss de-escalation with ID pharm. Repeat blood cultures ordered today 12/31. If no growth in 24 hours she can d/c back to her [facility]. (2) Recent urinary tract infection: Code(s): Z87.440 - Personal history of urinary (tract) infections Status: Acute Assessment and Plan: Continue ceftriaxone Records request from [facility] from recent ED visit Urine culture here was negative RESOLVED (3) Hypoxia: Code(s): R09.02 - Hypoxemia Status: Acute Assessment and Plan: Chest x-ray shows airspace opacities the right perihilar region and at the right lung base. Off of oxygen, on room air Add azithromycin to ceftriaxone to cover possible underlying pneumonia. Modified barium swallow study ordered given daughters concerns that she ?forgot how to swallow.? Speech recommended pureed and thin liquids RESOLVED (4) Acute kidney injury: Code(s): N17.9 - Acute kidney failure, unspecified Status: Acute Assessment and Plan: She has not had labs done at this facility for over 1.5 years but at that time her creatinine was 0.50. Creatinine POA was 1.10 and is most likely related to dehydration given poor oral intake the last several days. Cr improved with IV fluids RESOLVED (5) Thrombocytopenia: Code(s): D69.6 - Thrombocytopenia, unspecified Status: Acute Assessment and Plan: Platelets have been low before but she is currently 87,000 today. No recent heparin to family's knowledge. [id number] pending Haptoglobin pending Platelet count is improving; 99 today (6) Transaminitis: Code(s): R74.01 - Elevation of levels of liver transaminase levels Status: Acute Assessment and Plan: AST and ALT are elevated with normal total bilirubin and alkaline phosphatase. Liver enzymes are downtrending after IV fluids. Possible shock from dehydration, hypotension prior to admission? Abdominal exam is benign and right upper quadrant ultrasound did not show any acute findings but did note cholelithiasis. Check CK and hepatitis panel and monitor closely for now. Hold statin. (7) Hypertension: Code(s): I10 - Essential (primary) hypertension Status: Acute Assessment and Plan: Blood pressures were reviewed and she has had some readings at the low end of normal. Antihypertensives restarted 12/31, blood pressures reviewed Plan DVT prophylaxis: SCD GI prophylaxis: N/A Glycemic control: hypoglycemia protocol ordered Code Status: Full code Disposition: 78 year old female who presents from a [facility] with concerns for worsening mental status with poor oral intake. Imaging is concerning for possible pneumonia. She was recently treated for a UTI at [facility] ED. She was started on IV antibiotics and admitted for further observation. Her mental status is improving with antibiotics. She passed her modified barium swallow with speech recommending pureed and thins. Repeat blood cultures have been ordered. Medication reconciliation obtained via the following: Nurse completed on admission The file time of this note does not necessarily represent the time the patient was seen. Subjective Date/time seen: 01/01/24 07:12 Interval history: This is a 78-year-old female with history of stroke, seizures, dementia, hypertension, and hyperlipidemia who presented to the emergency department via EMS from [facility] in [place] for evaluation of altered mental status. 12/29: Patient is alert and talking to herself on high arrived at the bedside. She acknowledges me but she is difficult to understand as she is missing her teeth and she has garbled speech. When I ask her if she is short of breath I am able to understand that she says no and that she just wants to go home. Her lips are dry and cracked and mucous membranes tacky. There were concerns that she has been aspirating. 12/30: Mrs Villagomez looks better today. She is more alert and is speaking more clearly. She was able to tell the nurse she is at the hospital. Blood cultures are initially growing GPC in clusters, suspect contamination as she has been afebrile. 12/31: No acute events overnight. She continues to improve. She passed her speech evaluation and is tolerating a diet. She is A&Ox2 today. Review of Systems Review of Systems: All systems reviewed & are unremarkable except as noted in HPI and below Exam Narrative: General: elderly, thin, frail, appears stated age. HEENT: normocephalic, atraumatic. Mucous membranes moist. EOMI, PERRLA, bilateral sclera anicteric, no conjunctival injection. Neck supple without JVD, lymphadenopathy, or bruit. Respiratory: clear to auscultation bilaterally. No rales/rhonic/wheezes. Cardiovascular: Regular rate and rhythm, normal S1-S2 upon auscultation. No murmurs, rubs, or clicks. PMI is nondisplaced, capillary refill less than 3 second. Abdomen: Soft, round, no pulsatile masses, nondistended and nontender. No rebound, no guarding. No CVA tenderness, no hepatosplenomegaly. Bowel sounds present to all four quadrants. No high pitch or tinkling sounds, resonant to percussion. Extremities: No cyanosis, clubbing, or edema present. Pulses are palpable 2/2. Active ROM to all four extremities. Neuro: Alert and orientated x 2. PERRLA. Cranial nerves 2-12 intact without focal deficit. Skin: Warm, dry, and intact, without rash, erythema, or lesion. Lines: PIV Incisions: Psych: pleasant, normal speech, no hallucinations, no dysarthria, confusion Objective Data Vital Signs Vital Signs: Vital Signs - 24 hr 12/31/23 07:40 12/31/23 08:00 12/31/23 12:00 Temperature Pulse Rate 74 65 Respiratory Rate Blood Pressure Pulse Oximetry Oxygen Delivery Room Air 12/31/23 14:00 12/31/23 16:00 12/31/23 20:00 Temperature 97.9 F Pulse Rate 76 70 Respiratory Rate 18 Blood Pressure 136/68 Pulse Oximetry 99 Oxygen Delivery Room Air 12/31/23 20:49 12/31/23 20:00 01/01/24 00:00 Temperature 97.8 F Pulse Rate 69 70 64 Respiratory Rate 14 Blood Pressure 121/63 Pulse Oximetry 100 Oxygen Delivery 01/01/24 04:00 01/01/24 05:31 Temperature 98.0 F Pulse Rate 57 L 58 L Respiratory Rate 16 Blood Pressure 145/79 H Pulse Oximetry 100 Oxygen Delivery Intake/Output Intake/Output: Intake & Output 12/29/23 12/30/23 12/31/23 01/01/24 23:59 23:59 23:59 23:59 Intake Total 2550 350 1070 250 Output Total 400 Balance 2550 350 1070 -150 Meds/Results Medications: Active Medications Generic Name Dose Route Start Last Admin Trade Name Freq PRN Reason Stop Dose Admin Acetaminophen 650 mg 12/29/23 15:18 Acetaminophen 325 Mg Tablet PO Q4H PRN Mild Pain (1-3) or Fever Amoxicillin/Clavulanate Potassium 1 tablet 12/31/23 21:00 12/31/23 20:11 Amoxicillin/Clavulanate K 875-125 Mg Tab PO 01/03/24 09:01 1 tablet Q12HR TIFFANY Administration Azithromycin 500 mg 12/31/23 21:00 12/31/23 20:11 Azithromycin 250 Mg Tablet PO 01/02/24 21:01 500 mg DAILY@2100 TIFFANY Administration Buspirone HCl 10 mg 12/29/23 22:10 12/31/23 17:28 Buspirone Hcl 10 Mg Tablet PO 10 mg TID TIFFANY Administration Dextrose 12.5 gm 12/29/23 17:54 12/31/23 06:51 Dextrose 50% 25 Gm/50 Ml Syringe IV PUSH 12.5 gm PRN PRN Administration Hypoglycemia Protocol Diclofenac Sodium 1 applic 12/29/23 21:59 Diclofenac Sodium 1% 100 Gm Gel (*Bkc) TOPICAL QID PRN ARTHRITIS PAIN Ferrous Sulfate 325 mg 12/31/23 13:10 12/31/23 15:23 Ferrous Sulfate Liquid 325 Mg/7.4 Ml Elixir PO 325 mg QAM TIFFANY Administration Glucagon 1 mg 12/29/23 17:54 Glucagon For Inj 1 Mg Vial IM PRN PRN Hypoglycemia Protocol Glucose 15 gm 12/29/23 17:54 12/30/23 20:50 Glucose Oral Gel 15 Gm Of Glucse In 37.5 Gm Tube PO 15 gm PRN PRN Administration Hypoglycemia Protocol Vancomycin HCl 1,250 mg in 250 mls @ 166.667 mls/hr 12/31/23 16:00 01/01/24 04:49 Vancomycin 1,250 Mg/Ns 250 Ml IVPB Infused Q12H TIFFANY Infusion Levothyroxine Sodium 25 mcg 12/30/23 06:30 01/01/24 05:29 Levothyroxine Sodium 25 Mcg Tablet PO 25 mcg DAILY@0630 TIFFANY Administration Levothyroxine Sodium 12.5 mcg 12/30/23 06:30 01/01/24 05:29 Levothyroxine Sodium 12.5 Mcg Tablet PO 12.5 mcg DAILY@0630 TIFFANY Administration Ondansetron HCl 4 mg 12/29/23 15:18 Ondansetron Inj 4 Mg/2 Ml Vial IV PUSH Q4H PRN Nausea Vitamin D 1,000 units 12/30/23 09:00 12/31/23 13:05 Cholecalciferol 1,000 Units Tablet PO 1,000 units DAILY TIFFANY Administration Radiology Results: ITS Impressions Chest X-Ray 12/29/23 13:16 IMPRESSION: 1. Airspace opacities in right perihilar region and at right lung base, consistent with atelectasis/scarring versus pneumonia. Head CT 12/29/23 13:34 IMPRESSION: 1. Old infarcts involving the left temporal, parietal, and occipital lobes and left insula, right frontal parietal region, and bilateral thalami. 2. Moderate nonspecific cerebral white matter disease, which likely represents chronic small vessel ischemic disease. Abdomen Ultrasound 12/29/23 16:17 IMPRESSION: 1. Cholelithiasis. No evidence of acute cholecystitis. Brain MRI 12/30/23 13:02 IMPRESSION: 1. Old infarcts in the brain. 2. Moderate nonspecific cerebral white matter disease, which likely represents chronic small vessel ischemic disease. Modified Barium Swallow 12/31/23 12:36 IMPRESSION: Oropharyngeal dysphagia with flash laryngeal penetration without aspiration. Please correlate with speech pathologist findings and specific feeding recommendations. Labs Labs: Laboratory Results - last 24 hr 12/29/23 12/31/23 12/31/23 12:10 08:13 11:46 Haptoglobin 208 Sodium Potassium Chloride Carbon Dioxide Anion Gap BUN Creatinine Estim Creat Clear Calc Estimated GFR Glucose POC Capillary Glucose 100 99 Calcium Magnesium Total Bilirubin AST ALT Alkaline Phosphatase Total Protein Albumin Vancomycin Trough 12/31/23 12/31/23 12/31/23 14:09 16:55 20:47 Haptoglobin Sodium Potassium Chloride Carbon Dioxide Anion Gap BUN Creatinine Estim Creat Clear Calc Estimated GFR Glucose POC Capillary Glucose 113 H 103 Calcium Magnesium Total Bilirubin AST ALT Alkaline Phosphatase Total Protein Albumin Vancomycin Trough 5.9 L 01/01/24 01/01/24 01/01/24 00:03 04:39 06:14 Haptoglobin Sodium 144 Potassium 3.5 Chloride 111 H Carbon Dioxide 30 Anion Gap 3 L BUN 18 H Creatinine 0.70 Estim Creat Clear Calc 45 Estimated GFR > 60 Glucose 95 POC Capillary Glucose 91 90 Calcium 9.2 Magnesium 1.8 Total Bilirubin 1.0 AST 101 H ALT 139 H Alkaline Phosphatase 119 Total Protein 7.0 Albumin 3.2 L Vancomycin Trough Quality VTE Prophylaxis VTE prophylaxis: mechanical ordered
[2024-01-01 08:13] LABS: Glucose Point of Care 88 mg/dl (65-105)
[2024-01-01] MEDS: FERROUS SULFATE LIQUID 325 MG/7.4 ML ELIXIR PO (08:18)
[2024-01-01] MEDS: CHOLECALCIFEROL 1,000 UNITS TABLET 1000 UNITS PO (08:18)
[2024-01-01] MEDS: AMOXICILLIN/CLAVULANATE K 875-125 MG TAB 1 TABLET PO ×2 (08:18→20:41)
[2024-01-01] MEDS: busPIRone HCL 10 MG TABLET PO ×3 (08:18→16:16)
[2024-01-01 11:42] LABS: T3 Free 1.5
[2024-01-01] MEDS: MULTIVITAMINS /C LUTEIN (CENTRUM SILVER) TABLET *BKC 1 TAB PO (12:24)
[2024-01-01] MEDS: IRBESARTAN 150 MG TABLET 300 MG PO (12:24)
[2024-01-01] MEDS: amLODIPine BESYLATE 10 MG TABLET PO (12:24)
[2024-01-01] MEDS: hydrALAZINE HCL 25 MG TABLET PO ×2 (12:25→16:16)
[2024-01-01] MEDS: TOLNAFTATE 1% POWDER 45 GM BTL 1 APPLIC TOPICAL ×2 (12:25→20:49)
[2024-01-01] MEDS: ATORVASTATIN 40 MG TABLET 80 MG PO (20:40)
[2024-01-01] MEDS: DOXAZOSIN MESYLATE 2 MG TABLET PO (20:41)
[2024-01-01] MEDS: MIRTAZAPINE 15 MG TABLET PO (20:41)
[2024-01-01] MEDS: AZITHROMYCIN 250 MG TABLET 500 MG PO (20:47)
[2024-01-01] MEDS: SULFAMETHOXAZOLE/TRIMETHOPRIM 800/160 MG DS TABLET 2 TAB PO (20:48)
[2024-01-02] VITALS: PULSE 65
[2024-01-02 04:00] VITALS: PULSE 55
[2024-01-02] MEDS: LEVOTHYROXINE SODIUM 12.5 MCG TABLET PO (04:18)
[2024-01-02] MEDS: LEVOTHYROXINE SODIUM 25 MCG TABLET PO (04:18)
[2024-01-02 05:14] VITALS: BP 134/84; PULSE 95; RESP 20; TEMP 36.6; O2SAT 97
[2024-01-02 06:10] LABS: Basophils Percent Auto 0.5 % (0.2-1.2); Eosinophils Absolute Auto 0.2 K/mm3 (0-0.3); Eosinophils Percent Auto 4.6 % (0-4.4); Hematocrit 30.4 % (37.0-47.0); Hemoglobin 9.5 g/dL (12.0-15.0); Immature Granulocyte Absolute 0.01 K/mm3 (0.00-0.031); Immature Granulocyte Percent A 0.2 % (0-0.5); Immature Platelet Fraction Pct 8.6 % (0.9-11.2); Lymphocytes Absolute Auto 0.78 K/mm3 (0.9-3.2); Mean Corpuscular HGB Conc 31.3 g/dl (32-36); Mean Corpuscular Hemoglobin 29.2 pg (26-34); Mean Corpuscular Volume 93.5 fl (80-100); Mean Platelet Volume 11.7 fl (7.4-10.4); Monocytes Absolute Auto 0.4 K/mm3 (0.1-0.6); Monocytes Percent Auto 8.8 % (2.6-8.5); Neutrophils Percent Auto 67.9 % (45.5-73.1); Nucleated Red Blood Cells Perc 0.7 % (0.0-0.2); Platelet Count Result 118 k/mm3 (150-375); Red Blood Count 3.25 M/mm3 (4.2-5.4); Red Cell Distribution Width 13.6 % (11.5-14.5); White Blood Count 4.3 K/mm3 (4.5-10.0)
[2024-01-02 06:17] LABS: Alanine Aminotransferase 116 U/L (6-35); Albumin Level 3.2 g/dL (3.5-5.1); Alkaline Phosphatase 110 U/L (38-126); Anion Gap 6 mmol/L (4-12); Aspartate Amino Transferase 77 U/L (14-36); Bilirubin,Total 0.9 mg/dL (0.2-1.3); Blood Urea Nitrogen 18 mg/dL (7-17); Calcium 8.9 mg/dL (8.4-10.2); Carbon Dioxide 29 mmol/L (22-30); Chloride 109 mmol/L (98-107); Estimated CRCL calculation 52 ml/min; Estimated Glomerular Filt Rate > 60; Glucose 87 mg/dL (65-110); Magnesium 1.7 mg/dL (1.6-2.3); Potassium 3.3 mmol/L (3.4-5.0); Sodium 144 mmol/L (137-145)
[2024-01-02 08:00] VITALS: PULSE 67
--- NOTE | 2024-01-02 08:16 | P.PNIM_ITS ---
Progress Note: A&P Assessment and Plan (1) Encephalopathy: Code(s): G93.40 - Encephalopathy, unspecified Status: Acute (2) Recent urinary tract infection: Code(s): Z87.440 - Personal history of urinary (tract) infections Status: Acute (3) Hypoxia: Code(s): R09.02 - Hypoxemia Status: Acute (4) Acute kidney injury: Code(s): N17.9 - Acute kidney failure, unspecified Status: Acute (5) Thrombocytopenia: Code(s): D69.6 - Thrombocytopenia, unspecified Status: Acute (6) Transaminitis: Code(s): R74.01 - Elevation of levels of liver transaminase levels Status: Acute (7) Hypertension: Code(s): I10 - Essential (primary) hypertension Status: Acute (8) Bacteremia: Code(s): R78.81 - Bacteremia Status: Acute Plan Bacteremia * Blood cultures are growing GPC in clusters x 2 bottles--staph epidermis in 2 bottles. * Started on Bactrim * Repeat blood cultures ordered today 12/31. If no growth in 24 hours [facility]. Metabolic encephalopathy-Improving * Etiology is not entirely clear; consider infection (UTI), medication-related (alprazolam and trazodone), dehydration, stroke, other * Continue empiric antibiotics and IV fluid rehydration * Urine drug screen is negative; hold alprazolam and trazodone * Check TSH, B12, and ammonia rule out other causes * Brain MRI shows old infarcts and nonspecific white matter disease * Blood cultures are growing GPC in clusters x 2 bottles--staph epidermis in 2 bottles. Initially I thought contamination but given her clinical improvement it may have been a true result. Will discuss de-escalation with ID pharm. * Repeat blood cultures ordered today 12/31. If no growth in 24 hours she can [facility] 01/02/2024: * Acute respiratory failure with hypoxia-Improving * Chest x-ray shows airspace opacities the right perihilar region and at the right lung base. * Off of oxygen, on room air * Add azithromycin to ceftriaxone to cover possible underlying pneumonia. * Modified barium swallow study ordered given daughters concerns that she ?forgot how to swallow.? * Speech recommended pureed and thin liquids Transaminitis-Improving * AST and ALT are elevated with normal total bilirubin and alkaline phosphatase. * Liver enzymes are downtrending after IV fluids. Possible shock from dehydration, hypotension prior to admission? * Abdominal exam is benign and right upper quadrant ultrasound did not show any acute findings but did note cholelithiasis. * Negative CK and hepatitis panel and monitor closely for now. * Hold statin. Subjective Date/time seen: 01/02/24 08:16 Interval history: This is a 78-year-old female with history of stroke, seizures, dementia, hypertension, and hyperlipidemia who presented to the emergency department via EMS from [facility] in [place] for evaluation of altered mental status. 12/29: Patient is alert and talking to herself on high arrived at the bedside. She acknowledges me but she is difficult to understand as she is missing her teeth and she has garbled speech. When I ask her if she is short of breath I am able to understand that she says no and that she just wants to go home. Her lips are dry and cracked and mucous membranes tacky. There were concerns that she has been aspirating. 12/30: Mrs Villagomez looks better today. She is more alert and is speaking more clearly. She was able to tell the nurse she is at the hospital. Blood cultures are initially growing GPC in clusters, suspect contamination as she has been afebrile. 12/31: No acute events overnight. She continues to improve. She passed her speech evaluation and is tolerating a diet. She is A&Ox2 today. 01/01: Assumed Care Review of Systems Review of Systems: All systems reviewed & are unremarkable except as noted in HPI and below Objective Data Vital Signs Vital Signs: Vital Signs - 24 hr 01/01/24 09:50 01/01/24 11:57 01/01/24 12:00 Temperature Pulse Rate 67 62 Respiratory Rate 16 Blood Pressure 147/77 H Pulse Oximetry 98 Oxygen Delivery Room Air 01/01/24 14:00 01/01/24 15:55 01/01/24 16:00 Temperature 97.6 F Pulse Rate 75 69 66 Respiratory Rate 14 16 Blood Pressure 147/91 H 135/83 Pulse Oximetry 99 97 Oxygen Delivery 01/01/24 20:00 01/01/24 21:22 01/01/24 20:00 Temperature 98.3 F Pulse Rate 66 65 69 Respiratory Rate 16 16 Blood Pressure 133/76 Pulse Oximetry 97 98 Oxygen Delivery Room Air 01/02/24 00:00 01/02/24 04:00 01/02/24 05:14 Temperature 97.9 F Pulse Rate 65 55 L 95 Respiratory Rate 20 Blood Pressure 134/84 Pulse Oximetry 97 Oxygen Delivery Intake/Output Intake/Output: Intake & Output 12/30/23 12/31/23 01/01/24 01/02/24 23:59 23:59 23:59 23:59 Intake Total 350 1070 830 220 Output Total 500 1100 Balance 350 1070 330 -880 Meds/Results Medications: Active Medications Generic Name Dose Route Start Last Admin Trade Name Freq PRN Reason Stop Dose Admin Acetaminophen 650 mg 12/29/23 15:18 Acetaminophen 325 Mg Tablet PO Q4H PRN Mild Pain (1-3) or Fever Amlodipine Besylate 10 mg 01/01/24 09:00 01/01/24 12:24 Amlodipine Besylate 10 Mg Tablet PO 10 mg DAILY TIFFANY Administration Amoxicillin/Clavulanate Potassium 1 tablet 12/31/23 21:00 01/01/24 20:41 Amoxicillin/Clavulanate K 875-125 Mg Tab PO 01/03/24 09:01 1 tablet Q12HR TIFFANY Administration Atorvastatin Calcium 80 mg 01/01/24 21:00 01/01/24 20:40 Atorvastatin 40 Mg Tablet PO 80 mg HS TIFFANY Administration Azithromycin 500 mg 12/31/23 21:00 01/01/24 20:47 Azithromycin 250 Mg Tablet PO 01/02/24 21:01 500 mg DAILY@2100 TIFFANY Administration Buspirone HCl 10 mg 12/29/23 22:10 01/01/24 16:16 Buspirone Hcl 10 Mg Tablet PO 10 mg TID TIFFANY Administration Dextrose 12.5 gm 12/29/23 17:54 12/31/23 06:51 Dextrose 50% 25 Gm/50 Ml Syringe IV PUSH 12.5 gm PRN PRN Administration Hypoglycemia Protocol Diclofenac Sodium 1 applic 12/29/23 21:59 Diclofenac Sodium 1% 100 Gm Gel (*Bkc) TOPICAL QID PRN ARTHRITIS PAIN Doxazosin Mesylate 2 mg 01/01/24 21:00 01/01/24 20:41 Doxazosin Mesylate 2 Mg Tablet PO 2 mg HS TIFFANY Administration Ferrous Sulfate 325 mg 12/31/23 13:10 01/01/24 08:18 Ferrous Sulfate Liquid 325 Mg/7.4 Ml Elixir PO 325 mg QAM TIFFANY Administration Glucagon 1 mg 12/29/23 17:54 Glucagon For Inj 1 Mg Vial IM PRN PRN Hypoglycemia Protocol Glucose 15 gm 12/29/23 17:54 12/30/23 20:50 Glucose Oral Gel 15 Gm Of Glucse In 37.5 Gm Tube PO 15 gm PRN PRN Administration Hypoglycemia Protocol Hydralazine HCl 25 mg 01/01/24 09:00 01/01/24 16:16 Hydralazine Hcl 25 Mg Tablet PO 25 mg BID TIFFANY Administration Irbesartan 300 mg 01/01/24 09:00 01/01/24 12:24 Irbesartan 150 Mg Tablet PO 300 mg DAILY TIFFANY Administration Levothyroxine Sodium 25 mcg 12/30/23 06:30 01/02/24 04:18 Levothyroxine Sodium 25 Mcg Tablet PO 25 mcg DAILY@0630 TIFFANY Administration Levothyroxine Sodium 12.5 mcg 12/30/23 06:30 01/02/24 04:18 Levothyroxine Sodium 12.5 Mcg Tablet PO 12.5 mcg DAILY@0630 TIFFANY Administration Mirtazapine 15 mg 01/01/24 21:00 01/01/24 20:41 Mirtazapine 15 Mg Tablet PO 15 mg HS TIFFANY Administration Multivitamins/Minerals 1 tab 01/01/24 09:00 01/01/24 12:24 Multivitamins /C Lutein (Centrum Silver) Tablet *Bkc PO 1 tab QAM TIFFANY Administration Ondansetron HCl 4 mg 12/29/23 15:18 Ondansetron Inj 4 Mg/2 Ml Vial IV PUSH Q4H PRN Nausea Potassium Chloride 40 meq 01/02/24 08:14 Potassium Chloride 20 Meq Packet (For Liquid) PO 01/02/24 08:15 ONCE ONE Tolnaftate 1 applic 01/01/24 11:00 01/01/24 20:49 Tolnaftate 1% Powder 45 Gm Btl TOPICAL 1 applic Q12HR TIFFANY Administration Trimethoprim/Sulfamethoxazole 2 tab 01/01/24 14:00 01/01/24 20:48 Sulfamethoxazole/Trimethoprim 800/160 Mg Ds Tablet PO 01/07/24 21:01 2 tab Q12HR TIFFANY Administration Vitamin D 1,000 units 12/30/23 09:00 01/01/24 08:18 Cholecalciferol 1,000 Units Tablet PO 1,000 units DAILY TIFFANY Administration Radiology Results: ITS Impressions Chest X-Ray 12/29/23 13:16 IMPRESSION: 1. Airspace opacities in right perihilar region and at right lung base, consistent with atelectasis/scarring versus pneumonia. Head CT 12/29/23 13:34 IMPRESSION: 1. Old infarcts involving the left temporal, parietal, and occipital lobes and left insula, right frontal parietal region, and bilateral thalami. 2. Moderate nonspecific cerebral white matter disease, which likely represents chronic small vessel ischemic disease. Abdomen Ultrasound 12/29/23 16:17 IMPRESSION: 1. Cholelithiasis. No evidence of acute cholecystitis. Brain MRI 12/30/23 13:02 IMPRESSION: 1. Old infarcts in the brain. 2. Moderate nonspecific cerebral white matter disease, which likely represents chronic small vessel ischemic disease. Modified Barium Swallow 12/31/23 12:36 IMPRESSION: Oropharyngeal dysphagia with flash laryngeal penetration without aspiration. Please correlate with speech pathologist findings and specific feeding recommendations. Labs Labs: Laboratory Results - last 24 hr 12/29/23 01/01/24 01/02/24 17:02 06:14 05:29 WBC 5.8 4.3 L RBC 3.25 L 3.25 L Hgb 9.6 L 9.5 L Hct 30.8 L 30.4 L MCV 94.8 93.5 MCH 29.5 29.2 MCHC 31.2 L 31.3 L RDW 13.7 13.6 Plt Count 99 L 118 L MPV 11.7 H 11.7 H Immature Gran % (Auto) 0.3 0.2 Neut % (Auto) 75.2 H 67.9 Lymph % (Auto) 14.3 L 18.0 L [place] % (Auto) 7.2 8.8 H Eos % (Auto) 2.8 4.6 H Baso % (Auto) 0.2 0.5 Lymph # (Auto) 0.83 L 0.78 L [place] # (Auto) 0.4 0.4 Eos # (Auto) 0.2 0.2 Baso # (Auto) 0.0 0.0 Abs Immat Gran (auto) 0.02 0.01 Absolute Neuts (auto) 4.4 3.0 Absolute Nucleated RBC 0.060 H 0.030 H Nucleated RBC % 1.0 H 0.7 H % Immature Plt Fraction 8.0 8.6 Sodium 144 Potassium 3.3 L Chloride 109 H Carbon Dioxide 29 Anion Gap 6 BUN 18 H Creatinine 0.60 L Estim Creat Clear Calc 52 Estimated GFR > 60 Glucose 87 Calcium 8.9 Magnesium 1.7 Total Bilirubin 0.9 AST 77 H ALT 116 H Alkaline Phosphatase 110 Total Protein 7.0 Albumin 3.2 L Free T3 pg/mL 1.5 Quality VTE Prophylaxis VTE prophylaxis: mechanical ordered
[2024-01-02] MEDS: busPIRone HCL 10 MG TABLET PO ×3 (09:41→17:34)
[2024-01-02] MEDS: SULFAMETHOXAZOLE/TRIMETHOPRIM 800/160 MG DS TABLET 2 TAB PO (09:41)
[2024-01-02] MEDS: amLODIPine BESYLATE 10 MG TABLET PO (09:41)
[2024-01-02] MEDS: hydrALAZINE HCL 25 MG TABLET PO ×2 (09:41→17:34)
[2024-01-02] MEDS: CHOLECALCIFEROL 1,000 UNITS TABLET 1000 UNITS PO (09:41)
[2024-01-02] MEDS: AMOXICILLIN/CLAVULANATE K 875-125 MG TAB 1 TABLET PO (09:41)
[2024-01-02] MEDS: MULTIVITAMINS /C LUTEIN (CENTRUM SILVER) TABLET *BKC 1 TAB PO (09:41)
[2024-01-02] MEDS: POTASSIUM CHLORIDE 20 MEQ PACKET (FOR LIQUID) 40 MEQ PO (09:41)
[2024-01-02] MEDS: TOLNAFTATE 1% POWDER 45 GM BTL 1 APPLIC TOPICAL (09:42)
[2024-01-02] MEDS: IRBESARTAN 150 MG TABLET 300 MG PO (09:49)
[2024-01-02] MEDS: FERROUS SULFATE LIQUID 325 MG/7.4 ML ELIXIR PO (09:54)
[2024-01-02 12:00] VITALS: PULSE 72
--- NOTE | 2024-01-02 12:48 | P.DS_ITS ---
DS: Admitting Diagnosis Discharge Date 01/02/2024 Admitting Diagnosis Encephalopathy/Bacteremia DS: Discharge Diagnosis Discharge Diagnosis (1) Encephalopathy: Code(s): G93.40 - Encephalopathy, unspecified Status: Acute (2) Recent urinary tract infection: Code(s): Z87.440 - Personal history of urinary (tract) infections Status: Acute (3) Hypoxia: Code(s): R09.02 - Hypoxemia Status: Acute (4) Acute kidney injury: Code(s): N17.9 - Acute kidney failure, unspecified Status: Acute (5) Thrombocytopenia: Code(s): D69.6 - Thrombocytopenia, unspecified Status: Acute (6) Transaminitis: Code(s): R74.01 - Elevation of levels of liver transaminase levels Status: Acute (7) Hypertension: Code(s): I10 - Essential (primary) hypertension Status: Acute (8) Bacteremia: Code(s): R78.81 - Bacteremia Status: Acute Plan Bacteremia * Blood cultures are growing GPC in clusters x 2 bottles--staph epidermis in 2 bottles. * Started on Bactrim * Repeat blood cultures ordered today 12/31. If no growth in 24 hours she can d/c back to her longterm. Metabolic encephalopathy-Improving * Etiology is not entirely clear; consider infection (UTI), medication-related (alprazolam and trazodone), dehydration, stroke, other * Continue empiric antibiotics and IV fluid rehydration * Urine drug screen is negative; hold alprazolam and trazodone * Check TSH, B12, and ammonia rule out other causes * Brain MRI shows old infarcts and nonspecific white matter disease * Blood cultures are growing GPC in clusters x 2 bottles--staph epidermis in 2 bottles. Initially I thought contamination but given her clinical improvement it may have been a true result. Will discuss de-escalation with ID pharm. * Repeat blood cultures ordered today 12/31. If no growth in 24 hours she can d/c back to her longterm. 01/02/2024: * Acute respiratory failure with hypoxia-Improving * Chest x-ray shows airspace opacities the right perihilar region and at the right lung base. * Off of oxygen, on room air * Add azithromycin to ceftriaxone to cover possible underlying pneumonia. * Modified barium swallow study ordered given daughters concerns that she ?forgot how to swallow.? * Speech recommended pureed and thin liquids Transaminitis-Improving * AST and ALT are elevated with normal total bilirubin and alkaline phosphatase. * Liver enzymes are downtrending after IV fluids. Possible shock from dehydration, hypotension prior to admission? * Abdominal exam is benign and right upper quadrant ultrasound did not show any acute findings but did note cholelithiasis. * Negative CK and hepatitis panel and monitor closely for now. * Hold statin. DS: Summary Hospital Course Reason for hospitalization: Encephalopathy/bacteremia Hospital Course: Admission: This was a 78-year-old female with history of stroke, seizures, dementia, hypertension, and hyperlipidemia who presented to the emergency department via EMS from [facility] in [place] for evaluation of altered mental status. She is not able to provide an accurate history and a majority the following is obtained via a review of her EMR as well as information provided by her family. According to family members she is typically able to hold a conversation but she does have good and bad days with regards to confusion. The last several days she has been essentially babbling and unable to hold conversation. She has not been eating or drinking much either. She was seen in the ED at [facility] several days ago for evaluation and she was diagnosed with urinary tract infection. She has not been taking her antibiotics however as her daughter states ?it seems like she forgot how to swallow.? With further questioning the shanon noriega reports that the patient was recently started on alprazolam and trazodone as she seems to have become increasingly more anxious though it does not sound as though she has had those medications for days either. There have been no reports of fever, cough, vomiting, diarrhea, falls, or focal neurologic changes from baseline. In the ED: Temperature was 100.3? F on arrival. She had 1 blood pressure of 90/77 but the remainder of her blood pressures have been well within normal limits. She is in sinus tachycardia with rates in the 90s to low 100s. Labs are significant for WBC count of 9.4, hemoglobin 10.8, platelet 87, BUN 37, creatinine 1.10, lactic acid 0.6, total bilirubin 1.1, AST 246, ALT 230, alkaline phosphatase 150, CRP 0.6, proBNP 1040. Urinalysis was positive for 2+ ketones, 2+ blood, 2+ leukocyte esterase, 21 to 50 WBC; no bacteria were seen on microscopy. Urine drug screen was negative. She tested negative for influenza, RSV, and COVID. Brain CT showed no acute findings. Chest x-ray showed airspace opacities in the right perihilar region at the right lung base consistent with atelectasis/scarring versus pneumonia. She was given a dose of azithromycin, cefepime, and vancomycin in addition to 1800 mL normal saline bolus and she is being admitted in this setting for further treatment and evaluation. 12/29: Patient is alert and talking to herself on high arrived at the bedside. She acknowledges me but she is difficult to understand as she is missing her teeth and she has garbled speech. When I ask her if she is short of breath I am able to understand that she says no and that she just wants to go home. Her lips are dry and cracked and mucous membranes tacky. There were concerns that she has been aspirating. 12/30: Mrs Villagomez looks better today. She is more alert and is speaking more clearly. She was able to tell the nurse she is at the hospital. Blood cultures are initially growing GPC in clusters, suspect contamination as she has been afebrile. 12/31: No acute events overnight. She continues to improve. She passed her speech evaluation and is tolerating a diet. She is A&Ox2 today. 01/02/2024: DISCHARGED Patient continued mental status improvement and was answering questions at her baseline. Second set of cultures had no growth and first set appeared contaminated but was treated empirically for UTI and pneumonia based on CXR findings. Patient was no longer requiring oxygen and was discharged back to nursing home facility via EMS. Status at Discharge Functional status at discharge: wheelchair bound Time Spent with Patient Time attestation: Total time spent providing and/or coordinating discharge services: Time spent: Greater than 30 minutes Exam Narrative: General: elderly, thin, frail, appears stated age. HEENT: normocephalic, atraumatic. Mucous membranes moist. EOMI, PERRLA, bilateral sclera anicteric, no conjunctival injection. Neck supple without JVD, lymphadenopathy, or bruit. Respiratory: clear to auscultation bilaterally. No rales/rhonic/wheezes. Cardiovascular: Regular rate and rhythm, normal S1-S2 upon auscultation. No murmurs, rubs, or clicks. PMI is nondisplaced, capillary refill less than 3 second. Abdomen: Soft, round, no pulsatile masses, nondistended and nontender. No rebound, no guarding. No CVA tenderness, no hepatosplenomegaly. Bowel sounds present to all four quadrants. No high pitch or tinkling sounds, resonant to percussion. Extremities: No cyanosis, clubbing, or edema present. Pulses are palpable 2/2. Active ROM to all four extremities. Neuro: Alert and orientated x 2. PERRLA. Cranial nerves 2-12 intact without focal deficit. Skin: Warm, dry, and intact, without rash, erythema, or lesion. Lines: PIV Incisions: Psych: pleasant, normal speech, no hallucinations, no dysarthria, confusion DS: Data Data Completed and Pending Labs on day of discharge: Labs from last 24 hours 01/02/24 05:29 WBC 4.3 L RBC 3.25 L Hgb 9.5 L Hct 30.4 L MCV 93.5 MCH 29.2 MCHC 31.3 L RDW 13.6 Plt Count 118 L MPV 11.7 H Immature Gran % (Auto) 0.2 Neut % (Auto) 67.9 Lymph % (Auto) 18.0 L Brewster % (Auto) 8.8 H Eos % (Auto) 4.6 H Baso % (Auto) 0.5 Lymph # (Auto) 0.78 L Brewster # (Auto) 0.4 Eos # (Auto) 0.2 Baso # (Auto) 0.0 Abs Immat Gran (auto) 0.01 Absolute Neuts (auto) 3.0 Absolute Nucleated RBC 0.030 H Nucleated RBC % 0.7 H % Immature Plt Fraction 8.6 Sodium 144 Potassium 3.3 L Chloride 109 H Carbon Dioxide 29 Anion Gap 6 BUN 18 H Creatinine 0.60 L Estim Creat Clear Calc 52 Estimated GFR > 60 Glucose 87 Calcium 8.9 Magnesium 1.7 Total Bilirubin 0.9 AST 77 H ALT 116 H Alkaline Phosphatase 110 Total Protein 7.0 Albumin 3.2 L Preliminary micro results at discharge 01/01/24 09:54 Blood Culture - Preliminary Blood 01/01/24 09:38 Blood Culture - Preliminary Blood 12/29/23 12:13 Blood Culture - Preliminary Blood Staphylococcus epidermidis Imaging Radiologist's impression: Radiology Results: ITS Impressions Chest X-Ray 12/29/23 13:16 IMPRESSION: 1. Airspace opacities in right perihilar region and at right lung base, consistent with atelectasis/scarring versus pneumonia. Head CT 12/29/23 13:34 IMPRESSION: 1. Old infarcts involving the left temporal, parietal, and occipital lobes and left insula, right frontal parietal region, and bilateral thalami. 2. Moderate nonspecific cerebral white matter disease, which likely represents chronic small vessel ischemic disease. Abdomen Ultrasound 12/29/23 16:17 IMPRESSION: 1. Cholelithiasis. No evidence of acute cholecystitis. Brain MRI 12/30/23 13:02 IMPRESSION: 1. Old infarcts in the brain. 2. Moderate nonspecific cerebral white matter disease, which likely represents chronic small vessel ischemic disease. Modified Barium Swallow 12/31/23 12:36 IMPRESSION: Oropharyngeal dysphagia with flash laryngeal penetration without aspiration. Please correlate with speech pathologist findings and specific feeding recommendations. Discharge Plan Discharge Attending physician on discharge: Shayna Nance Consulting providers: Frank Kirkland; Franki Smith; Nadira Wright Megan A.; Dipak Ambrosio V. Discharging Clinician: Audra Fontanez Anticipated Discharge Date/Time: 01/02/24 12:42 Patient Disposition: SNF Activity: may shower and as tolerated Diet: as tolerated and heart healthy Discharge Instructions: How can you care for yourself at home? ? Keep track of any new symptoms or changes in your symptoms. ? Rest until you feel better. ? Be safe with medicines. Take your medicines exactly as prescribed. Call your doctor if you think you are having a problem with your medicine. ? Do not drive after taking a prescription pain medicine. ? Ensure to follow-up with primary care physician as indicated and provide updated medication list provided to you at discharge. When should you call for help? Call 911 anytime you think you may need emergency care. For example, call if: ? You passed out (lost consciousness). Call your doctor now or seek immediate medical care if: ? You have new symptoms like fever, difficulty breathing, Chest pain, vomiting, or rash. ? You have new or different pain. ? You are confused and are having trouble thinking clearly. ? Your symptoms are getting worse. Watch closely for changes in your health, and be sure to contact your doctor if: ? You do not get better as expected. Patient Instructions: Community Acquired Pneumonia (DC), Bacteremia (DC) Patient Language: Indian Stand Alone Forms: General Discharge Information Follow-up/Referrals: Mazin,MD Jona [Primary Care Provider] - 2 Weeks Discharge Medications: New azithromycin [Zithromax] 250 mg Tablet 500 mg PO DAILY@2100 Qty: 1 0RF sulfamethoxazole-trimethoprim 800-160 mg Tablet 2 tab PO Q12HR Qty: 36 0RF ferrous sulfate 220 mg (44 mg iron)/5 mL Elixir 325 mg PO QAM Qty: 30 0RF amoxicillin-pot clavulanate 875-125 mg tablet 1 tablet PO Q12H Qty: 2 0RF Continued levothyroxine 75 mcg tablet 37.5 mcg PO DAILY buspirone 10 mg tablet 10 mg PO TID mirtazapine 15 mg tablet 15 mg PO HS Adults Multivitamin 1 tablet PO DAILY atorvastatin 80 mg Tablet 80 mg PO HS hydralazine 25 mg Tablet 25 mg PO BID tramadol 50 mg Tablet 25 mg PO BID PRN (Reason: Pain) amlodipine 10 mg Tablet 10 mg PO DAILY irbesartan [Avapro] 300 mg Tablet 300 mg PO DAILY doxazosin 2 mg Tablet 2 mg PO HS trolamine salicylate 10 % Cream 1 applic TOPICAL TID PRN (Reason: Pain) Rx Instructions: pain in the left leg ferrous sulfate 325 mg (65 mg iron) Capsule, Extended Release 325 mg PO DAILY cholecalciferol (vitamin D3) [Vitamin D3] 25 mcg (1,000 unit) Tablet 25 mcg PO DAILY acetaminophen [Tylenol] 325 mg Capsule 650 mg PO ONCE PRN (Reason: Pain) diclofenac sodium 1 % Gel 2 g TOPICAL QID PRN (Reason: Pain) Rx Instructions: apply to single elbow, wrist or hand; for hand includes palm/fingers/back of hand Discontinued cephalexin 500 mg capsule 500 mg PO Q6H Rx Instructions: From 12/27 for 10 days, no dose charted on paper medication transfer sheet Date of admission: 12/30/23 17:08 Primary Care Provider: MazinJona Admitting Provider: Luis Alberto Short Attending physician on admission: Audra Fontanez Condition: Stable Quality VTE Prophylaxis VTE prophylaxis: mechanical ordered Hospitalist MIPS Heart Failure (Exclusion) Patient has history of Heart Transplant or Left Ventricular Assistive Device?: No IF YES, STOP HERE Heart Failure (Qualifier) Patient has current or prior documentation of LVEF less than or equal to 40%, or mod/servere depressed LVSF?: No IF NO, STOP HERE
[2024-01-02 14:54] VITALS: BP 126/75; PULSE 72; RESP 16; TEMP 36.2; O2SAT 96
--- NOTE | 2024-01-03 10:06 | P.CDI_ITS ---
CDI Query Clarification Request Risk Factors: Possible pneumonia, encephalopathy, Clinical Indicators: Intial blood cultures positive for staph epidermis. Treatment: po augmentin. Bacteremia has been documented, using the CDC definitions below, please clarify the appropriate diagnosis for your patients clinical presentation and severity of illness. * Bacteremia: Nonspecific laboratory finding of bacteria in the blood. * Septicemia: Systemic disease (sepsis) associated with positive blood cultures. * Sepsis: An infection-induced syndrome without organ dysfunction. * Severe Sepsis: Sepsis with associated acute organ dysfunction. * Septic Shock: Severe sepsis in which the cardiovascular system begins to fail, blood pressure drops, and vital organs are deprived of adequate blood supply. <Selene Euceda RN - Last Filed: 01/03/24 10:09> Clarified Diagnosis Clarified Diagnosis: * Bacteremia: Nonspecific laboratory finding of bacteria in the blood. <Audra Fontanez APRN - Last Filed: 01/03/24 15:53>
--- NOTE | 2024-01-03 10:06 | WPDCDIQUERY2 ---
CDI Query Clarification Request Risk Factors: Possible pneumonia, encephalopathy, Clinical Indicators: Intial blood cultures positive for staph epidermis. Treatment: po augmentin. Bacteremia has been documented, using the CDC definitions below, please clarify the appropriate diagnosis for your patients clinical presentation and severity of illness. Bacteremia: Nonspecific laboratory finding of bacteria in the blood. Septicemia: Systemic disease (sepsis) associated with positive blood cultures. Sepsis: An infection-induced syndrome without organ dysfunction. Severe Sepsis: Sepsis with associated acute organ dysfunction. Septic Shock: Severe sepsis in which the cardiovascular system begins to fail, blood pressure drops, and vital organs are deprived of adequate blood supply. <Selene Euceda RN - Last Filed: 01/03/24 10:09> Clarified Diagnosis Clarified Diagnosis: Bacteremia: Nonspecific laboratory finding of bacteria in the blood. <Audra Fontanez APRN - Last Filed: 01/03/24 15:53>
== END 2024-01-02 18:01 | DRG 52 ==
LOC: ANHED 11:55 → ANH2MED 16:32
PROVIDERS: Nurse Practitioner Acute Care; Physician Assistant; Student in an Organized Health Care Education/Training Program; Admitting Provider Internal Medicine; Emergency Provider Student in an Organized Health Care Education/Training Program; PCP Internal Medicine; Visit Provider Nurse Practitioner Family
DX: G93.41 Metabolic encephalopathy (principal); B95.7 Other staphylococcus as the cause of diseases classified elsewhere; D69.6 Thrombocytopenia, unspecified; E03.9 Hypothyroidism, unspecified; E78.5 Hyperlipidemia, unspecified; F03.90 Unspecified dementia, unspecified severity, without behavioral disturbance, psychotic disturbance, mood disturbance, and anxiety; G40.909 Epilepsy, unspecified, not intractable, without status epilepticus; I10 Essential (primary) hypertension; Z20.822 Contact with and (suspected) exposure to COVID-19; Z87.440 Personal history of urinary (tract) infections; Z86.73 Personal history of transient ischemic attack (TIA), and cerebral infarction without residual deficits
CPT/HCPCS: 36415; 36600; 70450; 70551; 71045; 74230; 76705; 80048; 80053; 80074; 80202; 80307; 81001; 82140; 82550; 82607; 82728; 82746; 82805; 82948; 83010; 83540; 83550; 83605; 83615; 83735; 83880; 84439; 84443; 84480; 84484; 85025; 85046; 85055; 85380; 85384; 85397; 85610; 85652; 85730; 86140; 87040; 87077; 87086; 87181; 87637; 87641; 92611; 93005; 96361; 96365; 96366; 96375; 99285; A9270; G0378; G0379; J0456; J0692; J0696; J3370; J3480; J7030; J7040; J7042; J7050

== ENCOUNTER 2024-01-09 18:54 | Inpatient (IN) | payer OTHER, SELFPAY ==
--- NOTE | ~2024-01-09 | XR_ITS ---
EXAMINATION: XR chest 1V portable DATE: 01/09/2024 19:34 INDICATION: Altered mental status TECHNIQUE: frontal view of the chest was obtained. COMPARISON: Chest radiograph dated 12/29/2023 FINDINGS: Colonic interposition below the and lateral right hemidiaphragm. Mild linear discoid atelectasis at t he right midlung zone. No pulmonary edema, pleural effusion or pneumothorax. Heart size is normal. IMPRESSION: 1. Linear discoid atelectasis right midlung zone. Reviewed, dictated and finalized at location A.
--- NOTE | ~2024-01-09 | US_ITS ---
US right upper quadrant INDICATION: Elevated liver function tests PROCEDURE: Realtime right upper abdominal ultrasound. COMPARISON: No prior studies for comparison. FINDINGS: The pancreas is normal without focal mass or pancreatic ductal dilation. Liver echotexture is normal without focal mass or intrahepatic biliary dilatation. There is normal directional flow i n the portal vein. There is pericholecystic fluid. No definite gallstones visualized on the current study. No gallbladde r wall thickening. Common bile duct measures 5 mm. IMPRESSION: 1: Trace pericholecystic fluid, nonspecific. Reviewed, dictated and finalized at location B.
--- NOTE | ~2024-01-09 | MR_ITS ---
EXAMINATION: MR MRCP wo con/w 3D wo ind pp DATE: 01/10/2024 13:21 INDICATION: Intrahepatic biliary duct dilatation. TECHNIQUE: Magnetic resonance imaging (MRI) of the abdomen was performed without and with 11 mL Multi Flynn intravenous contrast. Thick-slab T2-weighted FSE images were obtained for magnetic resonance c holangiopancreatography (MRCP). Maximum intensity projection 3-D reconstructions of the volumetric da ta were created by the technologist. COMPARISON: Ultrasound 01/09/2024, CT abdomen and pelvis 01/09/2024 FINDINGS: ABDOMEN MRI: There is periportal edema in the liver. There are gallstones in the gallbladder, which i s normal in size. The spleen, pancreas, and adrenal glands are normal. There is an 8 mm cyst in right kidney. Left kidney is normal. The uterus is enlarged with numerous fibroids. There are no dilated l oops of bowel. There is trace ascites. ABDOMEN MRCP: The common duct is normal and measures 6 mm. No choledocholithiasis. IMPRESSION: 1. Cholelithiasis. 2. Normal common duct. No choledocholithiasis. Reviewed, dictated and finalized at location A.
--- NOTE | ~2024-01-09 | US_ITS ---
EXAMINATION: US right upper quadrant DATE: 01/09/2024 23:15 INDICATION: Cholelithiasis TECHNIQUE: Multiple grayscale and Doppler ultrasound images of the abdomen were obtained. COMPARISON: CT dated 01/09/2024 and ultrasound dated 12/29/2023 FINDINGS: Visualized head and body of the pancreas appears normal. The pancreatic tail and portion of the body are obscured by shadowing bowel gas. The visualized proximal inferior vena cava is normal. Liver has normal echogenicity and contour, with a smooth surface. No liver lesion identified. Again seen is mil d intrahepatic biliary ductal dilation. Portal venous flow was seen in the hepatopetal, normal direct ion and has normal Doppler waveform. Innumerable small hyperechoic and shadowing gallstones layering in the dependent aspect of the gallbladder which appears otherwise normal. The common bile duct measu res 4 mm in maximal diameter which is normal. No evident choledocholithiasis within the visualized po rtion of the common bile duct. Sonographic Carlson sign was reported as negative by the vat house laborer. IMPRESSION: 1. Cholelithiasis. 2. Mild intrahepatic ductal dilation with no evident choledocholithiasis within the visualized portio n of the normal caliber common bile duct. Reviewed, dictated and finalized at location A. IMPRESSION: 1. Cholelithiasis. 2. Mild intrahepatic ductal dilation with no evident choledocholithiasis within the visualized portion of the normal caliber common bile duct.
--- NOTE | ~2024-01-09 | CT_ITS ---
EXAMINATION: CT brain wo con DATE: 01/09/2024 21:55 INDICATION: Altered mental status TECHNIQUE: Computed tomography (CT) of the head was performed without intravenous contrast. Sagittal and coronal reconstructions were performed. Automated exposure control and iterative reconstruction t echnique were employed. The dose-length product was 694.76 mGy-cm. COMPARISON: head CT dated 12/29/2023 and brain MRI dated 12/30/2023 FINDINGS: Densities encephalomalacia consistent with chronic infarct involving the left temporal, parietal and occipital lobes as well as the left insula. Additional smaller old infarcts in the right frontopariet al region and bilateral thalami. There is scattered white matter hypoattenuation consistent with superintendent menagerie tati small vessel ischemic disease. No acute intracranial hemorrhage, acute infarction or abnormal ext ra axial fluid collection. Expected dilation of the left lateral ventricle. No mass/mass effect. Mild mucosal thickening in the bilateral ethmoid sinuses. Debris/cerumen at the bilateral external audito ry canals. The orbits and mastoid air cells are normal. Intracranial calcified cerebral atheroscleros is is noted. IMPRESSION: 1. No acute intracranial process. 2. Chronic large infarct involving the left middle cerebral artery vascular distribution with smaller old infarcts in the right frontoparietal region and bilateral thalami 3. Stable appearance of moderate scattered white matter hypoattenuation consistent with chronic small vessel ischemic disease. Reviewed, dictated and finalized at location A. IMPRESSION: 1. No acute intracranial process. 2. Chronic large infarct involving the left middle cerebral artery vascular dis tribution with smaller old infarcts in the right frontoparietal region and bila teral thalami 3. Stable appearance of moderate scattered white matter hypoattenuation consist ent with chronic small vessel ischemic disease.
--- NOTE | ~2024-01-09 | CT_ITS ---
EXAMINATION: CT abdomen pelvis w con DATE: 01/09/2024 21:54 INDICATION: Abdominal pain, nausea, vomiting and diarrhea TECHNIQUE: Computed tomography (CT) of the abdomen and pelvis was performed with 100 mL Omnipaque-350 intravenous contrast. Automated exposure control and iterative reconstruction technique were employe d. The dose-length product was 694.76 mGy-cm. COMPARISON: None FINDINGS: Atelectasis in the right lower lobe posterior to the elevated right hemidiaphragm. Cardiomegaly. Atel ectatic coronary artery calcification. No pericardial or pleural effusion. Multiple small calcified g allstones layering dependently in the normal-appearing gallbladder. Unchanged mild intrahepatic ducta l dilation. No evident gallstones within the normal caliber common bile duct which measures up to 6 m m in diameter. Spleen, pancreas, bilateral adrenal glands and kidneys are normal. Moderate scattered colonic diverticulosis without adjacent inflammatory stranding to suggest arthritis. No bowel obstruc tion. Normal appendix. Markedly enlarged uterus containing numerous fibroids. Bladder is normal. No f ree intraperitoneal gas or fluid. No pathologically enlarged abdominal or pelvic lymphadenopathy. Chr onic T12 and L4 compression fractures. Unchanged grade 2-3 anterolisthesis L4 on L5 with severe assoc iated lumbar facet osteoarthritis. IMPRESSION: 1. Cholelithiasis with chronic mild intrahepatic biliary ductal dilation but normal caliber common bi le duct with no evident choledocholithiasis. Correlate with liver function tests. 2. Thyromegaly. 2. Markedly enlarged fibroid uterus. Reviewed, dictated and finalized at location A. IMPRESSION: 1. Cholelithiasis with chronic mild intrahepatic biliary ductal dilation but no rmal caliber common bile duct with no evident choledocholithiasis. Correlate wi liver function tests. 2. Thyromegaly. 2. Markedly enlarged fibroid uterus.
[2024-01-09 18:59] VITALS: BP 115/81; PULSE 97; RESP 24; TEMP 36.7; O2SAT 93
--- NOTE | 2024-01-09 19:15 | ECG_ITS ---
Test Date: 2024-01-09 19:58:35 Measurements Intervals [place] Rate: 90 P: -19 WV: 174 QRS: -13 QRSD: 85 T: 133 QT: 361 QTc: 443 Interpretive Statements SINUS RHYTHM BASELINE ARTIFACT LIMITS INTERPRETATION Compared to ECG 12/29/2023 13:26:54 NO SIGNIFICANT CHANGES Electronically Signed On 01-10-2024 14:40:48 CDT by Fatmata Jang M.D.
--- NOTE | 2024-01-09 19:21 | ED.NAVMDI ---
HPI - Nausea/Vomiting/Diarrhea General Chief complaint: Nausea/Vomiting/Diarrhea Stated complaint: N/V, AMS Time Seen by Provider: 01/09/24 18:56 History of Present Illness HPI Narrative: 78 y/o F with a hx of HLD, hypothyroidism, transaminitis, HTN, dementia is normally A&O x1 presents to the emergency department via EMS from local custodial for nausea and vomiting after meals. longterm staff also reported to EMS that the patient was not acting like herself . The patient is at her baseline mental status. when asked if she has any pain she said her stomach hurts and she has been vomiting. She otherwise is not able to provide significant history secondary to dementia. Upon questioning she denies headache, chest pain or shortness of breath. she does endorse dysuria and cough when prompted. She is also being outpatient for pneumonia and UTI with Augmentin, Bactrim and azithromycin. She was discharged from our hospital on 01/02/2024 for encephalopathy, UTI and pneumonia. Related Data Home Medications Medication Instructions Recorded Confirmed acetaminophen 325 mg capsule 650 mg PO ONCE PRN Pain 04/28/22 12/29/23 (Tylenol) amlodipine 10 mg tablet 10 mg PO DAILY 04/28/22 12/29/23 atorvastatin 80 mg tablet 80 mg PO HS 04/28/22 12/29/23 cholecalciferol (vitamin D3) 25 25 mcg PO DAILY 04/28/22 12/29/23 mcg (1,000 unit) tablet (Vitamin D3) diclofenac sodium 1 % topical gel 2 g topical QID PRN Pain 04/28/22 12/29/23 doxazosin 2 mg tablet 2 mg PO HS 04/28/22 12/29/23 ferrous sulfate 325 mg (65 mg 325 mg PO DAILY 04/28/22 12/29/23 iron) capsule,extended release hydralazine 25 mg tablet 25 mg PO BID 04/28/22 12/29/23 irbesartan 300 mg tablet (Avapro) 300 mg PO DAILY 04/28/22 12/29/23 tramadol 50 mg tablet 25 mg PO BID PRN Pain 04/28/22 12/29/23 trolamine salicylate 10 % topical 1 applic topical TID PRN Pain 04/28/22 12/29/23 cream Adults Multivitamin 1 tablet PO DAILY 12/29/23 12/29/23 buspirone 10 mg tablet 10 mg PO TID 12/29/23 12/29/23 levothyroxine 75 mcg tablet 37.5 mcg PO DAILY 12/29/23 12/29/23 mirtazapine 15 mg tablet 15 mg PO HS 12/29/23 12/29/23 Allergies Allergy/AdvReac Type Severity Reaction Status Date / Time No Known Allergies Allergy Verified 04/28/22 17:35 Review of Systems Review of Systems: All systems reviewed & are unremarkable except as noted in HPI and below PMFSH Past Medical History Medical History Anemia Anxiety Cerebrovascular accident Chronic indwelling Elias catheter Degenerative disc disease Dementia Hyperlipidemia Hypertension Hypothyroidism Neurogenic bladder Osteoarthritis Seizure disorder Uterine fibroid Surgical History Surgical History History of section Family History Family History Unknown Unknown family medical history Social History Social History Social History: Patient has 3 daughters and a son Code status: Full code. Code status full code per [place] documentation and POLST signed 12/09/20; confirmed by family in conversation 12/29/2023 Smoking status: Never smoker Alcohol intake: never Substance use: never Do You Feel Safe in your Home?: Yes Lack of Transportation: No Lack of Food: Never True Current Housing: I Have Housing Concerned About Future Housing: No Difficulty Paying Gas/Electric Bills: No Difficulty Paying for Meds: No Currently Unemployed: No Education: High School Diploma/GED Difficulty w/ Childcare or Family Care: No Additional living arrangements comments: . Lives at [facility] in [place]. Spiritual care concerns: No Exam Narrative: GENERAL: Elderly, pleasant and cooperative HEAD: Normocephalic, atraumatic. EYES: PERRLA and EOMI. ENT: Anali maier
[2024-01-09 19:30] VITALS: BP 106/56; PULSE 94; RESP 20; O2SAT 100
[2024-01-09] MEDS: ONDANSETRON INJ 4 MG/2 ML VIAL IV PUSH (19:48)
[2024-01-09 20:14] LABS: Basophils Percent Auto 0.3 % (0.2-1.2); Eosinophils Percent Auto 0.1 % (0-4.4); Hematocrit 30.5 % (37.0-47.0); Immature Granulocyte Absolute 0.19 K/mm3 (0.00-0.031); Immature Granulocyte Percent A 1.7 % (0-0.5); Lymphocytes Absolute Auto 0.24 K/mm3 (0.9-3.2); Lymphocytes Percent Auto 2.2 % (18.3-44.2); Mean Corpuscular HGB Conc 32.8 g/dl (32-36); Mean Corpuscular Hemoglobin 30.2 pg (26-34); Mean Corpuscular Volume 92.1 fl (80-100); Mean Platelet Volume 9.6 fl (7.4-10.4); Monocytes Absolute Auto 1.3 K/mm3 (0.1-0.6); Monocytes Percent Auto 12.2 % (2.6-8.5); Neutrophils Absolute Auto 9.1 K/mm3 (1.3-6.7); Neutrophils Percent Auto 83.5 % (45.5-73.1); Platelet Count Result 243 k/mm3 (150-375); Red Blood Count 3.31 M/mm3 (4.2-5.4); Red Cell Distribution Width 14.5 % (11.5-14.5); White Blood Count 10.9 K/mm3 (4.5-10.0)
[2024-01-09 20:24] LABS: Alanine Aminotransferase 64 U/L (6-35); Albumin Level 3.6 g/dL (3.5-5.1); Alkaline Phosphatase 200 U/L (38-126); Anion Gap 11 mmol/L (4-12); Aspartate Amino Transferase 75 U/L (14-36); Blood Urea Nitrogen 18 mg/dL (7-17); Calcium 9.6 mg/dL (8.4-10.2); Carbon Dioxide 24 mmol/L (22-30); Chloride 101 mmol/L (98-107); Creatine Kinase 251 U/L (30-135); Estimated CRCL calculation 34 ml/min; Estimated Glomerular Filt Rate > 60; Glucose 76 mg/dL (65-110); Lipase 968 U/L (23-300); Potassium 4.4 mmol/L (3.4-5.0); Sodium 136 mmol/L (137-145)
[2024-01-09 20:32] LABS: Add Urine Microscopic? YES; Appearance Urine Clear (Clear); Bacteria Urine None Seen /hpf; Bilirubin Urine Negative (Negative); Blood Urine Negative (Negative); Color Urine Dark Yellow (Yellow); Glucose Urine UA Negative (Negative); Ketones Urine Trace mg/dL (Negative); Leukocyte Esterase Ur Trace LEU/UL (Negative); Nitrate Urine Negative (Negative); Non Pathogenic Casts 0-2; Protein Urine 1+ mg/dL (Negative); RBC Urine 0-2 /hpf (0-2); Squamous Epithelial Cell Urine None Seen /hpf (Few); WBC Urine 0-5 /hpf (0-3); pH Urine 7.5 (5.0-9.0)
[2024-01-09 20:32] LABS: Lactic Acid Reflex 2.2 mmol/L (0.7-2.0)
[2024-01-09 21:00] VITALS: BP 130/97; PULSE 94; RESP 17; O2SAT 97
[2024-01-09] MEDS: SODIUM CHLORIDE 0.9% IV 1,000 ML 999 ML IV CONT (21:02)
[2024-01-09 21:26] LABS: Thyroid Stimulating Hormone Reflex 0.112 uIU/mL (0.465-4.68)
[2024-01-09 22:00] LABS: Free T4 Free Thyroxine Reflex 1.97 ng/dL (0.78-2.19)
[2024-01-09 22:54] VITALS: BP 94/58; PULSE 91; RESP 22; O2SAT 99
[2024-01-09 23:05] LABS: Total Triiodothyronine (T3) 0.61 NG/ML (0.97-1.69)
[2024-01-09 23:12] LABS: Reflex Lactic Acid Yes or No Add Lactic
[2024-01-10] VITALS (9 sets, daily range): BP systolic 95–110; BP diastolic 52–92; PULSE 80–111; RESP 16–24; TEMP 36.4–37.2; O2SAT 95–100; BMI 22.6
[2024-01-10] MEDS: PIPERACILLN/TAZ 3.375GM/NS50ML 3.375 GM/50 ML BAG IVPB (00:07)
[2024-01-10] MEDS: SODIUM CHLORIDE 0.9% IV 1,000 ML 999 ML IV CONT (00:07)
[2024-01-10 00:55] LABS: Influenza A QL RT-PCR Negative (Negative); Influenza B QL RT-PCR Negative (Negative); RSV RNA, RT-PCR Negative (Negative); SARS-CoV-2 RNA PCR Negative (Negative)
--- NOTE | 2024-01-10 01:33 | ADMGEN ---
This patient, Jeane Villagomez, was admitted to [facility] Surg Room 317-02. Patient/family oriented to hospital policies and general routines including ID bracelet, bed and alarms, visiting hours, pain management, procedures, bathroom and other care routines, personal items, smoking policy, room service/diet, and visiting hours. Information on how to activate the Rapid Response Team has been discussed. Patient/Family are encouraged to report perceived risks to care and to ask questions if they do not understand what they are told or what they should do.
[2024-01-10 01:36] LABS: Lactic Acid 0.7 mmol/L (0.7-2.0)
[2024-01-10] MEDS: LACTATED RINGERS 1,000 ML 125 ML IV CONT (04:45)
[2024-01-10] MEDS: PIPERACILLIN/TAZ 2.25G/NS 50ML 2.25 GM/50 ML BAG IVPB ×2 (05:12→13:45)
[2024-01-10] MEDS: LEVOTHYROXINE SODIUM 12.5 MCG TABLET 37.5 MCG PO (06:28)
[2024-01-10 07:07] LABS: Basophils Percent Auto 0.1 % (0.2-1.2); Eosinophils Absolute Auto 0.1 K/mm3 (0-0.3); Eosinophils Percent Auto 0.9 % (0-4.4); Hematocrit 25.2 % (37.0-47.0); Hemoglobin 8.1 g/dL (12.0-15.0); Immature Granulocyte Absolute 0.41 K/mm3 (0.00-0.031); Immature Granulocyte Percent A 4.7 % (0-0.5); Lymphocytes Absolute Auto 0.54 K/mm3 (0.9-3.2); Lymphocytes Percent Auto 6.2 % (18.3-44.2); Mean Corpuscular HGB Conc 32.1 g/dl (32-36); Mean Corpuscular Hemoglobin 29.6 pg (26-34); Mean Platelet Volume 9.7 fl (7.4-10.4); Monocytes Absolute Auto 1.1 K/mm3 (0.1-0.6); Monocytes Percent Auto 12.1 % (2.6-8.5); Neutrophils Absolute Auto 6.6 K/mm3 (1.3-6.7); Platelet Count Result 216 k/mm3 (150-375); Red Blood Count 2.74 M/mm3 (4.2-5.4); Red Cell Distribution Width 14.6 % (11.5-14.5); White Blood Count 8.7 K/mm3 (4.5-10.0)
[2024-01-10 07:17] LABS: Alanine Aminotransferase 61 U/L (6-35); Albumin Level 2.8 g/dL (3.5-5.1); Alkaline Phosphatase 192 U/L (38-126); Anion Gap 6 mmol/L (4-12); Aspartate Amino Transferase 75 U/L (14-36); Bilirubin,Total 1.3 mg/dL (0.2-1.3); Blood Urea Nitrogen 15 mg/dL (7-17); Calcium 8.7 mg/dL (8.4-10.2); Carbon Dioxide 22 mmol/L (22-30); Chloride 107 mmol/L (98-107); Estimated CRCL calculation 37 ml/min; Estimated Glomerular Filt Rate > 60; Glucose 61 mg/dL (65-110); Lipase 893 U/L (23-300); Magnesium 1.8 mg/dL (1.6-2.3); Sodium 135 mmol/L (137-145)
--- NOTE | 2024-01-10 08:19 | P.CONGI_ITS ---
I, Lawrence Martin MD, have provided a substantive portion of the care of this patient and discussed the patient with my Nurse Practitioner. I have reviewed any new relevant radiographic and laboratory results including medications. I agree with her documentation as noted below.?I personally performed the medical decision making and much of the history and exam for this encounter. briefly, she is a alf patient with advanced dementia, recent hospitalization with lethargy, fever ? UTI, also noted transaminases 100's with normal bili. She is back with n/v, lipase 900, transaminases 70, MRCP cholelithiasis with normal GB otherwise, normal bile duct. No plan for ercp, liquid diet as tolerated, monitor. Started empirically on abx by primary (last hospitalization had + blood cx) Assessment and Plan Assessment and plan (1) Intrahepatic bile duct dilation: Code(s): K83.8 - Other specified diseases of biliary tract Status: Acute (2) Transaminitis: Code(s): R74.01 - Elevation of levels of liver transaminase levels Status: Acute (3) Elevated lipase: Code(s): R74.8 - Abnormal levels of other serum enzymes Status: Acute (4) Normocytic anemia: Code(s): D64.9 - Anemia, unspecified Status: Acute (5) Dysphagia: Qualifiers: Dysphagia type: oropharyngeal phase Qualified Code(s): R13.12 - Dysphagia, oropharyngeal phase Code(s): R13.10 - Dysphagia, unspecified Status: Acute (6) Nausea and vomiting: Qualifiers: Vomiting type: unspecified Qualified Code(s): R11.2 - Nausea with vomiting, unspecified Code(s): R11.2 - Nausea with vomiting, unspecified Status: Acute (7) Elevated LFTs: Code(s): R79.89 - Other specified abnormal findings of blood chemistry Status: Acute Plan 1) Abnormal imaging biliary / intrahepatic ductal dilation /elevated lipase/ elevated LFTs: Ultrasound showed cholelithiasis and mild intrahepatic ductal dilation with no evidence of choledocholithiasis. CBD normal at [address] showed cholelithiasis with chronic mild intrahepatic biliary ductal dilation but normal CBD caliber at 9 mm. No pancreatic inflammation or abnormalities noted on either imaging. Negative Carlson sign. Liver transaminase trending down since 12/29/2023 showing total bilirubin normal, AST 246 -->75, ALT 230-->61, and alk-phos 192. Lipase with mild improvement since admission showing 968-->893. Patient A&O x1 so unable to obtain any subjective information regarding symptoms. * MRCP ordered and pending completion * Further recommendations to follow imaging * If MRCP abnormal may consider ERCP * continue monitoring LFT's 2) Nausea and vomiting: ER documentation states that patient presented to the emergency room for postprandial nausea and vomiting. * Symptoms may be related to problem #1 3) Normocytic anemia: Patient with chronic normocytic anemia since April of 2022. On admission HGB 10 and today HGB 8.1 , HCT 25, MCV 92, platelets 216. No signs of active GI bleeding. * primary care team to continue monitoring H&H and transfuse as needed to keep HGB > 7 4) Dysphagia: Modified barium swallow 12/31/2023 showed oropharyngeal dysphagia with flash laryngeal penetration without aspiration. Speech therapy impression showed mild dysphagia. Recommendations include pureed diet with thin liquids. * Continue following speech therapy recommendations no indication for endoscopic intervention given that her symptoms are oropharyngeal in nature Thank you very much for allo
--- NOTE | 2024-01-10 08:19 | WPDGICN ---
Assessment and Plan Assessment and plan (1) Intrahepatic bile duct dilation: Code(s): K83.8 - Other specified diseases of biliary tract Status: Acute (2) Transaminitis: Code(s): R74.01 - Elevation of levels of liver transaminase levels Status: Acute (3) Elevated lipase: Code(s): R74.8 - Abnormal levels of other serum enzymes Status: Acute (4) Normocytic anemia: Code(s): D64.9 - Anemia, unspecified Status: Acute (5) Dysphagia: Qualifiers: Dysphagia type: oropharyngeal phase Qualified Code(s): R13.12 - Dysphagia, oropharyngeal phase Code(s): R13.10 - Dysphagia, unspecified Status: Acute (6) Nausea and vomiting: Qualifiers: Vomiting type: unspecified Qualified Code(s): R11.2 - Nausea with vomiting, unspecified Code(s): R11.2 - Nausea with vomiting, unspecified Status: Acute (7) Elevated LFTs: Code(s): R79.89 - Other specified abnormal findings of blood chemistry Status: Acute Plan 1) Abnormal imaging biliary / intrahepatic ductal dilation /elevated lipase/ elevated LFTs: Ultrasound showed cholelithiasis and mild intrahepatic ductal dilation with no evidence of choledocholithiasis. CBD normal at [address] showed cholelithiasis with chronic mild intrahepatic biliary ductal dilation but normal CBD caliber at 9 mm. No pancreatic inflammation or abnormalities noted on either imaging. Negative Carlson sign. Liver transaminase trending down since 12/29/2023 showing total bilirubin normal, AST 246 -->75, ALT 230-->61, and alk-phos 192. Lipase with mild improvement since admission showing 968-->893. Patient A&O x1 so unable to obtain any subjective information regarding symptoms. MRCP ordered and pending completion Further recommendations to follow imaging If MRCP abnormal may consider ERCP continue monitoring LFT's 2) Nausea and vomiting: ER documentation states that patient presented to the emergency room for postprandial nausea and vomiting. Symptoms may be related to problem #1 3) Normocytic anemia: Patient with chronic normocytic anemia since April of 2022. On admission HGB 10 and today HGB 8.1 , HCT 25, MCV 92, platelets 216. No signs of active GI bleeding. primary care team to continue monitoring H&H and transfuse as needed to keep HGB > 7 4) Dysphagia: Modified barium swallow 12/31/2023 showed oropharyngeal dysphagia with flash laryngeal penetration without aspiration. Speech therapy impression showed mild dysphagia. Recommendations include pureed diet with thin liquids. Continue following speech therapy recommendations no indication for endoscopic intervention given that her symptoms are oropharyngeal in nature Thank you very much for allowing me to share in the care of this very nice patient. This report may have been done utilizing a voice recognition system. Attempts have been made to correct errors. However, there may be uncorrected grammatical, spelling, and recognition errors present. GI Consult Note Consult date/time: 01/10/24 08:19 Reason for consult: intrahepatic biliary ductal dilation, elevated lipase, elevated alkaline phosphatase HPI: This is a 78-year-old female with history of HLD, hypothyroidism, HTN, dementia , anxiety, history of CVA, neurogenic bladder, seizure disorder, history of . Patient was recently admitted to [facility] December 28- for metabolic encephalopathy, acute respiratory failure, and elevated transaminase. She presented back to the emergency room yesterday from long-term for postprandial nausea and vomiting. Patient is A&O x1 so I was unable to obtain any subjective information from the patient. Information provided was from ER documentation in previous records. ENDOSCOPY HISTORY: Past EGD and colonoscopy history unknown LABS AND STOOL STUDIES: Labs 12/29/2023 showed total bilirubin 1.1, AST 246, ALT
--- NOTE | 2024-01-10 08:47 | PM.IMHP ---
H&P: HPI History of Present Illness Date/Time: 01/10/24 08:47 Chief Complaint: Nausea and vomiting Narrative: This is a 78-year-old female with history of stroke, seizures, dementia, hypertension, and hyperlipidemia who presented to the emergency department via EMS from [place] in [place] for evaluation of nausea and vomiting. The patient has dementia and is oriented 1-2 at baseline. She is familiar to me from a recent admission for altered mental status and was found have bacteremia with possible UTI and pneumonia. She was treated with IV antibiotics and her altered mental status improved back to her baseline. She was discharged on [facility]/01 [facility] to [facility]. She is unable to provide much of the information given her dementia but her daughter is at the bedside and provides information. The daughter states that the staff at the [facility] were concerned because she was having nausea and vomiting frequently and unable to keep oral intake down. She was also complaining of her abdomen hurting. Her daughter is concerned because the patient's face appears edematous and she has facial flushing. She feels warm to the touch but she is afebrile. In the emergency room labs are significant for white count 10.9, hemoglobin 10.0, sodium 136, potassium 4.4, lactic 2.2, AST 75, ALT 64, alk-phos 200, total CK 251, lipase 968, TSH 0.112, normal T4 1.97, and total T3 0.61. Her urinalysis showed dark yellow clear urine with +1 protein, trace ketones, trace leukocyte Estrace without bacteria or pyuria. Upper respiratory panel was negative for flu, RSV, COVID. Chest x-ray showed linear discoid atelectasis at the right midlung zone that appear unchanged from previous imaging. CT abdomen and pelvis showed cholelithiasis with chronic mild intrahepatic biliary ductal dilatation, thyromegaly, and large fibroid uterus. She then underwent a right upper quadrant ultrasound which showed cholelithiasis and again possible ductal dilatation but now evident choledochal lithiasis. CT head showed no acute intracranial process with known chronic old infarcts. GI was consulted and recommended an MRCP. Given patient's inability to follow direction MRCP was completed without contrast and showed normal common duct without choledocholithiasis. She was admitted in this setting for GI consult, MRCP, IV fluids and pain control. PMFSH Past Medical History Medical History Anemia Anxiety Cerebrovascular accident Chronic indwelling Elias catheter Degenerative disc disease Dementia Hyperlipidemia Hypertension Hypothyroidism Neurogenic bladder Osteoarthritis Seizure disorder Uterine fibroid Surgical History Surgical History History of section Family History Family History Unknown Unknown family medical history Social History Social History Social History: Patient has 3 daughters and a son Code status: Full code. Code status full code per MD documentation and POLST signed 12/09/20; confirmed by family in conversation 12/29/2023 Smoking status: Never smoker Alcohol intake: never Substance use: never Do You Feel Safe in your Home?: Yes Lack of Transportation: No Lack of Food: Never True Current Housing: I Have Housing Concerned About Future Housing: No Difficulty Paying Gas/Electric Bills: No Difficulty Paying for Meds: No Currently Unemployed: No Education: High School Diploma/GED Difficulty w/ Childcare or Family Care: No Additional living arrangements comments: . Lives at [facility] in [place]. Spiritual care concerns: No Meds Home Medications and Allergies Home Medications Medication Instructions Recorded Confirmed Type acetaminophen 325 mg capsule 650 mg PO TID PRN Pain 12/0
[2024-01-10] MEDS: MULTIVITAMINS THERAPEUTIC TAB (*BKC) 1 TABLET PO (09:53)
[2024-01-10] MEDS: amLODIPine BESYLATE 10 MG TABLET PO (09:53)
[2024-01-10] MEDS: busPIRone HCL 10 MG TABLET PO ×2 (09:54→16:31)
[2024-01-10] MEDS: FERROUS SULFATE 325 MG TABLET DR BY MOUTH (09:54)
[2024-01-10] MEDS: CHOLECALCIFEROL 1,000 UNITS TABLET 1000 UNITS PO (09:54)
[2024-01-10] MEDS: LORazepam INJ (*CRX) 2 MG/ML VIAL 0.5 MG IV PUSH (11:58)
[2024-01-10] MEDS: DICLOFENAC SODIUM 1% 100 GM GEL (*BKC) 1 APPLIC TOPICAL (15:43)
[2024-01-10] MEDS: LACTATED RINGERS 1,000 ML 100 ML IV CONT (17:01)
[2024-01-10 18:29] LABS: Glucose Point of Care 65 mg/dl (65-105)
[2024-01-10 18:44] LABS: Glucose Point of Care 76 mg/dl (65-105)
[2024-01-10] MEDS: SULFAMETHOXAZOLE/TRIMETHOPRIM 800/160 MG DS TABLET 1 TAB PO (21:45)
[2024-01-10] MEDS: DOXAZOSIN MESYLATE 2 MG TABLET PO (21:45)
[2024-01-10] MEDS: ATORVASTATIN 40 MG TABLET 80 MG PO (21:45)
[2024-01-10] MEDS: MIRTAZAPINE 15 MG TABLET PO (21:45)
[2024-01-11 00:05] LABS: Glucose Point of Care 66 mg/dl (65-105)
[2024-01-11] MEDS: DEXTROSE 50% 25 GM/50 ML SYRINGE IV PUSH (00:49)
[2024-01-11 01:28] LABS: Glucose Point of Care 112 mg/dl (65-105)
[2024-01-11 04:59] LABS: Glucose Point of Care 75 mg/dl (65-105)
[2024-01-11] MEDS: DEXTROSE 10% 1,000 ML 50 ML IV CONT (05:18)
[2024-01-11 06:00] VITALS: BP 104/56; PULSE 96; RESP 20; TEMP 36.7; O2SAT 94
[2024-01-11] MEDS: LEVOTHYROXINE SODIUM 12.5 MCG TABLET 37.5 MCG PO (06:19)
[2024-01-11 07:13] LABS: Basophils Percent Auto 0.3 % (0.2-1.2); Eosinophils Absolute Auto 0.1 K/mm3 (0-0.3); Hematocrit 26.1 % (37.0-47.0); Hemoglobin 8.5 g/dL (12.0-15.0); Immature Granulocyte Absolute 0.03 K/mm3 (0.00-0.031); Immature Granulocyte Percent A 0.4 % (0-0.5); Lymphocytes Absolute Auto 0.58 K/mm3 (0.9-3.2); Mean Corpuscular HGB Conc 32.6 g/dl (32-36); Mean Corpuscular Hemoglobin 29.5 pg (26-34); Mean Corpuscular Volume 90.6 fl (80-100); Mean Platelet Volume 9.7 fl (7.4-10.4); Monocytes Absolute Auto 1.1 K/mm3 (0.1-0.6); Monocytes Percent Auto 15.3 % (2.6-8.5); Neutrophils Absolute Auto 5.4 K/mm3 (1.3-6.7); Platelet Count Result 234 k/mm3 (150-375); Red Blood Count 2.88 M/mm3 (4.2-5.4); Red Cell Distribution Width 14.3 % (11.5-14.5); White Blood Count 7.2 K/mm3 (4.5-10.0)
[2024-01-11 07:24] LABS: Alanine Aminotransferase 76 U/L (6-35); Albumin Level 2.9 g/dL (3.5-5.1); Alkaline Phosphatase 277 U/L (38-126); Anion Gap 5 mmol/L (4-12); Aspartate Amino Transferase 113 U/L (14-36); Bilirubin,Total 2.4 mg/dL (0.2-1.3); Blood Urea Nitrogen 10 mg/dL (7-17); Calcium 8.8 mg/dL (8.4-10.2); Carbon Dioxide 25 mmol/L (22-30); Chloride 107 mmol/L (98-107); Estimated CRCL calculation 47 ml/min; Estimated Glomerular Filt Rate > 60; Glucose 82 mg/dL (65-110); Magnesium 1.9 mg/dL (1.6-2.3); Potassium 3.7 mmol/L (3.4-5.0); Sodium 137 mmol/L (137-145)
[2024-01-11 07:33] LABS: Lipase 709 U/L (23-300)
[2024-01-11 08:14] LABS: Glucose Point of Care 93 mg/dl (65-105)
[2024-01-11] MEDS: SULFAMETHOXAZOLE/TRIMETHOPRIM 800/160 MG DS TABLET 1 TAB PO ×2 (08:42→20:28)
[2024-01-11] MEDS: MULTIVITAMINS THERAPEUTIC TAB (*BKC) 1 TABLET PO (08:42)
[2024-01-11] MEDS: busPIRone HCL 10 MG TABLET PO ×3 (08:42→16:54)
[2024-01-11] MEDS: CHOLECALCIFEROL 1,000 UNITS TABLET 1000 UNITS PO (08:42)
[2024-01-11] MEDS: ENOXAPARIN 40 MG/0.4 ML SYRINGE SUB-Q (08:42)
[2024-01-11] MEDS: FERROUS SULFATE 325 MG TABLET DR BY MOUTH (08:42)
[2024-01-11] MEDS: amLODIPine BESYLATE 10 MG TABLET PO (08:42)
[2024-01-11] MEDS: polyethylene glycoL 3350 17 GM POWD.PACK PO (08:42)
[2024-01-11 12:11] LABS: Glucose Point of Care 115 mg/dl (65-105)
[2024-01-11 14:00] VITALS: BP 109/58; PULSE 97; RESP 22; TEMP 37.6; O2SAT 97
[2024-01-11] MEDS: ACETAMINOPHEN 325 MG TABLET 650 MG PO (14:07)
--- NOTE | 2024-01-11 14:58 | WPDGIPROGNO ---
Progress Note: A&P Assessment and Plan (1) Elevated LFTs: Code(s): R79.89 - Other specified abnormal findings of blood chemistry Status: Acute Assessment and Plan: bili up to 2 with MRCP that showed normal bile duct cholelithiasis, ? GS pancreatitis she is poor candidate for surgery, will get hida scan liquid diet for now trend liver enzymes, could be elevated due to pancreatitis- if continue to rise then consult surgery (2) Abdominal pain: Code(s): R10.9 - Unspecified abdominal pain Status: Acute (3) Pancreatitis: Qualifiers: Acute pancreatitis complication: unspecified Chronicity: acute Pancreatitis type: unspecified pancreatitis type Qualified Code(s): K85.90 - Acute pancreatitis without necrosis or infection, unspecified Code(s): K85.90 - Acute pancreatitis without necrosis or infection, unspecified Status: Acute (4) Cholelithiasis: Qualifiers: Cholecystitis presence: without cholecystitis Code(s): K80.20 - Calculus of gallbladder without cholecystitis without obstruction Status: Acute (5) Dementia: Code(s): F03.90 - Unspecified dementia, unspecified severity, without behavioral disturbance, psychotic disturbance, mood disturbance, and anxiety Status: Acute Subjective Date/time seen: 01/11/24 14:58 Interval history: it is difficult to get anything from here because dementia, family says that she has discomfort after drinking ensure patient says that foot is hurting Review of Systems Review of Systems: All systems reviewed & are unremarkable except as noted in HPI and below Exam Const: General: no acute distress Other: thin, frail HENMT: Face/Nose/Sinus: Normal nares present Eyes: General: appearance normal, both eyes and all related structures Neck: Neck: supple Resp: Auscultation: clear to auscultation bilaterally Cardio: Rate: regular rate Rhythm: regular rhythm GI: Inspection: non-distended GI Palp: Yes Soft to palpation, Yes Tenderness to palpation present (GI) (mild ttp, no rebound) and No Guarding due to palpation present (GI) Auscultation: normal bowel sounds Skin: General skin exam: normal color Neuro: Speech: normal speech Other: confused Extrem: General: normal to inspection Objective Data Vital Signs Vital Signs: Vital Signs - 24 hr 01/10/24 21:00 01/10/24 20:00 01/11/24 06:00 Temperature 98.0 F 98.1 F Pulse Rate 96 96 96 Respiratory Rate 24 H 24 H 20 Blood Pressure 107/71 104/56 L Pulse Oximetry 95 95 94 Oxygen Delivery Room Air 01/11/24 08:45 Temperature Pulse Rate Respiratory Rate Blood Pressure Pulse Oximetry Oxygen Delivery Room Air Intake/Output Intake/Output: Intake & Output 01/08/24 01/09/24 01/10/24 01/11/24 23:59 23:59 23:59 23:59 Intake Total 1000 2150.0 1000 Output Total 1000 1200 Balance 1000 1150.0 -200 Meds/Results Medications: Active Medications Generic Name Dose Route Start Last Admin Trade Name Freq PRN Reason Stop Dose Admin Acetaminophen 650 mg 01/10/24 05:17 01/11/24 14:07 Acetaminophen 325 Mg Tablet PO 650 mg TID PRN Administration Pain Rated 5 or Less Amlodipine Besylate 10 mg 01/10/24 09:00 01/11/24 08:42 Amlodipine Besylate 10 Mg Tablet PO 10 mg DAILY TIFFANY Administration Atorvastatin Calcium 80 mg 01/10/24 21:00 01/10/24 21:45 Atorvastatin 40 Mg Tablet PO 80 mg HS TIFFANY Administration Buspirone HCl 10 mg 01/10/24 09:00 01/11/24 12:01 Buspirone Hcl 10 Mg Tablet PO 10 mg TID TIFFANY Administration Dextrose 12.5 gm 01/10/24 16:44 01/11/24 00:49 Dextrose 50% 25 Gm/50 Ml Syringe IV PUSH 12.5 gm PRN PRN Administration Hypoglycemia Protocol Diclofenac Sodium 1 applic 01/10/24 05:17 01/10/24 15:43 Diclofenac Sodium 1% 100 Gm Gel (*Bkc) TOPICAL 1 applic QID PRN Administration Pain Doxazosin Mesylate 2 mg 01/10/24
--- NOTE | 2024-01-11 15:29 | PM.IMPN ---
Progress Note: A&P Assessment and Plan (1) Abdominal pain: Code(s): R10.9 - Unspecified abdominal pain Status: Acute Assessment and Plan: 01/11/24: Will continue with pain control MRCP was negative Continue IV fluids at 50 mL/hr Advance diet as tolerated (2) Nausea and vomiting: Qualifiers: Vomiting type: unspecified Qualified Code(s): R11.2 - Nausea with vomiting, unspecified Code(s): R11.2 - Nausea with vomiting, unspecified Status: Acute Assessment and Plan: 01/11/24: Continue IV fluids Continue nausea control Continue bowel regimen (3) Transaminitis: Code(s): R74.01 - Elevation of levels of liver transaminase levels Status: Acute Assessment and Plan: 01/11/24: Total bili 2.4, AST 113, ALT 76, alk-phos 277 GI following Nuclear medicine HIDA scan ordered per GI MRCP was negative yesterday. (4) Bacteremia: Code(s): R78.81 - Bacteremia Status: Acute Assessment and Plan: 01/11/24: Staphylococcus epidermidis on 12/29/23 blood cultures Continue Bactrim New Blood culture showing no growth to date on preliminary read Time Spent With Patient Time with patient: Greater than 35 minutes Subjective Date/time seen: 01/11/24 15:29 Interval history: Interval history: This is a 70-year-old female presented to the hospital on 01/10/2024 with complaints of nausea and vomiting. Workup in the hospital included a chest x-ray which shown linear discoid atelectasis in the right midlung zone. Abdomen pelvis CT showed cholelithiasis with chronic mild intrahepatic biliary ductal dilatation a normal caliber common bile duct with no evidence of choledocholithiasis, thyromegaly, marked enlarged fibroid uterus. Head CT you do not show any acute intracranial process, chronic large infarct involving the left mid cerebral artery vascular distribution with smaller old infarcts in the right frontoparietal region and bilateral thalami, stable appearance of moderate scattered white matter hypo attenuation consistent with chronic small vessel ischemic disease. Upper quadrant ultrasound showing cholelithiasis, mild intrahepatic ductal the dictation with no evidence choledocholithiasis within the visualized portion of the normal caliber common bile duct. MRCP showed cholelithiasis, normal common duct no choledocholithiasis. Initial labs shown white blood cell count of 10.9, hemoglobin 10.0, sodium 136, lactic acid 2.2> 0.7, AST 75, ALT 64, alk-phos 200, total CK 251, lipase 968, TSH 0.112, total T3 0.61. UA was obtained and showed 1+ urine protein, trace ketones, trace leukocyte. Respiratory panel was negative for influenza a and B, RSV, COVID. Blood cultures were obtained and are pending, currently no growth to date on preliminary read. EKG reviewed and showing sinus rhythm with a rate of 90, QTC 443. Patient was given a dose of Zosyn, and started on LR at 100 mL/hr. GI was consulted. Subjective: 01/11/24: Patient reporting right flank pain/back pain. Family is at the bedside. Labs and imaging reviewed. Review of Systems Review of Systems: All systems reviewed & are unremarkable except as noted in HPI and below Constitutional: Constitutional: Reports as per HPI and Reports no additional constitutional complaints Eyes: Eyes: Reports as per HPI and Reports no additional eye complaints ENT: Reports system reviewed and no additional complaints, except as documented and Reports as per HPI Cardiovascular: Cardiovascular: Reports as per HPI and Reports no additional cardiovascular complaints Respiratory: Respiratory: Reports as per HPI and Reports no additional respiratory complaints Gastrointestinal: Gastrointestinal: Reports as per HPI and Reports no additional gastrointestinal complaints Genitourinary: Genitourinary: Reports no additional female genitourinary complaints and Reports as per HPI Musculoskeletal: Musculoskeletal: Reports no a
[2024-01-11 18:39] LABS: Glucose Point of Care 118 mg/dl (65-105)
[2024-01-11 20:00] VITALS: PULSE 97; RESP 22; O2SAT 97
[2024-01-11] MEDS: ATORVASTATIN 40 MG TABLET 80 MG PO (20:28)
[2024-01-11] MEDS: MIRTAZAPINE 15 MG TABLET PO (20:28)
[2024-01-11] MEDS: SENNA/DOCUSATE SODIUM TABLET 1 TAB PO (20:28)
[2024-01-11] MEDS: DOXAZOSIN MESYLATE 2 MG TABLET PO (20:28)
[2024-01-11 21:55] VITALS: BP 161/144; PULSE 82; RESP 14; TEMP 37.6; O2SAT 90
[2024-01-12 00:19] LABS: Glucose Point of Care 112 mg/dl (65-105)
[2024-01-12] MEDS: DEXTROSE 10% 1,000 ML 50 ML IV CONT ×2 (01:26→22:13)
[2024-01-12] MEDS: LEVOTHYROXINE SODIUM 12.5 MCG TABLET 37.5 MCG PO (05:29)
[2024-01-12 06:00] VITALS: BP 116/66; PULSE 67; RESP 14; TEMP 37.3; O2SAT 93
[2024-01-12 07:16] LABS: Basophils Percent Auto 0.5 % (0.2-1.2); Eosinophils Absolute Auto 0.1 K/mm3 (0-0.3); Eosinophils Percent Auto 1.1 % (0-4.4); Hematocrit 24.9 % (37.0-47.0); Hemoglobin 8.2 g/dL (12.0-15.0); Immature Granulocyte Absolute 0.02 K/mm3 (0.00-0.031); Immature Granulocyte Percent A 0.3 % (0-0.5); Lymphocytes Percent Auto 10.8 % (18.3-44.2); Mean Corpuscular HGB Conc 32.9 g/dl (32-36); Mean Corpuscular Hemoglobin 29.8 pg (26-34); Mean Corpuscular Volume 90.5 fl (80-100); Mean Platelet Volume 9.7 fl (7.4-10.4); Monocytes Absolute Auto 1.1 K/mm3 (0.1-0.6); Monocytes Percent Auto 16.5 % (2.6-8.5); Neutrophils Absolute Auto 4.6 K/mm3 (1.3-6.7); Neutrophils Percent Auto 70.8 % (45.5-73.1); Platelet Count Result 230 k/mm3 (150-375); Red Blood Count 2.75 M/mm3 (4.2-5.4); Red Cell Distribution Width 14.4 % (11.5-14.5); White Blood Count 6.5 K/mm3 (4.5-10.0)
[2024-01-12 07:27] LABS: Alanine Aminotransferase 102 U/L (6-35); Albumin Level 2.9 g/dL (3.5-5.1); Alkaline Phosphatase 355 U/L (38-126); Anion Gap 7 mmol/L (4-12); Aspartate Amino Transferase 173 U/L (14-36); Bilirubin,Total 2.1 mg/dL (0.2-1.3); Blood Urea Nitrogen 7 mg/dL (7-17); Calcium 8.8 mg/dL (8.4-10.2); Carbon Dioxide 25 mmol/L (22-30); Chloride 105 mmol/L (98-107); Estimated CRCL calculation 47 ml/min; Estimated Glomerular Filt Rate > 60; Glucose 101 mg/dL (65-110); Lipase 1219 U/L (23-300); Magnesium 1.9 mg/dL (1.6-2.3); Potassium 3.3 mmol/L (3.4-5.0); Sodium 137 mmol/L (137-145)
[2024-01-12 07:45] LABS: Glucose Point of Care 107 mg/dl (65-105)
[2024-01-12] MEDS: CHOLECALCIFEROL 1,000 UNITS TABLET 1000 UNITS PO (08:56)
[2024-01-12] MEDS: SULFAMETHOXAZOLE/TRIMETHOPRIM 800/160 MG DS TABLET 1 TAB PO ×2 (08:56→22:12)
[2024-01-12] MEDS: busPIRone HCL 10 MG TABLET PO ×3 (08:56→16:05)
[2024-01-12] MEDS: amLODIPine BESYLATE 10 MG TABLET PO (08:56)
[2024-01-12] MEDS: FERROUS SULFATE 325 MG TABLET DR BY MOUTH (08:56)
[2024-01-12] MEDS: MULTIVITAMINS THERAPEUTIC TAB (*BKC) 1 TABLET PO (08:56)
[2024-01-12] MEDS: ENOXAPARIN 40 MG/0.4 ML SYRINGE SUB-Q (08:57)
[2024-01-12] MEDS: polyethylene glycoL 3350 17 GM POWD.PACK PO (08:57)
--- NOTE | 2024-01-12 09:20 | PM.IMPN ---
Progress Note: A&P Assessment and Plan (1) Abdominal pain: Code(s): R10.9 - Unspecified abdominal pain Status: Acute Assessment and Plan: 01/11/24: Will continue with pain control MRCP was negative Continue IV fluids at 50 mL/hr Advance diet as tolerated 01/12/24: No change to current treatment plan (2) Nausea and vomiting: Qualifiers: Vomiting type: unspecified Qualified Code(s): R11.2 - Nausea with vomiting, unspecified Code(s): R11.2 - Nausea with vomiting, unspecified Status: Acute Assessment and Plan: 01/11/24: Continue IV fluids Continue nausea control Continue bowel regimen 01/12/24: No change her treatment plan (3) Transaminitis: Code(s): R74.01 - Elevation of levels of liver transaminase levels Status: Acute Assessment and Plan: 01/11/24: Total bili 2.4, AST 113, ALT 76, alk-phos 277 GI following Nuclear medicine HIDA scan ordered per GI MRCP was negative yesterday. 01/12/24: HIDA scan ordered GI following Total bili 2.1, AST 173, ALT 102, alk-phos 350, lipase 1219 General surgery consulted however family is wanting more conservative care versus invasive procedures. Continue pain control (4) Bacteremia: Code(s): R78.81 - Bacteremia Status: Acute Assessment and Plan: 01/11/24: Staphylococcus epidermidis on 12/29/23 blood cultures Continue Bactrim New Blood culture showing no growth to date on preliminary read 01/12/24: Blood culture showing no growth to date on preliminary Continue back Time Spent With Patient Time with patient: Greater than 35 minutes Subjective Date/time seen: 01/12/24 09:20 Interval history: Interval history: This is a 70-year-old female presented to the hospital on 01/10/2024 with complaints of nausea and vomiting. Workup in the hospital included a chest x-ray which shown linear discoid atelectasis in the right midlung zone. Abdomen pelvis CT showed cholelithiasis with chronic mild intrahepatic biliary ductal dilatation a normal caliber common bile duct with no evidence of choledocholithiasis, thyromegaly, marked enlarged fibroid uterus. Head CT you do not show any acute intracranial process, chronic large infarct involving the left mid cerebral artery vascular distribution with smaller old infarcts in the right frontoparietal region and bilateral thalami, stable appearance of moderate scattered white matter hypo attenuation consistent with chronic small vessel ischemic disease. Upper quadrant ultrasound showing cholelithiasis, mild intrahepatic ductal the dictation with no evidence choledocholithiasis within the visualized portion of the normal caliber common bile duct. MRCP showed cholelithiasis, normal common duct no choledocholithiasis. Initial labs shown white blood cell count of 10.9, hemoglobin 10.0, sodium 136, lactic acid 2.2> 0.7, AST 75, ALT 64, alk-phos 200, total CK 251, lipase 968, TSH 0.112, total T3 0.61. UA was obtained and showed 1+ urine protein, trace ketones, trace leukocyte. Respiratory panel was negative for influenza a and B, RSV, COVID. Blood cultures were obtained and are pending, currently no growth to date on preliminary read. EKG reviewed and showing sinus rhythm with a rate of 90, QTC 443. Patient was given a dose of Zosyn, and started on LR at 100 mL/hr. GI was consulted. Subjective: 01/12/24: Patient is awake alert. Family is at the bedside. Patient denies any abdominal pain today. Labs and imaging reviewed. Review of Systems Review of Systems: All systems reviewed & are unremarkable except as noted in HPI and below Constitutional: Constitutional: Reports as per HPI and Reports no additional constitutional complaints Eyes: Eyes: Reports as per HPI and Reports no additional eye complaints ENT: Reports system reviewed and no additional complaints, except as documented and Reports as per HPI Cardiovascular: Cardiovascular: Repor
--- NOTE | 2024-01-12 10:27 | WPDGIPROGNO ---
Progress Note: A&P Assessment and Plan (1) Elevated LFTs: Code(s): R79.89 - Other specified abnormal findings of blood chemistry Status: Acute Assessment and Plan: bili ~ 2 with MRCP that showed normal bile duct cholelithiasis, possible GS pancreatitis she is poor candidate for surgery (this also was explained to family yesterday), pending hida scan full diet trend liver enzymes, could be elevated due to pancreatitis- if continue to rise then consult surgery (2) Abdominal pain: Code(s): R10.9 - Unspecified abdominal pain Status: Acute Assessment and Plan: seems comfortable today (3) Pancreatitis: Qualifiers: Acute pancreatitis complication: unspecified Chronicity: acute Pancreatitis type: unspecified pancreatitis type Qualified Code(s): K85.90 - Acute pancreatitis without necrosis or infection, unspecified Code(s): K85.90 - Acute pancreatitis without necrosis or infection, unspecified Status: Acute (4) Cholelithiasis: Qualifiers: Cholecystitis presence: without cholecystitis Code(s): K80.20 - Calculus of gallbladder without cholecystitis without obstruction Status: Acute (5) Dementia: Code(s): F03.90 - Unspecified dementia, unspecified severity, without behavioral disturbance, psychotic disturbance, mood disturbance, and anxiety Status: Acute Subjective Date/time seen: 01/12/24 10:27 Interval history: still poor appetite, difficult to get much from her she seems comfortable and is talking to me but not making sense (baseline), she did not seem uncomfortable when I put pressure on her abdomen Review of Systems Review of Systems: All systems reviewed & are unremarkable except as noted in HPI and below Exam Const: General: no acute distress Other: thin, frail HENMT: Face/Nose/Sinus: Normal nares present Eyes: General: appearance normal, both eyes and all related structures Neck: Neck: supple Resp: Auscultation: clear to auscultation bilaterally Cardio: Rate: regular rate Rhythm: regular rhythm GI: Inspection: non-distended GI Palp: Yes Soft to palpation and No Guarding due to palpation present (GI) Auscultation: normal bowel sounds Skin: General skin exam: normal color Neuro: Speech: normal speech Other: confused Extrem: General: normal to inspection Objective Data Vital Signs Vital Signs: Vital Signs - 24 hr 01/11/24 14:00 01/11/24 20:00 01/11/24 21:55 Temperature 99.7 F H 99.7 F H Pulse Rate 97 97 82 Respiratory Rate 22 H 22 H 14 Blood Pressure 109/58 L 161/144 H Pulse Oximetry 97 97 90 Oxygen Delivery Room Air 01/12/24 06:00 Temperature 99.2 F Pulse Rate 67 Respiratory Rate 14 Blood Pressure 116/66 Pulse Oximetry 93 Oxygen Delivery Intake/Output Intake/Output: Intake & Output 01/09/24 01/10/24 01/11/24 01/12/24 23:59 23:59 23:59 23:59 Intake Total 1000 2150.0 1000 1000 Output Total 1000 2250 300 Balance 1000 1150.0 -1250 700 Meds/Results Medications: Active Medications Generic Name Dose Route Start Last Admin Trade Name Freq PRN Reason Stop Dose Admin Acetaminophen 650 mg 01/10/24 05:17 01/11/24 14:07 Acetaminophen 325 Mg Tablet PO 650 mg TID PRN Administration Pain Rated 5 or Less Amlodipine Besylate 10 mg 01/10/24 09:00 01/12/24 08:56 Amlodipine Besylate 10 Mg Tablet PO 10 mg DAILY TIFFANY Administration Atorvastatin Calcium 80 mg 01/10/24 21:00 01/11/24 20:28 Atorvastatin 40 Mg Tablet PO 80 mg HS TIFFANY Administration Buspirone HCl 10 mg 01/10/24 09:00 01/12/24 08:56 Buspirone Hcl 10 Mg Tablet PO 10 mg TID TIFFANY Administration Dextrose 12.5 gm 01/10/24 16:44 01/11/24 00:49 Dextrose 50% 25 Gm/50 Ml Syringe IV PUSH 12.5 gm PRN PRN Administration Hypoglycemia Protocol Diclofenac Sodium 1 applic 01/10/24 05:17 01/10/24 15:43 Diclofenac Sodium 1% 100 Gm Gel (*Bkc
--- NOTE | 2024-01-12 13:15 | WPDCN ---
Assessment and Plan Assessment and plan (1) Elevated LFTs: Code(s): R79.89 - Other specified abnormal findings of blood chemistry Status: Acute Assessment and Plan: Patient has mild elevations of her liver enzymes. Continue to trend for now. Imaging shows no obvious evidence of common bile duct stone on abdominal ultrasound, CT scan, and MRCP. (2) Pancreatitis: Qualifiers: Acute pancreatitis complication: unspecified Chronicity: acute Pancreatitis type: unspecified pancreatitis type Qualified Code(s): K85.90 - Acute pancreatitis without necrosis or infection, unspecified Code(s): K85.90 - Acute pancreatitis without necrosis or infection, unspecified Status: Acute Assessment and Plan: Appears to have acute pancreatitis possibly on the basis of biliary origin. However no common bile duct stone is seen at this time but she may have passed a stone. Continue supportive management. (3) Cholelithiasis: Qualifiers: Cholecystitis presence: without cholecystitis Code(s): K80.20 - Calculus of gallbladder without cholecystitis without obstruction Status: Acute Assessment and Plan: Patient has gallstones without evidence of acute cholecystitis. She more than likely has some chronic cholecystitis. The patient has had a prior stroke and resides in a [place] [facility]. She has pretty severe dementia. She also has contractures of the hips and knees. I think she is a very poor candidate to try to perform a cholecystectomy laparoscopically or open. If she were developed acute cholecystitis then I would recommend management with placement of a cholecystostomy tube by Interventional Radiology. I discussed this all with the patient's family at the bedside. They agree that the patient is a poor candidate for any type of surgery and that any urgent emergent surgery would be very high risk. HPI Data of Consult Date/Time: 01/12/24 13:15 Requesting Physician: Delfino Cardona MD Primary Care Provider: Jona RetanaMD Consult Narrative Reason for consult: Cholelithiasis, elevated liver enzymes, pancreatitis Narrative: Jeane Villagomez is a 78 year old female admitted to the hospital with appears to be pancreatitis possibly due to biliary origin. She had episodes of nausea vomiting at the [place] [facility] and having upper abdominal pain. She was admitted to the hospital and was found to have elevated lipase consistent with pancreatitis. Elevated liver enzymes as well and workup with CT scan of the abdomen pelvis, abdominal ultrasound, and MRCP showed no obvious evidence of retained common bile duct stone. Liver enzymes slightly increased over time and current total bilirubin is 2.1. AST, ALT, and alkaline phosphatase are only mildly elevated. No evidence of acute cholecystitis seen on imaging. Patient's daughters are at the bedside. Patient lives at a [place] [facility] and is responsive but seems to have at least moderate dementia. Review of Systems Review of Systems: The remainder of the review of systems to include constitutional, HEENT, cardiovascular, respiratory, GI, , integumentary, musculoskeletal, endocrine, immunologic, hematologic, psychiatric, and neurologic are all negative except for which is mentioned above in the HPI. FORMERLY [facility], [facility] Past Medical History Medical History Anemia Anxiety Cerebrovascular accident Chronic indwelling Elias catheter Degenerative disc disease Dementia Hyperlipidemia Hypertension Hypothyroidism Neurogenic bladder Osteoarthritis Seizure disorder Uterine fibroid Surgical History Surgical History History of section Family History Family History Unknown Unknown family medical history Social History Social History (Reviewed 01/12/24 @ 13:19 by Amarjit Castillo
[2024-01-12 14:00] VITALS: BP 112/64; PULSE 64; RESP 16; TEMP 36.7; O2SAT 93
[2024-01-12 19:25] LABS: Glucose Point of Care 115 mg/dl (65-105)
[2024-01-12] MEDS: traMADol HCL (*CRX) 25 MG TABLET PO (19:56)
[2024-01-12 22:00] VITALS: BP 113/36; PULSE 93; RESP 18; TEMP 37.6; O2SAT 97
[2024-01-12] MEDS: ATORVASTATIN 40 MG TABLET 80 MG PO (22:11)
[2024-01-12] MEDS: DOXAZOSIN MESYLATE 2 MG TABLET PO (22:12)
[2024-01-12] MEDS: SENNA/DOCUSATE SODIUM TABLET 1 TAB PO (22:12)
[2024-01-12] MEDS: MIRTAZAPINE 15 MG TABLET PO (22:13)
[2024-01-13 00:13] LABS: Glucose Point of Care 107 mg/dl (65-105)
[2024-01-13 06:00] VITALS: BP 108/55; PULSE 86; RESP 16; TEMP 36.1; O2SAT 94
[2024-01-13] MEDS: LEVOTHYROXINE SODIUM 12.5 MCG TABLET 37.5 MCG PO (06:12)
[2024-01-13 06:27] LABS: Glucose Point of Care 110 mg/dl (65-105)
[2024-01-13 06:32] LABS: Basophils Percent Auto 0.3 % (0.2-1.2); Eosinophils Absolute Auto 0.1 K/mm3 (0-0.3); Eosinophils Percent Auto 1.4 % (0-4.4); Hematocrit 24.8 % (37.0-47.0); Hemoglobin 8.1 g/dL (12.0-15.0); Immature Granulocyte Absolute 0.06 K/mm3 (0.00-0.031); Lymphocytes Absolute Auto 0.84 K/mm3 (0.9-3.2); Lymphocytes Percent Auto 13.3 % (18.3-44.2); Mean Corpuscular HGB Conc 32.7 g/dl (32-36); Mean Corpuscular Hemoglobin 29.1 pg (26-34); Mean Corpuscular Volume 89.2 fl (80-100); Mean Platelet Volume 9.7 fl (7.4-10.4); Monocytes Percent Auto 15.1 % (2.6-8.5); Neutrophils Absolute Auto 4.4 K/mm3 (1.3-6.7); Neutrophils Percent Auto 68.9 % (45.5-73.1); Platelet Count Result 226 k/mm3 (150-375); Red Blood Count 2.78 M/mm3 (4.2-5.4); Red Cell Distribution Width 14.2 % (11.5-14.5); White Blood Count 6.3 K/mm3 (4.5-10.0)
[2024-01-13 06:50] LABS: Alanine Aminotransferase 114 U/L (6-35); Albumin Level 2.8 g/dL (3.5-5.1); Alkaline Phosphatase 399 U/L (38-126); Anion Gap 8 mmol/L (4-12); Aspartate Amino Transferase 178 U/L (14-36); Bilirubin,Total 2.6 mg/dL (0.2-1.3); Blood Urea Nitrogen 9 mg/dL (7-17); Calcium 8.4 mg/dL (8.4-10.2); Carbon Dioxide 24 mmol/L (22-30); Chloride 103 mmol/L (98-107); Estimated CRCL calculation 47 ml/min; Estimated Glomerular Filt Rate > 60; Glucose 105 mg/dL (65-110); Lipase 756 U/L (23-300); Magnesium 1.9 mg/dL (1.6-2.3); Potassium 3.2 mmol/L (3.4-5.0); Sodium 135 mmol/L (137-145)
[2024-01-13] MEDS: MULTIVITAMINS THERAPEUTIC TAB (*BKC) 1 TABLET PO (08:08)
[2024-01-13] MEDS: CHOLECALCIFEROL 1,000 UNITS TABLET 1000 UNITS PO (08:08)
[2024-01-13] MEDS: busPIRone HCL 10 MG TABLET PO ×2 (08:08→13:51)
[2024-01-13] MEDS: amLODIPine BESYLATE 10 MG TABLET PO (08:08)
[2024-01-13] MEDS: FERROUS SULFATE 325 MG TABLET DR BY MOUTH (08:08)
[2024-01-13] MEDS: polyethylene glycoL 3350 17 GM POWD.PACK PO (08:08)
[2024-01-13] MEDS: ENOXAPARIN 40 MG/0.4 ML SYRINGE SUB-Q (08:09)
--- NOTE | 2024-01-13 10:43 | WPDPN ---
Progress Note: A&P Assessment and Plan (1) Elevated LFTs: Code(s): R79.89 - Other specified abnormal findings of blood chemistry Status: Acute Assessment and Plan: Liver enzymes slightly higher today. Total bili was down to 2.6. Raises the question of whether she could have a retained common bile duct stone despite all the imaging same that she does not. GI to decide whether she is a candidate for possible ERCP. (2) Cholelithiasis: Qualifiers: Cholecystitis presence: without cholecystitis Code(s): K80.20 - Calculus of gallbladder without cholecystitis without obstruction Status: Acute Assessment and Plan: Patient is a very poor candidate for a cholecystectomy either open or laparoscopic. If the gallbladder has to be decompressed I would recommend a image guided cholecystostomy tube be placed by the radiologist. There is no clear picture that she has acute cholecystitis at this time. Subjective Date/time seen: 01/13/24 10:43 Interval history: Patient is sleeping this morning. No acute changes overnight. Liver enzymes are stable to slightly higher. Total bilirubin is now up to 2.6 from 2.1. Exam GI: Other: Mild tenderness to palpation epigastric region. No peritoneal signs. Extrem: Other: Contractures at the knees and the hips. Objective Data Vital Signs Vital Signs: Vital Signs - 24 hr 01/12/24 14:00 01/12/24 22:00 01/12/24 20:00 Temperature 36.7 C 37.6 C H Pulse Rate 64 93 Respiratory Rate 16 18 Blood Pressure 112/64 113/36 L Pulse Oximetry 93 97 Oxygen Delivery Room Air 01/13/24 06:00 Temperature 36.1 C L Pulse Rate 86 Respiratory Rate 16 Blood Pressure 108/55 L Pulse Oximetry 94 Oxygen Delivery Intake/Output Intake/Output: Intake & Output 01/10/24 01/11/24 01/12/24 01/13/24 23:59 23:59 23:59 23:59 Intake Total 2150.0 1000 2065 Output Total 1000 2250 410 1100 Balance 1150.0 -1250 1655 -1100 Meds/Results Medications: Active Medications Generic Name Dose Route Start Last Admin Trade Name Freq PRN Reason Stop Dose Admin Acetaminophen 650 mg 01/10/24 05:17 01/11/24 14:07 Acetaminophen 325 Mg Tablet PO 650 mg TID PRN Administration Pain Rated 5 or Less Amlodipine Besylate 10 mg 08/22/24 09:00 01/13/24 08:08 Amlodipine Besylate 10 Mg Tablet PO 10 mg DAILY TIFFANY Administration Atorvastatin Calcium 80 mg 01/10/24 21:00 01/12/24 22:11 Atorvastatin 40 Mg Tablet PO 80 mg HS TIFFANY Administration Buspirone HCl 10 mg 01/10/24 09:00 01/13/24 08:08 Buspirone Hcl 10 Mg Tablet PO 10 mg TID TIFFANY Administration Dextrose 12.5 gm 01/10/24 16:44 01/11/24 00:49 Dextrose 50% 25 Gm/50 Ml Syringe IV PUSH 12.5 gm PRN PRN Administration Hypoglycemia Protocol Diclofenac Sodium 1 applic 01/10/24 05:17 01/10/24 15:43 Diclofenac Sodium 1% 100 Gm Gel (*[facility]) TOPICAL 1 applic QID PRN Administration Pain Doxazosin Mesylate 2 mg 01/10/24 21:00 01/12/24 22:12 Doxazosin Mesylate 2 Mg Tablet PO 2 mg HS TIFFANY Administration Enoxaparin Sodium 40 mg 01/11/24 09:00 01/13/24 08:09 Enoxaparin 40 Mg/0.4 Ml Syringe SUB-Q 40 mg DAILY TIFFANY Administration Ferrous Sulfate 325 mg 01/10/24 09:00 01/13/24 08:08 Ferrous Sulfate [address] BY MOUTH 325 mg DAILY TIFFANY Administration Glucagon 1 mg 01/10/24 16:44 Glucagon For Inj 1 Mg Vial IM PRN PRN Hypoglycemia Protocol Glucose 15 gm 01/10/24 16:44 Glucose Oral Gel 15 Gm Of Glucse In 37.5 Gm Tube PO PRN PRN Hypoglycemia Protocol Dextrose 1,000 mls @ 100 mls/hr 01/10/24 16:44 Dextrose 5% 1,000 Ml IVPB PRN PRN Hypoglycemia Protocol Dextrose 1,000 mls @ 50 mls/hr 01/11/24 05:05 01/12/24 22:13 Dextrose 10% IV CONT 50 mls/hr .Q20H TIFFANY Administration Levothyroxine Sodium 37.5 mcg 01/10/24 06:30 01/13/24 06:12
--- NOTE | 2024-01-13 13:10 | PM.IMPN ---
Progress Note: A&P Assessment and Plan (1) Abdominal pain: Code(s): R10.9 - Unspecified abdominal pain Status: Acute Assessment and Plan: MRCP was negative --too somnolent to eat today --Follow intake, may need a feeding tube, consult dietary --Pain control --Continue IV fluids (2) Nausea and vomiting: Qualifiers: Vomiting type: unspecified Qualified Code(s): R11.2 - Nausea with vomiting, unspecified Code(s): R11.2 - Nausea with vomiting, unspecified Status: Acute Assessment and Plan: Continue IV fluids, antiemetics, bowl regimen prn (3) Transaminitis: Code(s): R74.01 - Elevation of levels of liver transaminase levels Status: Acute Assessment and Plan: 01/11/24: Total bili 2.4, AST 113, ALT 76, alk-phos 277 GI following Nuclear medicine HIDA scan ordered per GI MRCP was negative yesterday. 01/12/24: HIDA scan ordered GI following Total bili 2.1, AST 173, ALT 102, alk-phos 350, lipase 1219 General surgery consulted however family is wanting more conservative care versus invasive procedures. Continue pain control 01/13/24: GI following General surgery consulted--patient is not a surgical candiate. Would need a cholestostomy tube if intervention needed Total bili 2.7, AST 169, ALT 111, Alk phos 412, lipase 1219 Continue pain control (4) Bacteremia: Code(s): R78.81 - Bacteremia Status: Acute Assessment and Plan: Staphylococcus epidermidis on 12/29/23 blood cultures. Continue Bactrim. 01/08 blood cultures x2 no growth. (5) Somnolence: Code(s): R40.0 - Somnolence Status: Acute Assessment and Plan: Bilirubin more elevated but ammonia normal. Likely metabolic --Follow mental status, may need a dobhoff Time Spent With Patient Time: 38 minutes Subjective Date/time seen: 01/13/24 13:10 Interval history: Still very somnolent today. LFT's trending up Family at bedside agree with DNR/DNI,but ok with ICU level of care if needed and vasopressors. Interventions as needed. Discussed NG tube if needed for meds and continues to be somnolent. Review of Systems Review of Systems: Somnolent Exam Narrative: General: Sleeping, Lying in bed in no acute distress ENT: Mouth dry Cardiac: Normal S1 and S2. No murmur, gallops or friction rubs, peripheral pulses intact. Respiratory: Lungs clear to auscultation, no adventitious lung sounds, currently on room air Gastrointestinal: soft, non-distended, non-tender, normoactive bowel sounds. : cohn catheter in place Neuro: Oriented x0, opens eyes rarely, mildly painful stimuli Objective Data Vital Signs Vital Signs: Vital Signs - 24 hr 01/12/24 14:00 01/12/24 22:00 01/12/24 20:00 Temperature 98.0 F 99.7 F H Pulse Rate 64 93 Respiratory Rate 16 18 Blood Pressure 112/64 113/36 L Pulse Oximetry 93 97 Oxygen Delivery Room Air 01/13/24 06:00 Temperature 97 F L Pulse Rate 86 Respiratory Rate 16 Blood Pressure 108/55 L Pulse Oximetry 94 Oxygen Delivery Intake/Output Intake/Output: Intake & Output 01/10/24 01/11/24 01/12/24 01/13/24 23:59 23:59 23:59 23:59 Intake Total 2150.0 1000 2065 Output Total 1000 2250 410 1100 Balance 1150.0 -1250 1655 -1100 Meds/Results Medications: Active Medications Generic Name Dose Route Start Last Admin Trade Name Freq PRN Reason Stop Dose Admin Acetaminophen 650 mg 01/10/24 05:17 01/11/24 14:07 Acetaminophen 325 Mg Tablet PO 650 mg TID PRN Administration Pain Rated 5 or Less Amlodipine Besylate 10 mg 01/10/24 09:00 01/13/24 08:08 Amlodipine Besylate 10 Mg Tablet PO 10 mg DAILY TIFFANY Administration Atorvastatin Calcium 80 mg 01/10/24 21:00 01/12/24 22:11 Atorvastatin 40 Mg Tablet PO 80 mg HS TIFFANY Administration Buspirone HCl 10 mg 01/10/24 09:00 01/13/24 08:08 Buspirone Hcl 10 Mg Tablet PO 10 mg TID TIFFANY Admi
[2024-01-13] MEDS: POTASSIUM CHLORIDE INJ 40 MEQ in SODIUM CHLORIDE 0.9% IV 500 ML 130 MEQ IVPB (13:51)
[2024-01-13 14:00] VITALS: BP 132/78; PULSE 69; RESP 18; TEMP 36.6; O2SAT 97
--- NOTE | 2024-01-13 14:29 | WPDGIPROGNO ---
Progress Note: A&P Assessment and Plan (1) Elevated LFTs: Code(s): R79.89 - Other specified abnormal findings of blood chemistry Status: Acute Assessment and Plan: I think that she has GS pancreatitis She will be poor candidate for surgery and even ERCP, no evidence of stone in bile duct with MRCP revealing only cholelithiasis and normal size bile duct elevated liver enzymes could be elevated due to pancreatitis (2) Abdominal pain: Code(s): R10.9 - Unspecified abdominal pain Status: Acute Assessment and Plan: she is not eating much, she is just sleeping (3) Cholelithiasis: Qualifiers: Cholecystitis presence: without cholecystitis Code(s): K80.20 - Calculus of gallbladder without cholecystitis without obstruction Status: Acute Assessment and Plan: poor surgical candidate (4) Pancreatitis: Qualifiers: Acute pancreatitis complication: unspecified Chronicity: acute Pancreatitis type: unspecified pancreatitis type Qualified Code(s): K85.90 - Acute pancreatitis without necrosis or infection, unspecified Code(s): K85.90 - Acute pancreatitis without necrosis or infection, unspecified Status: Acute (5) Dementia: Code(s): F03.90 - Unspecified dementia, unspecified severity, without behavioral disturbance, psychotic disturbance, mood disturbance, and anxiety Status: Acute Subjective Date/time seen: 01/13/24 14:29 Interval history: no changes, she is just sleeping family members at bedside Review of Systems Review of Systems: All systems reviewed & are unremarkable except as noted in HPI and below Exam Const: General: no acute distress Other: thin, frail HENMT: Face/Nose/Sinus: Normal nares present Eyes: General: appearance normal, both eyes and all related structures Neck: Neck: supple Resp: Auscultation: clear to auscultation bilaterally Cardio: Rate: regular rate Rhythm: regular rhythm GI: GI Palp: Yes Soft to palpation and No Guarding due to palpation present (GI) Auscultation: normal bowel sounds Skin: General skin exam: normal color Neuro: Other: confused, contractures + Extrem: General: normal to inspection Psych: Other: unable to assess Objective Data Vital Signs Vital Signs: Vital Signs - 24 hr 01/12/24 22:00 01/12/24 20:00 01/13/24 06:00 Temperature 99.7 F H 97 F L Pulse Rate 93 86 Respiratory Rate 18 16 Blood Pressure 113/36 L 108/55 L Pulse Oximetry 97 94 Oxygen Delivery Room Air Intake/Output Intake/Output: Intake & Output 01/10/24 01/11/24 01/12/24 01/13/24 23:59 23:59 23:59 23:59 Intake Total 2150.0 1000 2065 Output Total 1000 2250 410 1100 Balance 1150.0 -1250 1655 -1100 Meds/Results Medications: Active Medications Generic Name Dose Route Start Last Admin Trade Name Freq PRN Reason Stop Dose Admin Acetaminophen 650 mg 01/10/24 05:17 01/11/24 14:07 Acetaminophen 325 Mg Tablet PO 650 mg TID PRN Administration Pain Rated 5 or Less Amlodipine Besylate 10 mg 01/10/24 09:00 01/13/24 08:08 Amlodipine Besylate 10 Mg Tablet PO 10 mg DAILY TIFFANY Administration Atorvastatin Calcium 80 mg 01/10/24 21:00 01/12/24 22:11 Atorvastatin 40 Mg Tablet PO 80 mg HS TIFFANY Administration Buspirone HCl 10 mg 01/10/24 09:00 01/13/24 13:51 Buspirone Hcl 10 Mg Tablet PO 10 mg TID TIFFANY Administration Dextrose 12.5 gm 01/10/24 16:44 01/11/24 00:49 Dextrose 50% 25 Gm/50 Ml Syringe IV PUSH 12.5 gm PRN PRN Administration Hypoglycemia Protocol Diclofenac Sodium 1 applic 01/10/24 05:17 01/10/24 15:43 Diclofenac Sodium 1% 100 Gm Gel (*[facility]) TOPICAL 1 applic QID PRN Administration Pain Doxazosin Mesylate 2 mg 01/10/24 21:00 01/12/24 22:12 Doxazosin Mesylate 2 Mg Tablet PO 2 mg HS TIFFANY Administration Enoxaparin Sodium 40 mg 01/11/24 09:00 01/13/24 08:09
[2024-01-13 15:15] LABS: Basophils Percent Auto 0.3 % (0.2-1.2); Eosinophils Absolute Auto 0.1 K/mm3 (0-0.3); Eosinophils Percent Auto 1.5 % (0-4.4); Hematocrit 24.9 % (37.0-47.0); Hemoglobin 8.2 g/dL (12.0-15.0); Immature Granulocyte Absolute 0.07 K/mm3 (0.00-0.031); Lymphocytes Absolute Auto 0.83 K/mm3 (0.9-3.2); Lymphocytes Percent Auto 12.1 % (18.3-44.2); Mean Corpuscular HGB Conc 32.9 g/dl (32-36); Mean Corpuscular Hemoglobin 29.2 pg (26-34); Mean Corpuscular Volume 88.6 fl (80-100); Mean Platelet Volume 9.4 fl (7.4-10.4); Monocytes Absolute Auto 0.9 K/mm3 (0.1-0.6); Monocytes Percent Auto 13.3 % (2.6-8.5); Neutrophils Absolute Auto 4.9 K/mm3 (1.3-6.7); Neutrophils Percent Auto 71.8 % (45.5-73.1); Platelet Count Result 227 k/mm3 (150-375); Red Blood Count 2.81 M/mm3 (4.2-5.4); Red Cell Distribution Width 14.3 % (11.5-14.5); White Blood Count 6.9 K/mm3 (4.5-10.0)
[2024-01-13 15:37] LABS: Alanine Aminotransferase 111 U/L (6-35); Albumin Level 2.6 g/dL (3.5-5.1); Alkaline Phosphatase 412 U/L (38-126); Anion Gap 4 mmol/L (4-12); Aspartate Amino Transferase 169 U/L (14-36); Bilirubin Direct 0.2 mg/dL (0-0.3); Bilirubin,Total 2.7 mg/dL (0.2-1.3); Blood Urea Nitrogen 8 mg/dL (7-17); Calcium 8.5 mg/dL (8.4-10.2); Carbon Dioxide 25 mmol/L (22-30); Chloride 105 mmol/L (98-107); Estimated CRCL calculation 47 ml/min; Estimated Glomerular Filt Rate > 60; Glucose 108 mg/dL (65-110); Magnesium 1.9 mg/dL (1.6-2.3); Potassium 3.3 mmol/L (3.4-5.0); Sodium 134 mmol/L (137-145)
[2024-01-13 15:38] LABS: Ammonia 14 umol/L (9-30); Lactic Acid Reflex 0.9 mmol/L (0.7-2.0)
[2024-01-13 15:44] LABS: Phosphorus 2.6 mg/dL (2.5-4.5)
[2024-01-13 17:54] LABS: Fractional Inspired Oxygen 21 %; HCO3 VBG 21.8 mEq/l (24.0-30.0)
[2024-01-13 18:00] LABS: pH VBG 7.482 (7.300-7.400)
[2024-01-13 18:01] LABS: Device ROOM AIR; PCO2 VBG 29.8 mmHg (42.0-48.0)
[2024-01-13] MEDS: traMADol HCL (*CRX) 25 MG TABLET PO (18:47)
[2024-01-13 20:00] VITALS: PULSE 96; RESP 20; O2SAT 96
[2024-01-13] MEDS: ATORVASTATIN 40 MG TABLET 80 MG PO (20:31)
[2024-01-13] MEDS: SENNA/DOCUSATE SODIUM TABLET 1 TAB PO (20:31)
[2024-01-13] MEDS: MIRTAZAPINE 15 MG TABLET PO (20:31)
[2024-01-13] MEDS: DOXAZOSIN MESYLATE 2 MG TABLET PO (20:31)
[2024-01-13 21:25] VITALS: BP 121/64; PULSE 96; RESP 20; TEMP 37.9; O2SAT 96
[2024-01-14 06:00] VITALS: BP 109/60; PULSE 93; RESP 20; TEMP 37.4; O2SAT 98
[2024-01-14] MEDS: LEVOTHYROXINE SODIUM 12.5 MCG TABLET 37.5 MCG PO (06:07)
[2024-01-14 07:57] LABS: Basophils Percent Auto 0.5 % (0.2-1.2); Eosinophils Absolute Auto 0.1 K/mm3 (0-0.3); Eosinophils Percent Auto 1.8 % (0-4.4); Hematocrit 25.1 % (37.0-47.0); Hemoglobin 8.3 g/dL (12.0-15.0); Immature Granulocyte Absolute 0.07 K/mm3 (0.00-0.031); Immature Granulocyte Percent A 1.1 % (0-0.5); Immature Platelet Fraction Pct 3.3 % (0.9-11.2); Lymphocytes Absolute Auto 0.88 K/mm3 (0.9-3.2); Lymphocytes Percent Auto 13.2 % (18.3-44.2); Mean Corpuscular HGB Conc 33.1 g/dl (32-36); Mean Corpuscular Hemoglobin 30.3 pg (26-34); Mean Corpuscular Volume 91.6 fl (80-100); Mean Platelet Volume 10.6 fl (7.4-10.4); Monocytes Absolute Auto 0.8 K/mm3 (0.1-0.6); Monocytes Percent Auto 11.4 % (2.6-8.5); Neutrophils Absolute Auto 4.8 K/mm3 (1.3-6.7); Platelet Count Result 230 k/mm3 (150-375); Red Blood Count 2.74 M/mm3 (4.2-5.4); Red Cell Distribution Width 14.6 % (11.5-14.5); White Blood Count 6.7 K/mm3 (4.5-10.0)
[2024-01-14 08:41] LABS: Alanine Aminotransferase 117 U/L (6-35); Albumin Level 2.8 g/dL (3.5-5.1); Alkaline Phosphatase 454 U/L (38-126); Anion Gap 7 mmol/L (4-12); Aspartate Amino Transferase 187 U/L (14-36); Bilirubin,Total 3.2 mg/dL (0.2-1.3); Blood Urea Nitrogen 7 mg/dL (7-17); Calcium 8.5 mg/dL (8.4-10.2); Carbon Dioxide 25 mmol/L (22-30); Chloride 105 mmol/L (98-107); Estimated CRCL calculation 47 ml/min; Estimated Glomerular Filt Rate > 60; Glucose 91 mg/dL (65-110); Sodium 137 mmol/L (137-145)
[2024-01-14 08:50] LABS: Platelet Estimate Adequate (Adequate)
[2024-01-14 08:51] LABS: Anisocytosis 1+; Schistocytes None Seen
[2024-01-14] MEDS: MULTIVITAMINS THERAPEUTIC TAB (*BKC) 1 TABLET PO (09:15)
[2024-01-14] MEDS: busPIRone HCL 10 MG TABLET PO ×2 (09:15→18:30)
[2024-01-14] MEDS: polyethylene glycoL 3350 17 GM POWD.PACK PO (09:15)
[2024-01-14] MEDS: CHOLECALCIFEROL 1,000 UNITS TABLET 1000 UNITS PO (09:15)
[2024-01-14] MEDS: FERROUS SULFATE 325 MG TABLET DR BY MOUTH (09:15)
[2024-01-14] MEDS: amLODIPine BESYLATE 10 MG TABLET PO (09:15)
[2024-01-14] MEDS: ENOXAPARIN 40 MG/0.4 ML SYRINGE SUB-Q (09:15)
[2024-01-14 10:17] VITALS: O2SAT 95
--- NOTE | 2024-01-14 11:18 | PM.IMPN ---
Progress Note: A&P Assessment and Plan (1) Abdominal pain: Code(s): R10.9 - Unspecified abdominal pain Status: Acute (2) Nausea and vomiting: Qualifiers: Vomiting type: unspecified Qualified Code(s): R11.2 - Nausea with vomiting, unspecified Code(s): R11.2 - Nausea with vomiting, unspecified Status: Acute (3) Transaminitis: Code(s): R74.01 - Elevation of levels of liver transaminase levels Status: Acute (4) Bacteremia: Code(s): R78.81 - Bacteremia Status: Acute Assessment and Plan: (5) Somnolence: Code(s): R40.0 - Somnolence Status: Acute Plan 78-year-old female with history of stroke, seizures, dementia, hypertension, and hyperlipidemia who presented to the emergency department via EMS from [place] in [place] for evaluation of nausea and vomiting. The patient has dementia and is oriented 1-2 at baseline. In the emergency room labs were significant for white count 10.9, hemoglobin 10.0, sodium 136, potassium 4.4, lactic 2.2, AST 75, ALT 64, alk-phos 200, total CK 251, lipase 968, TSH 0.112, normal T4 1.97, and total T3 0.61. Her urinalysis showed dark yellow clear urine with +1 protein, trace ketones, trace leukocyte Estrace without bacteria or pyuria. Upper respiratory panel was negative for flu, RSV, COVID. Chest x-ray showed linear discoid atelectasis at the right midlung zone that appear unchanged from previous imaging. CT abdomen and pelvis showed cholelithiasis with chronic mild intrahepatic biliary ductal dilatation, thyromegaly, and large fibroid uterus. She then underwent a right upper quadrant ultrasound which showed cholelithiasis and again possible ductal dilatation but now evident choledochal lithiasis. CT head showed no acute intracranial process with known chronic old infarcts. GI was consulted. MRCP was done which was negative, HIDA scan has been ordered. as per General surgery patient is not a surgical candidate, would need a cholecystostomy tube if intervention is needed. 1. Acute pancreatitis: likely gallstone pancreatitis Poor surgical candidate monitor LFTs, elevated total bilirubin today as compared to yesterday await HIDA scan appreciate surgery and GI help pain control IV fluids NPO we will hold statin in setting of elevated LFTs 2. hypertension: Continue with Norvasc 3. history of hypothyroidism: Continue with levothyroxine 4. DVT prophylaxis: Lovenox 5. Code status: DNR 6. Disposition: Pending improvement Time Spent With Patient Time with patient: 15 - 25 minutes Subjective Date/time seen: 01/14/24 11:18 Interval history: no acute events overnight Review of Systems Review of Systems: Somnolent Exam Narrative: General: Sleeping, Lying in bed in no acute distress ENT: Mouth dry Cardiac: Normal S1 and S2. No murmur, gallops or friction rubs, peripheral pulses intact. Respiratory: Lungs clear to auscultation, no adventitious lung sounds, currently on room air Gastrointestinal: soft, non-distended, non-tender, normoactive bowel sounds. : cohn catheter in place Neuro: Oriented x0, opens eyes rarely, mildly painful stimuli Objective Data Vital Signs Vital Signs: Vital Signs - 24 hr 01/13/24 14:00 01/13/24 21:25 01/13/24 20:00 Temperature 97.9 F 100.3 F H Pulse Rate 69 96 96 Respiratory Rate 18 20 20 Blood Pressure 132/78 121/64 Pulse Oximetry 97 96 96 Oxygen Delivery Room Air 01/14/24 06:00 01/14/24 10:17 01/14/24 09:15 Temperature 99.3 F Pulse Rate 93 Respiratory Rate 20 Blood Pressure 109/60 Pulse Oximetry 98 95 Oxygen Delivery Room Air Room Air Intake/Output Intake/Output: Intake & Output 01/11/24 01/12/24 01/13/24 01/14/24 23:59 23:59 23:59 23:59 Intake Total 1000 2065 408.7 0 Output Total 2250 410 1100 1999 Balance -1250 1655 -691.3 -1999 Meds/Results Medications: Active Medications Generic Name Dose
--- NOTE | 2024-01-14 14:59 | WPDGIPROGNO ---
Progress Note: A&P Assessment and Plan (1) Elevated LFTs: Code(s): R79.89 - Other specified abnormal findings of blood chemistry Status: Acute Assessment and Plan: I think that she has GS pancreatitis unfortunately she can not complete HIDA scan as she won't be able to lie still for 2 hours, given persistent elevated bilirubin I will get another MRCP, she will be poor candidate for surgery and even ERCP (only I will consider to do it if abnormal bile duct- GS pancreatitis can explain persistent elevated bili but again she is not fit for surgery) (2) Abdominal pain: Code(s): R10.9 - Unspecified abdominal pain Status: Acute Assessment and Plan: she is not eating much, she is just sleeping (3) Cholelithiasis: Qualifiers: Cholecystitis presence: without cholecystitis Code(s): K80.20 - Calculus of gallbladder without cholecystitis without obstruction Status: Acute Assessment and Plan: poor surgical candidate (4) Pancreatitis: Qualifiers: Acute pancreatitis complication: unspecified Chronicity: acute Pancreatitis type: unspecified pancreatitis type Qualified Code(s): K85.90 - Acute pancreatitis without necrosis or infection, unspecified Code(s): K85.90 - Acute pancreatitis without necrosis or infection, unspecified Status: Acute (5) Dementia: Code(s): F03.90 - Unspecified dementia, unspecified severity, without behavioral disturbance, psychotic disturbance, mood disturbance, and anxiety Status: Acute Assessment and Plan: advanced Subjective Date/time seen: 01/14/24 14:59 Interval history: no changes, she is hardly eating but she has advanced dementia difficult to get anything from here Review of Systems Review of Systems: All systems reviewed & are unremarkable except as noted in HPI and below Exam Const: General: no acute distress Other: thin, frail HENMT: Face/Nose/Sinus: Normal nares present Eyes: General: appearance normal, both eyes and all related structures Neck: Neck: supple Resp: Auscultation: clear to auscultation bilaterally Cardio: Rate: regular rate Rhythm: regular rhythm GI: GI Palp: Yes Soft to palpation and No Guarding due to palpation present (GI) Auscultation: normal bowel sounds Skin: General skin exam: normal color Neuro: Other: confused, contractures + Extrem: General: normal to inspection Psych: Other: unable to assess Objective Data Vital Signs Vital Signs: Vital Signs - 24 hr 01/13/24 21:25 01/13/24 20:00 01/14/24 06:00 Temperature 100.3 F H 99.3 F Pulse Rate 96 96 93 Respiratory Rate 20 20 20 Blood Pressure 121/64 109/60 Pulse Oximetry 96 96 98 Oxygen Delivery Room Air 01/14/24 10:17 01/14/24 09:15 Temperature Pulse Rate Respiratory Rate Blood Pressure Pulse Oximetry 95 Oxygen Delivery Room Air Room Air Intake/Output Intake/Output: Intake & Output 01/11/24 01/12/24 01/13/24 01/14/24 23:59 23:59 23:59 23:59 Intake Total 1000 2065 408.7 20 Output Total 2250 410 1100 1999 [facility]1250 1655 -691.3 -1980 Meds/Results Medications: Active Medications Generic Name Dose Route Start Last Admin Trade Name Freq PRN Reason Stop Dose Admin Acetaminophen 650 mg 01/10/24 05:17 01/11/24 14:07 Acetaminophen 325 Mg Tablet PO 650 mg TID PRN Administration Pain Rated 5 or Less Amlodipine Besylate 10 mg 01/10/24 09:00 01/14/24 09:15 Amlodipine Besylate 10 Mg Tablet PO 10 mg DAILY TIFFANY Administration Atorvastatin Calcium 80 mg 01/10/24 21:00 01/13/24 20:31 Atorvastatin 40 Mg Tablet PO 80 mg HS TIFFANY Administration Buspirone HCl 10 mg 01/10/24 09:00 01/14/24 09:15 Buspirone Hcl 10 Mg Tablet PO 10 mg TID TFIFANY Administration Dextrose 12.5 gm 01/10/24 16:44 01/11/24 00:49 Dextrose 50% 25 Gm/50 Ml Syringe IV PUSH 12.5 gm PRN PRN Administration Hy
[2024-01-14] MEDS: DEXTROSE 10% 1,000 ML 50 ML IV CONT (18:30)
[2024-01-14] MEDS: SENNA/DOCUSATE SODIUM TABLET 1 TAB PO (20:41)
[2024-01-14] MEDS: DOXAZOSIN MESYLATE 2 MG TABLET PO (20:41)
[2024-01-14] MEDS: MIRTAZAPINE 15 MG TABLET PO (20:41)
[2024-01-14 21:02] VITALS: BP 129/64; PULSE 95; RESP 14; TEMP 37.6; O2SAT 99
[2024-01-14 23:19] LABS: Glucose Point of Care 135 mg/dl (65-105)
[2024-01-15 05:14] VITALS: BP 108/64; PULSE 81; RESP 18; TEMP 37.3; O2SAT 98
[2024-01-15 05:38] LABS: Glucose Point of Care 121 mg/dl (65-105)
[2024-01-15] MEDS: LEVOTHYROXINE SODIUM 12.5 MCG TABLET 37.5 MCG PO (05:47)
--- NOTE | 2024-01-15 08:19 | PM.IMPN ---
Progress Note: A&P Assessment and Plan (1) Abdominal pain: Code(s): R10.9 - Unspecified abdominal pain Status: Acute (2) Nausea and vomiting: Qualifiers: Vomiting type: unspecified Qualified Code(s): R11.2 - Nausea with vomiting, unspecified Code(s): R11.2 - Nausea with vomiting, unspecified Status: Acute (3) Transaminitis: Code(s): R74.01 - Elevation of levels of liver transaminase levels Status: Acute (4) Bacteremia: Code(s): R78.81 - Bacteremia Status: Acute Assessment and Plan: (5) Somnolence: Code(s): R40.0 - Somnolence Status: Acute Plan 78-year-old female with history of stroke, seizures, dementia, hypertension, and hyperlipidemia who presented to the emergency department via EMS from [place] in [place] for evaluation of nausea and vomiting. The patient has dementia and is oriented 1-2 at baseline. In the emergency room labs were significant for white count 10.9, hemoglobin 10.0, sodium 136, potassium 4.4, lactic 2.2, AST 75, ALT 64, alk-phos 200, total CK 251, lipase 968, TSH 0.112, normal T4 1.97, and total T3 0.61. Her urinalysis showed dark yellow clear urine with +1 protein, trace ketones, trace leukocyte Estrace without bacteria or pyuria. Upper respiratory panel was negative for flu, RSV, COVID. Chest x-ray showed linear discoid atelectasis at the right midlung zone that appear unchanged from previous imaging. CT abdomen and pelvis showed cholelithiasis with chronic mild intrahepatic biliary ductal dilatation, thyromegaly, and large fibroid uterus. She then underwent a right upper quadrant ultrasound which showed cholelithiasis and again possible ductal dilatation but now evident choledochal lithiasis. CT head showed no acute intracranial process with known chronic old infarcts. GI was consulted. MRCP was done which was negative, HIDA scan has been ordered. as per General surgery patient is not a surgical candidate, would need a cholecystostomy tube if intervention is needed. 1. Acute pancreatitis: likely gallstone pancreatitis Poor surgical candidate monitor LFTs, elevated total bilirubin today as compared to yesterday await HIDA scan appreciate surgery and GI help pain control IV fluids NPO we will hold statin in setting of elevated LFTs 2. hypertension: Continue with Norvasc 3. history of hypothyroidism: Continue with levothyroxine 4. DVT prophylaxis: Lovenox 5. Code status: DNR 6. Disposition: Pending improvement Time Spent With Patient Time: 45 Subjective Date/time seen: 01/15/24 08:19 Interval history: VSS, CBC normal, LFT's trending up. Bilirubin 3.2, AST 187, ALT 117, Alk phos 454 More awake today. Not eating much but more interactive. Spoke with MRI and MRCP unlikely helpful since unable to hold breath and difficulty with positioning. Not a surgical candidate. Review of Systems Review of Systems: Somnolent All systems reviewed & are unremarkable except as noted in HPI and below Constitutional: Constitutional: Reports as per HPI and Reports no additional constitutional complaints Eyes: Eyes: Reports as per HPI and Reports no additional eye complaints ENT: Reports system reviewed and no additional complaints, except as documented and Reports as per HPI Cardiovascular: Cardiovascular: Reports as per HPI and Reports no additional cardiovascular complaints Respiratory: Respiratory: Reports as per HPI and Reports no additional respiratory complaints Gastrointestinal: Gastrointestinal: Reports as per HPI and Reports no additional gastrointestinal complaints Genitourinary: Genitourinary: Reports no additional female genitourinary complaints and Reports as per HPI Musculoskeletal: Musculoskeletal: Reports no additional musculoskeletal complaints and Reports as per HPI Integumentary/Breasts: Skin/Breast: Reports system reviewed and no additional complaints, except as docu a
[2024-01-15] MEDS: FERROUS SULFATE 325 MG TABLET DR BY MOUTH (08:30)
[2024-01-15] MEDS: ENOXAPARIN 40 MG/0.4 ML SYRINGE SUB-Q (08:30)
[2024-01-15] MEDS: MULTIVITAMINS THERAPEUTIC TAB (*BKC) 1 TABLET PO (08:30)
[2024-01-15] MEDS: amLODIPine BESYLATE 10 MG TABLET PO (08:30)
[2024-01-15] MEDS: busPIRone HCL 10 MG TABLET PO (08:30)
[2024-01-15] MEDS: CHOLECALCIFEROL 1,000 UNITS TABLET 1000 UNITS PO (08:30)
[2024-01-15] MEDS: polyethylene glycoL 3350 17 GM POWD.PACK PO (08:30)
[2024-01-15 09:02] LABS: Basophils Percent Auto 0.5 % (0.2-1.2); Eosinophils Absolute Auto 0.1 K/mm3 (0-0.3); Eosinophils Percent Auto 1.6 % (0-4.4); Hemoglobin 7.6 g/dL (12.0-15.0); Immature Granulocyte Absolute 0.06 K/mm3 (0.00-0.031); Immature Granulocyte Percent A 0.9 % (0-0.5); Lymphocytes Absolute Auto 0.89 K/mm3 (0.9-3.2); Lymphocytes Percent Auto 13.9 % (18.3-44.2); Mean Corpuscular Hemoglobin 29.3 pg (26-34); Mean Corpuscular Volume 88.8 fl (80-100); Mean Platelet Volume 9.9 fl (7.4-10.4); Monocytes Absolute Auto 0.6 K/mm3 (0.1-0.6); Monocytes Percent Auto 9.2 % (2.6-8.5); Neutrophils Absolute Auto 4.7 K/mm3 (1.3-6.7); Neutrophils Percent Auto 73.9 % (45.5-73.1); Nucleated Red Blood Cells Perc 0.5 % (0.0-0.2); Platelet Count Result 244 k/mm3 (150-375); Red Blood Count 2.59 M/mm3 (4.2-5.4); Red Cell Distribution Width 14.5 % (11.5-14.5); White Blood Count 6.4 K/mm3 (4.5-10.0)
[2024-01-15 09:25] LABS: Alanine Aminotransferase 99 U/L (6-35); Albumin Level 2.6 g/dL (3.5-5.1); Alkaline Phosphatase 586 U/L (38-126); Anion Gap 6 mmol/L (4-12); Aspartate Amino Transferase 145 U/L (14-36); Bilirubin,Total 2.8 mg/dL (0.2-1.3); Blood Urea Nitrogen 6 mg/dL (7-17); Calcium 8.5 mg/dL (8.4-10.2); Carbon Dioxide 27 mmol/L (22-30); Chloride 104 mmol/L (98-107); Estimated CRCL calculation 54 ml/min; Estimated Glomerular Filt Rate > 60; Glucose 131 mg/dL (65-110); Potassium 3.4 mmol/L (3.4-5.0); Sodium 137 mmol/L (137-145)
[2024-01-15] MEDS: DEXTROSE 10% 1,000 ML 50 ML IV CONT (09:59)
[2024-01-15 10:08] VITALS: BMI 22.6
[2024-01-15 11:35] LABS: Glucose Point of Care 131 mg/dl (65-105)
[2024-01-15 14:00] VITALS: BP 141/77; PULSE 89; RESP 22; TEMP 36.6; O2SAT 98
--- NOTE | 2024-01-15 15:22 | WPDPN ---
Progress Note: A&P Assessment and Plan (1) Cholelithiasis: Qualifiers: Cholecystitis presence: without cholecystitis Code(s): K80.20 - Calculus of gallbladder without cholecystitis without obstruction Status: Acute Assessment and Plan: Patient's liver enzymes are elevated most likely due to pancreatitis. I agree with Gastroenterology that the patient is really not fit for a laparoscopic or open cholecystectomy or ERCP. Continue supportive management for now. Surgery will follow peripherally. Subjective Date/time seen: 01/15/24 15:22 Interval history: Patient clinically stable. No acute changes. Liver enzymes are still elevated. Seen by GI and they feel that the elevated liver enzymes are likely due to her pancreatitis. Exam GI: Other: Abdomen is soft and nondistended. To palpation epigastric region reveals mild tenderness. No peritoneal signs. Objective Data Vital Signs Vital Signs: Vital Signs - 24 hr 01/14/24 21:02 01/15/24 05:14 01/15/24 08:00 Temperature 37.6 C H 37.3 C Pulse Rate 95 81 Respiratory Rate 14 18 Blood Pressure 129/64 108/64 Pulse Oximetry 99 98 Oxygen Delivery Room Air 01/15/24 14:00 Temperature 36.6 C Pulse Rate 89 Respiratory Rate 22 H Blood Pressure 141/77 H Pulse Oximetry 98 Oxygen Delivery Intake/Output Intake/Output: Intake & Output 01/12/24 01/13/24 01/14/24 01/15/24 23:59 23:59 23:59 23:59 Intake Total 2065 1408.7 150 774.2 Output Total 410 1100 2000 1100 Balance 1655 308.7 -1850 -325.8 Meds/Results Medications: Active Medications Generic Name Dose Route Start Last Admin Trade Name Freq PRN Reason Stop Dose Admin Acetaminophen 650 mg 01/10/24 05:17 01/11/24 14:07 Acetaminophen 325 Mg Tablet PO 650 mg TID PRN Administration Pain Rated 5 or Less Amlodipine Besylate 10 mg 01/10/24 09:00 01/15/24 08:30 Amlodipine Besylate 10 Mg Tablet PO 10 mg DAILY TIFFANY Administration Atorvastatin Calcium 80 mg 01/10/24 21:00 01/13/24 20:31 Atorvastatin 40 Mg Tablet PO 80 mg HS TIFFANY Administration Buspirone HCl 10 mg 01/10/24 09:00 01/15/24 08:30 Buspirone Hcl 10 Mg Tablet PO 10 mg TID TIFFANY Administration Dextrose 12.5 gm 01/10/24 16:44 01/11/24 00:49 Dextrose 50% 25 Gm/50 Ml Syringe IV PUSH 12.5 gm PRN PRN Administration Hypoglycemia Protocol Diclofenac Sodium 1 applic 01/10/24 05:17 01/10/24 15:43 Diclofenac Sodium 1% 100 Gm Gel (*Bkc) TOPICAL 1 applic QID PRN Administration Pain Doxazosin Mesylate 2 mg 01/10/24 21:00 01/14/24 20:41 Doxazosin Mesylate 2 Mg Tablet PO 2 mg HS TIFFANY Administration Enoxaparin Sodium 40 mg 01/11/24 09:00 01/15/24 08:30 Enoxaparin 40 Mg/0.4 Ml Syringe SUB-Q 40 mg DAILY TIFFANY Administration Ferrous Sulfate 325 mg 01/10/24 09:00 01/15/24 08:30 Ferrous Sulfate [address] BY MOUTH 325 mg DAILY TIFFANY Administration Glucagon 1 mg 01/10/24 16:44 Glucagon For Inj 1 Mg Vial IM PRN PRN Hypoglycemia Protocol Glucose 15 gm 01/10/24 16:44 Glucose Oral Gel 15 Gm Of Glucse In 37.5 Gm Tube PO PRN PRN Hypoglycemia Protocol Dextrose 1,000 mls @ 100 mls/hr 01/10/24 16:44 Dextrose 5% 1,000 Ml IVPB PRN PRN Hypoglycemia Protocol Dextrose 1,000 mls @ 50 mls/hr 01/11/24 05:05 01/15/24 09:59 Dextrose 10% IV CONT 50 mls/hr .Q20H TIFFANY Administration Levothyroxine Sodium 37.5 mcg 01/10/24 06:30 01/15/24 05:47 Levothyroxine Sodium 12.5 Mcg Tablet PO 37.5 mcg DAILY@0630 TIFFANY Administration Mirtazapine 15 mg 01/10/24 21:00 01/14/24 20:41 Mirtazapine 15 Mg Tablet PO 15 mg HS TIFFANY Administration Multivitamins Therapeutic 1 tablet 01/10/24 09:00 01/15/24 08:30 Multivitamins Therapeutic Tab (*Bkc) PO 1 tablet QAM TIFFANY Administration Ondansetron HCl 4 mg 01/09/24 23:46 Ondansetron Inj
[2024-01-15 17:54] LABS: Glucose Point of Care 105 mg/dl (65-105)
--- NOTE | 2024-01-15 18:02 | WPDGIPROGNO ---
Progress Note: A&P Assessment and Plan (1) Elevated LFTs: Code(s): R79.89 - Other specified abnormal findings of blood chemistry Status: Acute Assessment and Plan: I think that she has GS pancreatitis and this will explain symptoms unfortunately she could not complete HIDA scan or mrcp, ultrasound reviewed with no major changes, normal bile duct size, trace pericholecystic fluid, nonspecific. she will be poor candidate for surgery and even ERCP, given normal bile duct size I do not think that will benefit from ercp discussed with family enteral feeding with DHT but they prefer without it encourage patient to eat more (2) Abdominal pain: Code(s): R10.9 - Unspecified abdominal pain Status: Acute Assessment and Plan: she is not eating much (3) Cholelithiasis: Qualifiers: Cholecystitis presence: without cholecystitis Code(s): K80.20 - Calculus of gallbladder without cholecystitis without obstruction Status: Acute Assessment and Plan: poor surgical candidate (4) Pancreatitis: Qualifiers: Acute pancreatitis complication: unspecified Chronicity: acute Pancreatitis type: unspecified pancreatitis type Qualified Code(s): K85.90 - Acute pancreatitis without necrosis or infection, unspecified Code(s): K85.90 - Acute pancreatitis without necrosis or infection, unspecified Status: Acute (5) Dementia: Code(s): F03.90 - Unspecified dementia, unspecified severity, without behavioral disturbance, psychotic disturbance, mood disturbance, and anxiety Status: Acute Assessment and Plan: advanced Subjective Date/time seen: 01/15/24 18:02 Interval history: poor appetite and confused as usual but seems comfortable she is interacting more today family at bedside Review of Systems Review of Systems: All systems reviewed & are unremarkable except as noted in HPI and below Exam Const: General: no acute distress Other: thin, frail HENMT: Face/Nose/Sinus: Normal nares present Eyes: General: appearance normal, both eyes and all related structures Neck: Neck: supple Resp: Auscultation: clear to auscultation bilaterally Cardio: Rate: regular rate Rhythm: regular rhythm GI: GI Palp: Yes Soft to palpation, Yes Tenderness to palpation present (GI) (minimal ttp in epigastric) and No Guarding due to palpation present (GI) Auscultation: normal bowel sounds Skin: General skin exam: normal color Neuro: Other: confused, contractures + Extrem: General: normal to inspection Psych: Other: unable to assess Objective Data Vital Signs Vital Signs: Vital Signs - 24 hr 01/14/24 21:02 01/15/24 05:14 01/15/24 08:00 Temperature 99.7 F H 99.2 F Pulse Rate 95 81 Respiratory Rate 14 18 Blood Pressure 129/64 108/64 Pulse Oximetry 99 98 Oxygen Delivery Room Air 01/15/24 14:00 Temperature 97.8 F Pulse Rate 89 Respiratory Rate 22 H Blood Pressure 141/77 H Pulse Oximetry 98 Oxygen Delivery Intake/Output Intake/Output: Intake & Output 01/12/24 01/13/24 01/14/24 01/15/24 23:59 23:59 23:59 23:59 Intake Total 2065 1408.7 150 774.2 Output Total 410 1100 2000 1750 Balance 1655 308.7 -1850 -975.8 Meds/Results Medications: Active Medications Generic Name Dose Route Start Last Admin Trade Name Freq PRN Reason Stop Dose Admin Acetaminophen 650 mg 01/10/24 05:17 01/11/24 14:07 Acetaminophen 325 Mg Tablet PO 650 mg TID PRN Administration Pain Rated 5 or Less Amlodipine Besylate 10 mg 01/10/24 09:00 01/15/24 08:30 Amlodipine Besylate 10 Mg Tablet PO 10 mg DAILY TIFFANY Administration Atorvastatin Calcium 80 mg 01/10/24 21:00 01/13/24 20:31 Atorvastatin 40 Mg Tablet PO 80 mg HS TIFFANY Administration Buspirone HCl 10 mg 01/10/24 09:00 01/15/24 08:30 Buspirone Hcl 10 Mg Tablet PO 10 mg TID TIFFANY Administration Dextrose 12.5 gm 01/10/24 16
[2024-01-15] MEDS: DOXAZOSIN MESYLATE 2 MG TABLET PO (20:44)
[2024-01-15] MEDS: SENNA/DOCUSATE SODIUM TABLET 1 TAB PO (20:44)
[2024-01-15] MEDS: MIRTAZAPINE 15 MG TABLET PO (20:44)
[2024-01-15 21:29] VITALS: BP 143/69; PULSE 86; RESP 17; TEMP 36.9; O2SAT 94
[2024-01-15 23:27] LABS: Glucose Point of Care 100 mg/dl (65-105)
[2024-01-16] MEDS: LEVOTHYROXINE SODIUM 12.5 MCG TABLET 37.5 MCG PO (05:30)
[2024-01-16 05:32] LABS: Glucose Point of Care 127 mg/dl (65-105)
[2024-01-16 05:42] VITALS: BP 114/70; PULSE 88; RESP 16; TEMP 36.4; O2SAT 99
[2024-01-16 06:38] LABS: Basophils Percent Auto 0.5 % (0.2-1.2); Eosinophils Absolute Auto 0.1 K/mm3 (0-0.3); Eosinophils Percent Auto 1.9 % (0-4.4); Hematocrit 23.8 % (37.0-47.0); Hemoglobin 7.7 g/dL (12.0-15.0); Immature Granulocyte Absolute 0.06 K/mm3 (0.00-0.031); Immature Granulocyte Percent A 0.9 % (0-0.5); Lymphocytes Absolute Auto 0.93 K/mm3 (0.9-3.2); Lymphocytes Percent Auto 14.7 % (18.3-44.2); Mean Corpuscular HGB Conc 32.4 g/dl (32-36); Mean Corpuscular Hemoglobin 29.2 pg (26-34); Mean Corpuscular Volume 90.2 fl (80-100); Mean Platelet Volume 9.4 fl (7.4-10.4); Monocytes Absolute Auto 0.5 K/mm3 (0.1-0.6); Monocytes Percent Auto 7.4 % (2.6-8.5); Neutrophils Absolute Auto 4.7 K/mm3 (1.3-6.7); Neutrophils Percent Auto 74.6 % (45.5-73.1); Nucleated Red Blood Cells Perc 0.5 % (0.0-0.2); Platelet Count Result 257 k/mm3 (150-375); Red Blood Count 2.64 M/mm3 (4.2-5.4); Red Cell Distribution Width 15.1 % (11.5-14.5); White Blood Count 6.3 K/mm3 (4.5-10.0)
[2024-01-16 06:46] LABS: Alanine Aminotransferase 107 U/L (6-35); Albumin Level 2.8 g/dL (3.5-5.1); Alkaline Phosphatase 742 U/L (38-126); Anion Gap 6 mmol/L (4-12); Aspartate Amino Transferase 164 U/L (14-36); Bilirubin,Total 2.3 mg/dL (0.2-1.3); Blood Urea Nitrogen 7 mg/dL (7-17); Calcium 8.6 mg/dL (8.4-10.2); Carbon Dioxide 30 mmol/L (22-30); Chloride 103 mmol/L (98-107); Estimated CRCL calculation 47 ml/min; Estimated Glomerular Filt Rate > 60; Glucose 124 mg/dL (65-110); Potassium 3.5 mmol/L (3.4-5.0); Sodium 139 mmol/L (137-145)
[2024-01-16] MEDS: MULTIVITAMINS THERAPEUTIC TAB (*BKC) 1 TABLET PO (10:02)
[2024-01-16] MEDS: FERROUS SULFATE 325 MG TABLET DR BY MOUTH (10:02)
[2024-01-16] MEDS: busPIRone HCL 10 MG TABLET PO ×2 (10:02→18:18)
[2024-01-16] MEDS: polyethylene glycoL 3350 17 GM POWD.PACK PO (10:02)
[2024-01-16] MEDS: amLODIPine BESYLATE 10 MG TABLET PO (10:02)
[2024-01-16] MEDS: ENOXAPARIN 40 MG/0.4 ML SYRINGE SUB-Q (10:03)
[2024-01-16] MEDS: CHOLECALCIFEROL 1,000 UNITS TABLET 1000 UNITS PO (10:03)
[2024-01-16 11:55] LABS: Glucose Point of Care 119 mg/dl (65-105)
--- NOTE | 2024-01-16 12:10 | PC.NURSE ---
assisted pt with medications crushed in applesauce this AM; pt then spit them back out onto her gown and bed sheet. Provider aware.
--- NOTE | 2024-01-16 12:12 | PM.IMPN ---
Progress Note: A&P Assessment and Plan (1) Abdominal pain: Code(s): R10.9 - Unspecified abdominal pain Status: Acute (2) Nausea and vomiting: Qualifiers: Vomiting type: unspecified Qualified Code(s): R11.2 - Nausea with vomiting, unspecified Code(s): R11.2 - Nausea with vomiting, unspecified Status: Acute (3) Transaminitis: Code(s): R74.01 - Elevation of levels of liver transaminase levels Status: Acute (4) Bacteremia: Code(s): R78.81 - Bacteremia Status: Acute Assessment and Plan: (5) Somnolence: Code(s): R40.0 - Somnolence Status: Acute Plan 78-year-old female with history of stroke, seizures, dementia, hypertension, and hyperlipidemia who presented to the emergency department via EMS from [place] in [place] for evaluation of nausea and vomiting. The patient has dementia and is oriented 1-2 at baseline. In the emergency room labs were significant for white count 10.9, hemoglobin 10.0, sodium 136, potassium 4.4, lactic 2.2, AST 75, ALT 64, alk-phos 200, total CK 251, lipase 968, TSH 0.112, normal T4 1.97, and total T3 0.61. Her urinalysis showed dark yellow clear urine with +1 protein, trace ketones, trace leukocyte Estrace without bacteria or pyuria. Upper respiratory panel was negative for flu, RSV, COVID. Chest x-ray showed linear discoid atelectasis at the right midlung zone that appear unchanged from previous imaging. CT abdomen and pelvis showed cholelithiasis with chronic mild intrahepatic biliary ductal dilatation, thyromegaly, and large fibroid uterus. She then underwent a right upper quadrant ultrasound which showed cholelithiasis and again possible ductal dilatation but now evident choledochal lithiasis. CT head showed no acute intracranial process with known chronic old infarcts. GI was consulted. MRCP was done which was negative, HIDA scan has been ordered. as per General surgery patient is not a surgical candidate, would need a cholecystostomy tube if intervention is needed. 1. Acute pancreatitis: likely gallstone pancreatitis Poor surgical candidate monitor LFTs, still elevated. Unable to complete HIDA scan or MRI appreciate surgery and GI help pain control IV fluids diet as tolerated Holding statin in setting of elevated LFTs 2. hypertension: Continue with Norvasc 3. history of hypothyroidism: Continue with levothyroxine 4. DVT prophylaxis: Lovenox 5. Code status: DNR 6. Disposition: Pending improvement Time Spent With Patient Time: 40 minutes Subjective Date/time seen: 01/16/24 12:12 Interval history: VSS, CBC normal, LFT's still elevated, overall about the same More awake today. Not eating much but interactive. No abdominal pain Not a surgical candidate. Spoke to family about different options moving forward, including hospice Scheduling zofran BID to address poor appetite Review of Systems Review of Systems: lethargic but wakes up All systems reviewed & are unremarkable except as noted in HPI and below Constitutional: Constitutional: Reports as per HPI and Reports no additional constitutional complaints Eyes: Eyes: Reports as per HPI and Reports no additional eye complaints ENT: Reports system reviewed and no additional complaints, except as documented and Reports as per HPI Cardiovascular: Cardiovascular: Reports as per HPI and Reports no additional cardiovascular complaints Respiratory: Respiratory: Reports as per HPI and Reports no additional respiratory complaints Gastrointestinal: Gastrointestinal: Reports as per HPI and Reports no additional gastrointestinal complaints Genitourinary: Genitourinary: Reports no additional female genitourinary complaints and Reports as per HPI Musculoskeletal: Musculoskeletal: Reports no additional musculoskeletal complaints and Reports as per HPI Integumentary/Breasts: Skin/Breast: Reports system reviewed and no additional complain
[2024-01-16 13:47] VITALS: BP 119/58; PULSE 85; RESP 18; TEMP 36.8; O2SAT 99
[2024-01-16] MEDS: DEXTROSE 10% 1,000 ML 50 ML IV CONT (15:20)
--- NOTE | 2024-01-16 17:03 | WPDGIPROGNO ---
Progress Note: A&P Assessment and Plan (1) Elevated LFTs: Code(s): R79.89 - Other specified abnormal findings of blood chemistry Status: Acute Assessment and Plan: GS pancreatitis and this will explain symptoms unfortunately she could not complete HIDA scan or mrcp, new ultrasound yesterday reviewed with no major changes, normal bile duct size, trace pericholecystic fluid, nonspecific. she will be poor candidate for surgery and even ERCP, given normal bile duct size I do not think that will benefit from ercp discussed with family enteral feeding with DHT but they prefer without it encourage patient to eat more will follow as needed (2) Abdominal pain: Code(s): R10.9 - Unspecified abdominal pain Status: Acute Assessment and Plan: she is not eating much, seems comfortable (3) Cholelithiasis: Qualifiers: Cholecystitis presence: without cholecystitis Code(s): K80.20 - Calculus of gallbladder without cholecystitis without obstruction Status: Acute Assessment and Plan: poor surgical candidate (4) Pancreatitis: Qualifiers: Acute pancreatitis complication: unspecified Chronicity: acute Pancreatitis type: unspecified pancreatitis type Qualified Code(s): K85.90 - Acute pancreatitis without necrosis or infection, unspecified Code(s): K85.90 - Acute pancreatitis without necrosis or infection, unspecified Status: Acute (5) Dementia: Code(s): F03.90 - Unspecified dementia, unspecified severity, without behavioral disturbance, psychotic disturbance, mood disturbance, and anxiety Status: Acute Assessment and Plan: advanced Subjective Date/time seen: 01/16/24 17:03 Interval history: she is more interactive, still poor appetite but she is comfortable family member at bedside Review of Systems Review of Systems: All systems reviewed & are unremarkable except as noted in HPI and below Exam Const: General: no acute distress Other: thin, frail HENMT: Face/Nose/Sinus: Normal nares present Eyes: General: appearance normal, both eyes and all related structures Neck: Neck: supple Resp: Auscultation: clear to auscultation bilaterally Cardio: Rate: regular rate Rhythm: regular rhythm GI: GI Palp: Yes Soft to palpation, Yes Tenderness to palpation present (GI) (minimal ttp in epigastric) and No Guarding due to palpation present (GI) Auscultation: normal bowel sounds Skin: General skin exam: normal color Neuro: Speech: normal speech Other: contractures + she is in good spirits, talking but confused Extrem: General: normal to inspection Psych: Other: unable to assess Objective Data Vital Signs Vital Signs: Vital Signs - 24 hr 01/15/24 21:29 01/16/24 05:42 01/16/24 13:47 Temperature 98.4 F 97.6 F 98.3 F Pulse Rate 86 88 85 Respiratory Rate 17 16 18 Blood Pressure 143/69 H 114/70 119/58 L Pulse Oximetry 94 99 99 Intake/Output Intake/Output: Intake & Output 01/13/24 01/14/24 01/15/24 01/16/24 23:59 23:59 23:59 23:59 Intake Total 1408.7 150 774.2 1050 Output Total 1100 2000 1750 350 Balance 308.7 -1850 -975.8 700 Meds/Results Medications: Active Medications Generic Name Dose Route Start Last Admin Trade Name Freq PRN Reason Stop Dose Admin Acetaminophen 650 mg 01/10/24 05:17 01/11/24 14:07 Acetaminophen 325 Mg Tablet PO 650 mg TID PRN Administration Pain Rated 5 or Less Amlodipine Besylate 10 mg 01/10/24 09:00 01/16/24 10:02 Amlodipine Besylate 10 Mg Tablet PO 10 mg DAILY TIFFANY Administration Atorvastatin Calcium 80 mg 01/10/24 21:00 01/13/24 20:31 Atorvastatin 40 Mg Tablet PO 80 mg HS TIFFANY Administration Buspirone HCl 10 mg 01/10/24 09:00 01/16/24 13:00 Buspirone Hcl 10 Mg Tablet PO Not Given TID TIFFANY Dextrose 12.5 gm 01/10/24 16:44 01/11/24 00:49 Dextrose 50% 25 Gm/50 Ml Syringe IV PUSH 12.5 gm IA
[2024-01-16] MEDS: ACETAMINOPHEN 325 MG TABLET 650 MG PO (18:18)
[2024-01-16] MEDS: ONDANSETRON HCL ODT 4 MG TABLET PO (18:18)
[2024-01-16 18:23] LABS: Glucose Point of Care 126 mg/dl (65-105)
[2024-01-16] MEDS: DOXAZOSIN MESYLATE 2 MG TABLET PO (21:03)
[2024-01-16] MEDS: SENNA/DOCUSATE SODIUM TABLET 1 TAB PO (21:03)
[2024-01-16] MEDS: MIRTAZAPINE 15 MG TABLET PO (21:03)
[2024-01-16 21:05] VITALS: BP 112/62; PULSE 81; RESP 18; TEMP 37; O2SAT 100
[2024-01-16 22:24] VITALS: O2SAT 98
[2024-01-17 00:11] LABS: Glucose Point of Care 126 mg/dl (65-105)
[2024-01-17 06:00] VITALS: BP 114/90; PULSE 83; RESP 22; TEMP 36.7; O2SAT 96
[2024-01-17] MEDS: LEVOTHYROXINE SODIUM 12.5 MCG TABLET 37.5 MCG PO (06:04)
[2024-01-17 06:32] LABS: Glucose Point of Care 118 mg/dl (65-105)
[2024-01-17 06:35] LABS: Basophils Percent Auto 0.6 % (0.2-1.2); Eosinophils Absolute Auto 0.1 K/mm3 (0-0.3); Eosinophils Percent Auto 1.8 % (0-4.4); Hematocrit 24.3 % (37.0-47.0); Immature Granulocyte Absolute 0.06 K/mm3 (0.00-0.031); Immature Granulocyte Percent A 0.9 % (0-0.5); Lymphocytes Absolute Auto 1.18 K/mm3 (0.9-3.2); Mean Corpuscular HGB Conc 32.9 g/dl (32-36); Mean Corpuscular Hemoglobin 29.7 pg (26-34); Mean Corpuscular Volume 90.3 fl (80-100); Mean Platelet Volume 9.4 fl (7.4-10.4); Monocytes Absolute Auto 0.5 K/mm3 (0.1-0.6); Monocytes Percent Auto 6.9 % (2.6-8.5); Neutrophils Absolute Auto 4.7 K/mm3 (1.3-6.7); Neutrophils Percent Auto 71.8 % (45.5-73.1); Nucleated Red Blood Cells Perc 0.3 % (0.0-0.2); Platelet Count Result 270 k/mm3 (150-375); Red Blood Count 2.69 M/mm3 (4.2-5.4); Red Cell Distribution Width 15.3 % (11.5-14.5); White Blood Count 6.5 K/mm3 (4.5-10.0)
[2024-01-17 06:53] LABS: Alanine Aminotransferase 103 U/L (6-35); Albumin Level 2.8 g/dL (3.5-5.1); Alkaline Phosphatase 838 U/L (38-126); Anion Gap 5 mmol/L (4-12); Aspartate Amino Transferase 165 U/L (14-36); Bilirubin,Total 1.8 mg/dL (0.2-1.3); Blood Urea Nitrogen 4 mg/dL (7-17); Calcium 8.7 mg/dL (8.4-10.2); Carbon Dioxide 30 mmol/L (22-30); Chloride 104 mmol/L (98-107); Estimated CRCL calculation 54 ml/min; Estimated Glomerular Filt Rate > 60; Glucose 114 mg/dL (65-110); Magnesium 1.9 mg/dL (1.6-2.3); Potassium 3.2 mmol/L (3.4-5.0); Sodium 139 mmol/L (137-145)
--- NOTE | 2024-01-17 08:26 | P.PNIM_ITS ---
Progress Note: A&P Assessment and Plan (1) Abdominal pain: Code(s): R10.9 - Unspecified abdominal pain Status: Acute (2) Nausea and vomiting: Qualifiers: Vomiting type: unspecified Qualified Code(s): R11.2 - Nausea with vomiting, unspecified Code(s): R11.2 - Nausea with vomiting, unspecified Status: Acute (3) Transaminitis: Code(s): R74.01 - Elevation of levels of liver transaminase levels Status: Acute (4) Bacteremia: Code(s): R78.81 - Bacteremia Status: Acute Assessment and Plan: (5) Somnolence: Code(s): R40.0 - Somnolence Status: Acute Plan 78-year-old female with history of stroke, seizures, dementia, hypertension, and hyperlipidemia who presented to the emergency department via EMS from [place] in [place] for evaluation of nausea and vomiting. The patient has dementia and is oriented 1-2 at baseline. In the emergency room labs were significant for white count 10.9, hemoglobin 10.0, sodium 136, potassium 4.4, lactic 2.2, AST 75, ALT 64, alk-phos 200, total CK 251, lipase 968, TSH 0.112, normal T4 1.97, and total T3 0.61. Her urinalysis showed dark yellow clear urine with +1 protein, trace ketones, trace leukocyte Estrace without bacteria or pyuria. Upper respiratory panel was negative for flu, RSV, COVID. Chest x-ray showed linear discoid atelectasis at the right midlung zone that appear unchanged from previous imaging. CT abdomen and pelvis showed cholelithiasis with chronic mild intrahepatic biliary ductal dilatation, thyromegaly, and large fibroid uterus. She then underwent a right upper quadrant ultrasound which showed cholelithiasis and again possible ductal dilatation but now evident choledochal lithiasis. CT head showed no acute intracranial process with known chronic old infarcts. GI was consulted. MRCP was done which was negative, HIDA scan has been ordered. as per General surgery patient is not a surgical candidate, would need a cholecystostomy tube if intervention is needed. Acute pancreatitis: likely gallstone pancreatitis Poor surgical candidate monitor LFTs, still elevated. Unable to complete HIDA scan or MRI appreciate surgery and GI help pain control IV fluids diet as tolerated Holding statin in setting of elevated LFTs hypertension: Continue with Norvasc history of hypothyroidism: Continue with levothyroxine DVT prophylaxis: Lovenox Code status: DNR Disposition: Pending improvement Time Spent With Patient Time: 35 minutes Subjective Date/time seen: 01/17/24 08:26 Interval history: she is more interactive, still poor appetite but she is comfortable Family considering hospice, would like more information, have a meeting tomorrow at 10am Nonsurgical Review of Systems Review of Systems: lethargic but wakes up All systems reviewed & are unremarkable except as noted in HPI and below Constitutional: Constitutional: Reports as per HPI and Reports no additional constitutional complaints Eyes: Eyes: Reports as per HPI and Reports no additional eye complaints ENT: Reports system reviewed and no additional complaints, except as documented and Reports as per HPI Cardiovascular: Cardiovascular: Reports as per HPI and Reports no additional cardiovascular complaints Respiratory: Respiratory: Reports as per HPI and Reports no additional respiratory complaints Gastrointestinal: Gastrointestinal: Reports as per HPI and Reports no additional gastrointestinal c
[2024-01-17] MEDS: ONDANSETRON HCL ODT 4 MG TABLET PO ×2 (09:07→16:46)
[2024-01-17] MEDS: traMADol HCL (*CRX) 25 MG TABLET PO (09:07)
[2024-01-17] MEDS: ENOXAPARIN 40 MG/0.4 ML SYRINGE SUB-Q (09:07)
[2024-01-17] MEDS: CHOLECALCIFEROL 1,000 UNITS TABLET 1000 UNITS PO (09:07)
[2024-01-17] MEDS: busPIRone HCL 10 MG TABLET PO ×3 (09:08→16:46)
[2024-01-17] MEDS: FERROUS SULFATE 325 MG TABLET DR BY MOUTH (09:08)
[2024-01-17] MEDS: MULTIVITAMINS THERAPEUTIC TAB (*BKC) 1 TABLET PO (09:08)
[2024-01-17] MEDS: amLODIPine BESYLATE 10 MG TABLET PO (09:08)
--- NOTE | 2024-01-17 10:23 | PCNFU ---
Nutrition Follow-Up Complete: Increased nutrient needs related to altered skin integrity as evidenced by noted multiple deep tissure pressure injuries Goal:PO intake 50% or greater for meals and supplements Pt not meeting goal, continue with same goal. Pt current nutrition is full liquids, Ensure compact TID for an additional 220kcals, 9g protein per shake Nutrition recommendation: add nutrition ice cream for an additional 300lkcals, 9g protein per cup Last recorded weight is 58 kg. Bowel Motility: +BM 01/11 Labs Reviewed: HGb:8.0, HCT:24.3, Alb:2.8, K:3.2, BUN:4, Cr:0.6 Meds Noted: lovenox, remeron, zofran, MVI Skin: DTPI to toes, foot and ankle Additional Notes: Pt continues on a full liquid diet, intake remains poor. Supplements in place. Will add nutrition ice cream cups to try and encourage more po intake. Monitor intake, wt, labs, skin. Follow up in 3 days.
[2024-01-17 11:51] LABS: Glucose Point of Care 114 mg/dl (65-105)
[2024-01-17] MEDS: DEXTROSE 10% 1,000 ML 50 ML IV CONT (11:58)
[2024-01-17 13:52] VITALS: BP 133/78; PULSE 62; RESP 22; TEMP 36.7; O2SAT 97
[2024-01-17] MEDS: POTASSIUM CHLORIDE INJ 40 MEQ in SODIUM CHLORIDE 0.9% IV 500 ML 130 MEQ IVPB (14:30)
[2024-01-17 18:17] LABS: Glucose Point of Care 82 mg/dl (65-105)
[2024-01-17] MEDS: MIRTAZAPINE 15 MG TABLET PO (20:30)
[2024-01-17] MEDS: DOXAZOSIN MESYLATE 2 MG TABLET PO (20:30)
[2024-01-17] MEDS: SENNA/DOCUSATE SODIUM TABLET 1 TAB PO (20:30)
[2024-01-17 21:13] LABS: Glucose Point of Care 96 mg/dl (65-105)
[2024-01-17 21:26] VITALS: BP 138/85; PULSE 99; RESP 20; TEMP 36.9; O2SAT 100
[2024-01-18 00:31] LABS: Glucose Point of Care 117 mg/dl (65-105)
[2024-01-18] MEDS: LEVOTHYROXINE SODIUM 12.5 MCG TABLET 37.5 MCG PO (05:51)
[2024-01-18 06:00] VITALS: BP 121/60; PULSE 79; RESP 16; TEMP 36.4; O2SAT 100
[2024-01-18 06:03] LABS: Glucose Point of Care 115 mg/dl (65-105)
[2024-01-18 07:05] LABS: Basophils Percent Auto 0.5 % (0.2-1.2); Eosinophils Absolute Auto 0.2 K/mm3 (0-0.3); Eosinophils Percent Auto 2.8 % (0-4.4); Hematocrit 23.9 % (37.0-47.0); Hemoglobin 7.8 g/dL (12.0-15.0); Immature Granulocyte Absolute 0.05 K/mm3 (0.00-0.031); Immature Granulocyte Percent A 0.9 % (0-0.5); Lymphocytes Absolute Auto 1.06 K/mm3 (0.9-3.2); Lymphocytes Percent Auto 18.7 % (18.3-44.2); Mean Corpuscular HGB Conc 32.6 g/dl (32-36); Mean Corpuscular Hemoglobin 29.8 pg (26-34); Mean Corpuscular Volume 91.2 fl (80-100); Mean Platelet Volume 9.7 fl (7.4-10.4); Monocytes Absolute Auto 0.4 K/mm3 (0.1-0.6); Monocytes Percent Auto 7.2 % (2.6-8.5); Neutrophils Percent Auto 69.9 % (45.5-73.1); Nucleated Red Blood Cells Perc 0.4 % (0.0-0.2); Platelet Count Result 273 k/mm3 (150-375); Red Blood Count 2.62 M/mm3 (4.2-5.4); Red Cell Distribution Width 15.7 % (11.5-14.5); White Blood Count 5.7 K/mm3 (4.5-10.0)
[2024-01-18 07:12] LABS: Alanine Aminotransferase 98 U/L (6-35); Albumin Level 2.6 g/dL (3.5-5.1); Alkaline Phosphatase 861 U/L (38-126); Anion Gap 6 mmol/L (4-12); Aspartate Amino Transferase 145 U/L (14-36); Bilirubin,Total 1.3 mg/dL (0.2-1.3); Blood Urea Nitrogen 3 mg/dL (7-17); Calcium 8.5 mg/dL (8.4-10.2); Carbon Dioxide 27 mmol/L (22-30); Chloride 105 mmol/L (98-107); Estimated CRCL calculation 54 ml/min; Estimated Glomerular Filt Rate > 60; Glucose 121 mg/dL (65-110); Magnesium 1.9 mg/dL (1.6-2.3); Potassium 3.7 mmol/L (3.4-5.0); Sodium 138 mmol/L (137-145)
[2024-01-18 08:00] VITALS: O2SAT 100
--- NOTE | 2024-01-18 08:12 | PM.IMPN ---
Progress Note: A&P Assessment and Plan (1) Abdominal pain: Code(s): R10.9 - Unspecified abdominal pain Status: Acute (2) Nausea and vomiting: Qualifiers: Vomiting type: unspecified Qualified Code(s): R11.2 - Nausea with vomiting, unspecified Code(s): R11.2 - Nausea with vomiting, unspecified Status: Acute (3) Transaminitis: Code(s): R74.01 - Elevation of levels of liver transaminase levels Status: Acute (4) Bacteremia: Code(s): R78.81 - Bacteremia Status: Acute Assessment and Plan: (5) Somnolence: Code(s): R40.0 - Somnolence Status: Acute Plan 78-year-old female with history of stroke, seizures, dementia, hypertension, and hyperlipidemia who presented to the emergency department via EMS from [place] in [place] for evaluation of nausea and vomiting. The patient has dementia and is oriented 1-2 at baseline. In the emergency room labs were significant for white count 10.9, hemoglobin 10.0, sodium 136, potassium 4.4, lactic 2.2, AST 75, ALT 64, alk-phos 200, total CK 251, lipase 968, TSH 0.112, normal T4 1.97, and total T3 0.61. Her urinalysis showed dark yellow clear urine with +1 protein, trace ketones, trace leukocyte Estrace without bacteria or pyuria. Upper respiratory panel was negative for flu, RSV, COVID. Chest x-ray showed linear discoid atelectasis at the right midlung zone that appear unchanged from previous imaging. CT abdomen and pelvis showed cholelithiasis with chronic mild intrahepatic biliary ductal dilatation, thyromegaly, and large fibroid uterus. She then underwent a right upper quadrant ultrasound which showed cholelithiasis and again possible ductal dilatation but now evident choledochal lithiasis. CT head showed no acute intracranial process with known chronic old infarcts. GI was consulted. MRCP was done which was negative, HIDA scan has been ordered. as per General surgery patient is not a surgical candidate, would need a cholecystostomy tube if intervention is needed. Acute pancreatitis: likely gallstone pancreatitis Poor surgical candidate monitor LFTs, still elevated. Unable to complete HIDA scan or MRI appreciate surgery and GI help pain control IV fluids diet as tolerated Holding statin in setting of elevated LFTs hypertension: Continue with Norvasc history of hypothyroidism: Continue with levothyroxine DVT prophylaxis: Lovenox Code status: DNR Disposition: Pending improvement Subjective Date/time seen: 01/18/24 08:12 Interval history: she is more interactive, still poor appetite but she is comfortable Family considering hospice, would like more information, have a meeting tomorrow at 10am Nonsurgical Review of Systems Review of Systems: lethargic but wakes up All systems reviewed & are unremarkable except as noted in HPI and below Constitutional: Constitutional: Reports as per HPI and Reports no additional constitutional complaints Eyes: Eyes: Reports as per HPI and Reports no additional eye complaints ENT: Reports system reviewed and no additional complaints, except as documented and Reports as per HPI Cardiovascular: Cardiovascular: Reports as per HPI and Reports no additional cardiovascular complaints Respiratory: Respiratory: Reports as per HPI and Reports no additional respiratory complaints Gastrointestinal: Gastrointestinal: Reports as per HPI and Reports no additional gastrointestinal complaints Genitourinary: Genitourinary: Reports no additional female genitourinary complaints and Reports as per HPI Musculoskeletal: Musculoskeletal: Reports no additional musculoskeletal complaints and Reports as per HPI Integumentary/Breasts: Skin/Breast: Reports system reviewed and no additional complaints, except as docu and Reports as per HPI Neurologic: Reports system reviewed and no additional complaints, except as documented and Reports as per HPI Psychiatric: Psyc
[2024-01-18] MEDS: ENOXAPARIN 40 MG/0.4 ML SYRINGE SUB-Q (08:15)
[2024-01-18] MEDS: busPIRone HCL 10 MG TABLET PO (08:15)
[2024-01-18] MEDS: CHOLECALCIFEROL 1,000 UNITS TABLET 1000 UNITS PO (08:15)
[2024-01-18] MEDS: amLODIPine BESYLATE 10 MG TABLET PO (08:15)
[2024-01-18] MEDS: MULTIVITAMINS THERAPEUTIC TAB (*BKC) 1 TABLET PO (08:15)
[2024-01-18] MEDS: ONDANSETRON HCL ODT 4 MG TABLET PO (08:16)
[2024-01-18] MEDS: polyethylene glycoL 3350 17 GM POWD.PACK PO (08:16)
[2024-01-18] MEDS: FERROUS SULFATE 325 MG TABLET DR BY MOUTH (08:16)
[2024-01-18] MEDS: DEXTROSE 10% 1,000 ML 50 ML IV CONT (11:35)
--- NOTE | 2024-01-18 12:05 | PM.DS ---
DS: Admitting Diagnosis Discharge Date 01/18/24 Admitting Diagnosis Acute Pancreatitis DS: Discharge Diagnosis Discharge Diagnosis (1) Acute pancreatitis: Code(s): K85.90 - Acute pancreatitis without necrosis or infection, unspecified Status: Acute Plan Hospice to follow after discharge DS: Summary Hospital Course Reason for hospitalization: Acute Pancreatitis Hospital Course: 78-year-old female with history of stroke, seizures, dementia, hypertension, and hyperlipidemia who presented to the emergency department via EMS from [place] in [place] for evaluation of nausea and vomiting, found to have acute pancreatitis. She had elevated LFT's and suspect gallstones causing symptoms but she was not a surgical candidate. Pain and symptoms well controlled for several days prior to discharge. Received 1 dose of tramadol on 01/16. Given the limited options for treatment, family opted to transition her to hospice. [facility] hospice will follow her at the facility. The patient has dementia and is oriented 1-2 at baseline. In the emergency room labs were significant for white count 10.9, hemoglobin 10.0, sodium 136, potassium 4.4, lactic 2.2, AST 75, ALT 64, alk-phos 200, total CK 251, lipase 968, TSH 0.112, normal T4 1.97, and total T3 0.61. Her urinalysis showed dark yellow clear urine with +1 protein, trace ketones, trace leukocyte Estrace without bacteria or pyuria. Upper respiratory panel was negative for flu, RSV, COVID. Chest x-ray showed linear discoid atelectasis at the right midlung zone that appear unchanged from previous imaging. CT abdomen and pelvis showed cholelithiasis with chronic mild intrahepatic biliary ductal dilatation, thyromegaly, and large fibroid uterus. She then underwent a right upper quadrant ultrasound which showed cholelithiasis and again possible ductal dilatation but now evident choledochal lithiasis. CT head showed no acute intracranial process with known chronic old infarcts. GI was consulted. MRCP was done which was negative, HIDA scan ordered but unable to complete. As per General surgery patient is not a surgical candidate, would need a cholecystostomy tube, but patient was not reporting abdominal pain. Goals of Care Patient enrolled in hospice with family. Comfort Care: DNR/DNI. Symptomatic treatment as needed Acute pancreatitis: likely gallstone pancreatitis. Poor surgical candidate. monitored LFT's during admission. Peak Bilirubin 3.2>1.3 01/17, AST 187>145, ALT 117>98 at discharge. Continued hydration. Unable to complete HIDA scan or MRI, appreciate surgery and GI help. Pain control with tylenol, tramadol as needed. Statin stopped hypertension: Blood pressure controlled during admission on Norvasc 10 and doxazosin 2mg. Also continued fluids during admission --Held doxazosin and decreased norvasc to 5mg at discharge given poor PO intake. history of hypothyroidism: Continue with levothyroxine Status at Discharge Cognitive/behavioral status at discharge: Awake, confused Time Spent with Patient Time attestation: Total time spent providing and/or coordinating discharge services: Exam Narrative: General - Awake and alert. No acute distress Eyes - PERRLA, EOM intact ENT - No thrush, No erythema Neck - No noticeable or palpable swelling Lymph Nodes - No lymphadenopathy Cardiovascular - RRR no m/r/g, no JVD Lungs: Clear to auscultation, No wheezing, use of accessory muscles, no crackles or wheezes. Skin - Skin warm and dry, no wounds or rashes Abdomen - Normal bowel sounds, abdomen soft and nontender Extremities - No edema, cyanosis or clubbing Musculoskeletal - Contracted extremities, pain to legs Neurological ? Alert and oriented x 0-1, CN 2-12 grossly intact. Psych: Normal mood and affect DS: Data Data Completed and Pending Labs on day of discharge: Labs from last 24 hours 01/18/24 01/18/24 01/17/24 06:50 05:58 23:46 WBC 5.7 RBC 2.62 L Hgb 7.8
[2024-01-18 12:18] LABS: Glucose Point of Care 116 mg/dl (65-105)
== END 2024-01-18 16:52 | disposition hospice, home (50) | DRG 282 ==
LOC: ANHED 23:45 → ANH3MEDSUR 01-10 00:34
PROVIDERS: Nurse Practitioner; Nurse Practitioner Acute Care; Admitting Provider Internal Medicine; Emergency Provider Physician Assistant; PCP Internal Medicine; Visit Provider Nurse Practitioner Acute Care
DX: K85.10 Biliary acute pancreatitis without necrosis or infection (principal); K80.20 Calculus of gallbladder without cholecystitis without obstruction; I10 Essential (primary) hypertension; E78.5 Hyperlipidemia, unspecified; E03.9 Hypothyroidism, unspecified; N31.9 Neuromuscular dysfunction of bladder, unspecified; R40.0 Somnolence; M19.90 Unspecified osteoarthritis, unspecified site; G40.909 Epilepsy, unspecified, not intractable, without status epilepticus; F41.9 Anxiety disorder, unspecified; F03.90 Unspecified dementia, unspecified severity, without behavioral disturbance, psychotic disturbance, mood disturbance, and anxiety; Z20.822 Contact with and (suspected) exposure to COVID-19; Z86.73 Personal history of transient ischemic attack (TIA), and cerebral infarction without residual deficits; Z51.5 Encounter for palliative care
CPT/HCPCS: 36415; 70450; 71045; 74177; 74181; 76376; 76705; 80048; 80053; 80076; 81001; 82140; 82533; 82550; 82803; 82948; 83605; 83690; 83735; 84100; 84439; 84443; 84480; 85025; 85055; 87040; 87637; 93005; 96361; 96365; 96366; 96374; 96375; 99285; A9270; G0378; G0379; J1650; J2060; J2405; J2543; J3480; J7030; J7040; J7120; Q9967